=== PATIENT | female | born 1985 | race Caucasian/White ===

== ENCOUNTER → 2017-03-10 | Outpatient (CLI) | payer BC ==
[~2017-03-10] MED LIST: AMOX500C3 PO
[2017-03-10 14:41] LABS: BASO % 0.1 %; BASO ABS # 0.01 K/uL (0-0.2); COMPLETE YES; IG% 0.3 %; LYMPH % 22.5 %; LYMPH ABS # 1.61 K/uL (1.2-3.4); MEAN CORPUSCULAR HEMOGLOBIN 30.3 pg (25-34); MEAN CORPUSCULAR HGB CONC 34.4 g/dl (32-36); MEAN PLATELET VOLUME 11.5 fL (7.4-10.4); MONO % 7.7 %; NEUT % 67.4 %; PLATELET COUNT 224 K/uL (130-400); RED BLOOD COUNT 4.09 M/uL (4.2-5.4); WHITE BLOOD COUNT 7.17 K/uL (4.8-10.8)
[2017-03-13 02:55] LABS: CHLAMYDIA TRACH RNA*** NOT DETECTED (NOT DETECTED); GC (NEIS GONORRHOEAE)RNA** NOT DETECTED (NOT DETECTED)
== END | disposition home or self-care (01) ==
LOC: C.LAB1850 13:19
PROVIDERS: ATTEND Obstetrics & Gynecology
DX: Z34.81 Encounter for supervision of other normal pregnancy, first trimester (principal)

== ENCOUNTER → 2017-07-22 | Outpatient (CLI) | payer OTHER ==
[2017-07-22 12:39] LABS: HEMATOCRIT 33.8 % (37-47)
[2017-07-22 13:15] LABS: URINE APPEARANCE CLEAR (CLEAR); URINE BILIRUBIN NEG (NEG); URINE COLOR YELLOW; URINE EPITHELIAL CELL AUTO >30 /lpf (0-5); URINE NITRITE NEG (NEG); URINE SPECIFIC GRAVITY 1.019 (1.000-1.030); UROBILINOGEN NEG (NEG)
[2017-07-22 13:20] LABS: MANUAL MICROSCOPIC REQUIRED? NO; REVIEW REQ? NO
== END | disposition home or self-care (01) ==
LOC: C.LAB1850 10:37
PROVIDERS: ATTEND Obstetrics & Gynecology
DX: Z34.83 Encounter for supervision of other normal pregnancy, third trimester (principal)

== ENCOUNTER 2017-08-17 21:16 | Emergency (ER) | payer OTHER ==
[~2017-08-17] VITALS: Ht 154.9 cm; Wt 72.3 kg
[2017-08-17 21:20] VITALS: TEMP 36.9; Ht 154.9 cm; Wt 72.3 kg
[2017-08-17] MEDS ORDERED: PRENTAB26 PO (22:00)
[2017-08-17] MEDS ORDERED: CYCL5TAB PO (22:00)
[2017-08-17] MEDS ORDERED: FLUO10CA48 PO (22:00)
[2017-08-17] MEDS ORDERED: FAMO20TA9 PO (22:09)
[2017-08-17] MEDS ORDERED: NVLNI SC (22:09)
--- NOTE | 2017-08-17 22:09 | EMERGENCY ROOM VISIT NOTE ---
History Report prepared by Robin: Daniel Batista Under the Supervision of: Dr. Wendy Polanco M.D. First contact with patient: 21:36 Chief Complaint: HEADACHE Stated Complaint: IN AND OUT DOUBLE VISION, LIGHT SENSITIVITY, History of Present Illness The patient is a 32 year old female who is 32 weeks with gestational diabetes presents to the Emergency Room with complaints of intermittent headaches since last night. The patient's OBGYN advised her to come to the ED for evaluation. She states that when she came back from grocery shopping last night she felt tired and her muscles felt really stiff. She started to experience double vision and a difficult time focusing her vision. The patient reports that she sat down to dinner with her family and her daughter noticed that her right eye was crossed. She notes that she felt confused as though she was playing a video game in her head. She states that when her vision returned to normal, she noticed her body was colder than normal. She states that she was wearing four layers of clothing and could not get warm. She states that the double vision returned again this evening and has been coming and going. She also notes right eye pain. She currently rates her pain an 8/10 in severity. She denies any history of similar symptoms. The patient denies any history of tick bites. She notes her blood pressure is usually normal, though it has been higher than normal today. She has a history of fibromyalgia. The patient notes her sugar has been average, though the highest it has recently been is 180 and the lowest it has been is 30. She states that it rarely gets high and has been getting lower than normal and hovering around 55. She notes that it was 115 last night. She took 25 units of insulin 30 minutes before she ate. She notes mild upper abdominal discomfort as well. Source of History: patient Onset: last night Position: head Symptom Intensity: 8/10 Quality: ache Timing: intermittent Associated Symptoms: + abdominal pain (mild) Note: She notes double vision, difficulty focusing her vision, and right eye pain. The patient denies a history of tick bites. Review of Systems See HPI for pertinent positives & negatives. A total of 10 systems reviewed and were otherwise negative. Past Medical & Surgical Medical Problems: (1) Acute urinary tract infection (2) Depression (3) fibromyalgia (4) Generalized anxiety disorder (5) Laparoscopy (6) segmental neurofibromatosis (7) [place] Teeth Removal Family History Gallbladder disease Hypertension Social History Smoking Status: Current Every Day Smoker (2-3 cigarettes/day) Alcohol Use: none Marital Status: Housing Status: lives with family Occupation Status: employed Current/Historical Medications Scheduled Famotidine (Pepcid), 20 MG PO DAILY Fluoxetine (Prozac), 10 MG PO DAILY Insulin Human NPH (Novolin N), 25-30 UNITS SC AC Multivit/Min/Iron/Fol Ac/Pren ( Vitamin), 1 TAB PO DAILY Scheduled PRN Cyclobenzaprine Hcl (Flexeril), 5 MG PO HS PRN for Muscle Spasms Allergies Coded Allergies: Ciprofloxacin (Verified Adverse Reaction, Intermediate, nausea/depression , 08/17/17) also makes her depressed Moxifloxacin (Verified Adverse Reaction, Unknown, RASH, 08/17/17) PT REPORTS GETTING "THRUSH" AFTER USING [place] AND WANTS IT LISTED A DRUG SHE HAS A REACTION TO. Physical Exam Vital Signs Date Time Temp Pulse Resp B/P (MAP) Pulse Ox O2 Delivery O2 Flow Rate FiO2 08/18/17 00:36 93 20 118/80 98 08/17/17 23:15 97 16 134/95 98 Room Air 08/17/17 22:08 106 08/17/17 21:20 36.9 110 18 138/84 98 Room Air Physical Exam Vital signs reviewed. General: Well-appearing, in no significant distress. HEENT: No scleral icterus, PERRLA, EOMI, neck supple. Atraumatic. Cardiovascular: Regular rate and rhythm, no extra sounds. Pulmonary: Clear to auscultation bilaterally, normal work of breathing. Abdomen: Soft, nontender, nondistended, positive bowel sounds. Gravid abdomen. Musculoskeletal: Atraumatic, no peripheral edema. Neurologic: Patient awake alert and oriented x 3, full strength in all 4 extremities. Cranial nerves 2 through 12 grossly intact. Skin: Warm, dry, no rash Medical Decision & Procedures Laboratory Results 08/17/17 22:10 Red Blood Count 3.56, Mean Corpuscular Volume 89.9, Mean Corpuscular Hemoglobin 31.2, Mean Corpuscular Hemoglobin Concent 34.7, Mean Platelet Volume 11.2, Neutrophils (%) (Auto) 66.0, Lymphocytes (%) (Auto) 24.2, Monocytes (%) (Auto) 7.0, Eosinophils (%) (Auto) 2.5, Basophils (%) (Auto) 0.1, Neutrophils # (Auto) 5.60, Lymphocytes # (Auto) 2.05, Monocytes # (Auto) 0.59, Eosinophils # (Auto) 0.21, Basophils # (Auto) 0.01 08/17/17 22:10 Test 08/17/17 21:57 08/17/17 22:10 Urine Color YELLOW Urine Appearance CLEAR (CLEAR) Urine pH 6.0 (4.5-7.5) Urine Specific [place] 1.018 (1.000-1.030) Urine Protein NEG (NEG) Urine Glucose (UA) NEG (NEG) Urine Ketones NEG (NEG) Urine Occult Blood NEG (NEG) Urine Nitrite NEG (NEG) Urine Bilirubin NEG (NEG) Urine Urobilinogen NEG (NEG) Urine Leukocyte Esterase MODERATE (NEG) Urine WBC (Auto) 10-30 /hpf (0-5) Urine RBC (Auto) 0-4 /hpf (0-4) Urine Hyaline Casts (Auto) 1-5 /lpf (0-5) Urine Epithelial Cells (Auto) >30 /lpf (0-5) Urine Bacteria (Auto) NEG (NEG) White Blood Count 8.48 K/uL (4.8-10.8) Red Blood Count 3.56 M/uL (4.2-5.4) Hemoglobin 11.1 g/dL (12.0-16.0) Hematocrit 32.0 % (37-47) Mean Corpuscular Volume 89.9 fL (80-100) Mean Corpuscular Hemoglobin 31.2 pg (25-34) Mean Corpuscular Hemoglobin Concent 34.7 g/dl (32-36) Platelet Count 183 K/uL (130-400) Mean Platelet Volume 11.2 fL (7.4-10.4) Neutrophils (%) (Auto) 66.0 % Lymphocytes (%) (Auto) 24.2 % Monocytes (%) (Auto) 7.0 % Eosinophils (%) (Auto) 2.5 % Basophils (%) (Auto) 0.1 % Neutrophils # (Auto) 5.60 K/uL (1.4-6.5) Lymphocytes # (Auto) 2.05 K/uL (1.2-3.4) Monocytes # (Auto) 0.59 K/uL (0.11-0.59) Eosinophils # (Auto) 0.21 K/uL (0-0.5) Basophils # (Auto) 0.01 K/uL (0-0.2) RDW Standard Deviation 43.4 fL (36.4-46.3) RDW Coefficient of Variation 13.3 % (11.5-14.5) Immature Granulocyte % (Auto) 0.2 % Immature Granulocyte # (Auto) 0.02 K/uL (0.00-0.02) Prothrombin Time 9.5 SECONDS (9.0-12.0) Prothromb Time International Ratio 0.9 (0.9-1.1) Activated Partial Thromboplast Time 27.8 SECONDS (21.0-31.0) Partial Thromboplastin Ratio 1.1 Anion Gap 12.0 mmol/L (3-11) Est Creatinine Clear Calc Drug Dose 173.2 ml/min Estimated GFR () > 150.0 Estimated GFR (Non- 134.7 BUN/Creatinine Ratio 18.4 (10-20) Calcium Level 8.7 mg/dl (8.5-10.1) Total Bilirubin 0.2 mg/dl (0.2-1) Direct Bilirubin < 0.1 mg/dl (0-0.2) Aspartate Amino Transf (AST/SGOT) 15 U/L (15-37) Alanine Aminotransferase (ALT/SGPT) 18 U/L (12-78) Alkaline Phosphatase 76 U/L (45-117) Total Protein 6.1 gm/dl (6.4-8.2) Albumin 2.6 gm/dl (3.4-5.0) Thyroid Stimulating Hormone (TSH) 0.271 uIu/ml (0.300-4.500) Free Thyroxine 0.84 ng/dl (0.80-1.60) Laboratory results per my review. Medications Administered Medications (Trade) Dose Ordered Sig/Noreen Route Start Time Stop Time Status Last Admin Dose Admin Morphine Sulfate (MoRPHine SULFATE INJ) 4 mg NOW STAT IV 08/17/17 22:49 08/17/17 22:50 DC 08/17/17 23:38 4 MG Ondansetron HCl (Zofran Inj) 4 mg NOW STAT IV 08/17/17 22:49 08/17/17 22:50 DC 08/17/17 23:36 4 MG Acetaminophen (Tylenol Tab) 650 mg NOW STAT PO 08/17/17 22:49 08/17/17 22:50 DC 08/17/17 23:35 650 MG Sodium Chloride 1,000 ml @ 999 mls/hr Q1H1M STAT IV 08/17/17 22:50 08/17/17 23:56 DC 08/17/17 23:35 999 MLS/HR ECG Indication: other (headache) Rate (beats per minute): 97 Rhythm: normal sinus Findings: no acute ischemic change, no ectopy Comparison ECG Date: Change: Patient's electrocardiogram interpreted by me. ED Course 2148: Past medical records reviewed. The patient was evaluated in room C11B. A complete history and physical examination was performed. 2248: Ordered Tylenol 650 mg PO, Zofran 4 mg IV, and Morphine Sulfate 4 mg IV 0: Ordered Sodium Chloride 1,000 ml @ 999 mls/hr IV 2325: I reassessed the patient at this time. The patient's insurance lapsed. She has refused an MRI and further workup, because she cannot afford it. She was referred to [facility] and still declines further workup. 0015: I reassessed the patient at this time. She is asymptomatic and resting comfortably. I discussed the results and treatment plan with the patient. I answered all pertaining questions that she had. She expressed understanding and verbalized agreement. The patient will be discharged home. 0033: I spoke with .SWATHI Cuenca. We discussed the patients case. He will follow up with the patient. Medical Decision Differential diagnosis: Etiologies such as migraine headache, meningitis, sinusitis, CO exposure, ICH, SAH, infection, tumor, headache, sinus thrombosis, arterial dissection, as well as others were entertained. This patient was evaluated and appeared to be in no significant distress. IV access was obtained and laboratory work was drawn. The patient was placed on the cardiac cath tech. She was hydrated with normal saline solution. Patient did receive IV morphine and Zofran for her pain. Patient's urinalysis reveals WBCs but is contaminated with epithelial cells. There is no protein. Laboratory work reveals a normal WBC with a mild anemia and a stable platelet count. MRI of the brain was ordered due to the complaints of diplopia and what sounds like a cranial nerve palsy. The patient was informed that her insurance is not currently active by registration. The patient became very anxious and tearful. She is currently from her and is not quite sure how it happened. She has declined the MRI despite being referred to medical access and informed of the karen care program through the hospital. She states she cannot afford the MRI. The patient has no double vision currently. There is no evidence of cranial nerve palsy on exam. I did discuss the presentation with Dr. Gregory of [facility]. I do feel of the patient should likely have an MRI. She was informed of the concern and reiterated her unwillingness to perform this study due to insurance issues. She was again encouraged to have the study but declined. The patient was discharged to follow-up with her physicians as an outpatient. She will return to the ER immediately for worsening of symptoms or any medical concerns. Medication Reconcilliation Current Medication List: was personally reviewed by me Blood Pressure Screening Patient's blood pressure: Elevated blood pressure Blood pressure disposition: Elevated BP felt to be situational Consults Time Called: [id number] Consulting Physician: SWATHI Cuenca Returned Call: [phone] I spoke with .SWATHI Cuenca. We discussed the patients case. He will follow up with the patient. Impression Primary Impression: Headache Additional Impressions: Diplopia Third trimester Scribe Attestation The scribe's documentation has been prepared under my direction and personally reviewed by me in its entirety. I confirm that the note above accurately reflects all work, treatment, procedures, and medical decision making performed by me. Departure Information Dispostion Home / Self-Care Referrals No Doctor, Assigned (PCP) Forms HOME CARE DOCUMENTATION FORM, IMPORTANT VISIT INFORMATION Patient Instructions My [facility] Additional Instructions Diagnosis: Headache, diplopia, third trimester You have declined further evaluation including MRI of the brain tonight. Please return if you reconsider or have a change in symptoms. Tylenol 650 mg every 6 hours as needed for pain. Drink plenty of clear fluids. Follow-up with [employer] this week for reevaluation. Return to the emergency department for worsening of symptoms or any medical concerns. Problem Qualifiers
[2017-08-17 22:20] LABS: BASO % 0.1 %; BASO ABS # 0.01 K/uL (0-0.2); EOS % 2.5 %; EOS ABS # 0.21 K/uL (0-0.5); HEMOGLOBIN 11.1 g/dL (12.0-16.0); IG# 0.02 K/uL (0.00-0.02); LYMPH % 24.2 %; LYMPH ABS # 2.05 K/uL (1.2-3.4); MEAN CELL VOLUME 89.9 fL (80-100); MEAN CORPUSCULAR HEMOGLOBIN 31.2 pg (25-34); MEAN CORPUSCULAR HGB CONC 34.7 g/dl (32-36); MEAN PLATELET VOLUME 11.2 fL (7.4-10.4); MONO ABS # 0.59 K/uL (0.11-0.59); PLATELET COUNT 183 K/uL (130-400); RED CELL DISTRIBUTION WIDTH CV 13.3 % (11.5-14.5); RED CELL DISTRIBUTION WIDTH SD 43.4 fL (36.4-46.3); WHITE BLOOD COUNT 8.48 K/uL (4.8-10.8)
[2017-08-17 22:37] LABS: ALBUMIN 2.6 gm/dl (3.4-5.0); ALT/SGPT 18 U/L (12-78); BLOOD UREA NITROGEN 8 mg/dl (7-18); CALCIUM 8.7 mg/dl (8.5-10.1); CARBON DIOXIDE 22 mmol/L (21-32); CREATININE 0.42 mg/dl (0.60-1.20); GLUCOSE 103 mg/dl (70-99); POTASSIUM 3.4 mmol/L (3.5-5.1); SODIUM 140 mmol/L (136-145)
[2017-08-17 22:41] LABS: INR 0.9 (0.9-1.1); PTT PATIENT 27.8 SECONDS (21.0-31.0)
[2017-08-17 22:48] LABS: ALKALINE PHOSPHATASE 76 U/L (45-117); AST/SGOT 15 U/L (15-37); TOTAL PROTEIN 6.1 gm/dl (6.4-8.2)
[2017-08-17] MEDS ORDERED: ONDANSETRON INJ 2 MG/ML 2 ML VIAL IV STA (22:49)
[2017-08-17] MEDS ORDERED: MoRPHine SULFATE 4 MG/ML 1 ML CARP\\VIAL IV STA (22:49)
[2017-08-17] MEDS ORDERED: ACETAMINOPHEN 325 MG TAB PO STA (22:49)
[2017-08-17] MEDS ORDERED: SODIUM CHLORIDE 0.9% 1000ML 1,000 ML IV STA (22:50)
[2017-08-18 00:36] VITALS: BP 118/80; PULSE 93; O2SAT 98
== END 2017-08-18 00:40 | disposition home or self-care (01) ==
LOC: C.EDB 21:18 → C.EDC 08-18 00:40
DX: R51 Headache (principal); H53.2 Diplopia; O26.893 Other specified pregnancy related conditions, third trimester; O24.414 Gestational diabetes mellitus in pregnancy, insulin controlled; R10.9 Unspecified abdominal pain; Z3A.32 32 weeks gestation of pregnancy; F32.9 Major depressive disorder, single episode, unspecified; F41.9 Anxiety disorder, unspecified; M79.7 Fibromyalgia; Z79.899 Other long term (current) drug therapy; Z87.440 Personal history of urinary (tract) infections; Z82.49 Family history of ischemic heart disease and other diseases of the circulatory system; Z83.79 Family history of other diseases of the digestive system; F17.210 Nicotine dependence, cigarettes, uncomplicated

== ENCOUNTER 2017-08-26 09:58 | Outpatient (CLI) | payer OTHER ==
[~2017-08-26] VITALS: Ht 154.9 cm; Wt 72.3 kg
[~2017-08-26 09:58] MED LIST changes: -AMOX500C3 PO; +CYCL5TAB PO; +FAMO20TA9 PO; +FLUO10CA48 PO; +NVLNI SC; +PRENTAB26 PO
[2017-08-26 11:34] LABS: BASO % 0.2 %; BASO ABS # 0.02 K/uL (0-0.2); EOS % 1.8 %; EOS ABS # 0.23 K/uL (0-0.5); HEMATOCRIT 33.2 % (37-47); HEMOGLOBIN 11.6 g/dL (12.0-16.0); IG# 0.03 K/uL (0.00-0.02); LYMPH % 13.4 %; LYMPH ABS # 1.68 K/uL (1.2-3.4); MEAN CELL VOLUME 89.5 fL (80-100); MEAN CORPUSCULAR HEMOGLOBIN 31.3 pg (25-34); MEAN PLATELET VOLUME 11.5 fL (7.4-10.4); MONO % 5.7 %; MONO ABS # 0.72 K/uL (0.11-0.59); NEUT % 78.7 %; NEUT ABS # 9.86 K/uL (1.4-6.5); PLATELET COUNT 161 K/uL (130-400); RED CELL DISTRIBUTION WIDTH CV 13.5 % (11.5-14.5); WHITE BLOOD COUNT 12.54 K/uL (4.8-10.8)
[2017-08-26 11:37] LABS: MEAN CORPUSCULAR HGB CONC 34.9 g/dl (32-36)
[2017-08-26 11:55] LABS: ALT/SGPT 26 U/L (12-78); AST/SGOT 16 U/L (15-37); CREATININE 0.33 mg/dl (0.60-1.20); URIC ACID 3.6 mg/dl (2.6-7.2)
[2017-08-26] MEDS ORDERED: INSUINJ7 SC (12:11)
[2017-08-26 12:16] VITALS: Ht 154.9 cm; Wt 72.3 kg
[2017-08-26] MEDS ORDERED: BETAMETH SOD PHOS/ACETATE IA 6 MG/ML IM STA (12:21)
[2017-08-26] MEDS ORDERED: PENICILLIN G POTASSIUM IV 3 MU in DEXTROSE 5% 100ML 100 ML IV PRN (12:30)
[2017-08-26] MEDS ORDERED: PENICILLIN G POTASSIUM IV 6 MU in DEXTROSE 5% 250ML 250 ML IV ONE (12:45)
== END 2017-08-26 13:25 | disposition short-term general hospital (02) ==
LOC: C.LD 09:58 → C.OPB 09:58
PROVIDERS: ATTEND Obstetrics & Gynecology
DX: O46.93 Antepartum hemorrhage, unspecified, third trimester (principal); O24.419 Gestational diabetes mellitus in pregnancy, unspecified control; O36.5930 Maternal care for other known or suspected poor fetal growth, third trimester, not applicable or unspecified; Z3A.33 33 weeks gestation of pregnancy

== ENCOUNTER → 2017-09-10 | Outpatient (CLI) | payer BC ==
[~2017-09-10] MED LIST changes: +INSUINJ7 SC
--- NOTE | 2017-09-10 10:57 | DIAGNOSTIC IMAGING REPORT ---
BRAIN WITHOUT CONTRAST HISTORY: 32 years-old Female DIPOLPIA - STAT acute vision with history of chronic headaches. The patient is currently . COMPARISON: CT head 05/05/2016 TECHNIQUE: Multiplanar multisequence MRI of the brain was obtained without the use of contrast. FINDINGS: There is no restricted diffusion to suggest acute infarction. The midline structures including the corpus callosum, brainstem, optic chiasm, pituitary and pineal glands appear unremarkable the sagittal T1 series. 4 mm pineal gland cyst incidentally noted. There is no acute intracranial hemorrhage, midline shift, abnormal extra-axial collections, hydrocephalus or intracranial mass identified. No focal brain parenchymal signal abnormalities are seen. The major flow voids at the level of the skull base appear patent. Mastoid air cells are clear. Mild mucosal thickening of the ethmoid air cells with mild rightward deviation of the nasal septum. Left vanda bullosa. The scalp, calvarium and soft tissues are unremarkable. Orbits are within normal limits. IMPRESSION: No acute intracranial abnormality. The above report was generated using voice recognition software. It may contain grammatical, syntax or spelling errors. Electronically signed by: James Tolliver M.D. 09/10/2017 10:56 AM Dictated Date/Time: 09/10/2017 10:52 AM
== END ==
LOC: C.MRI 10:03
PROVIDERS: ATTEND Student in an Organized Health Care Education/Training Program
DX: H53.2 Diplopia (principal)

== ENCOUNTER 2017-09-23 11:00 | Inpatient (IN) | payer BC ==
[~2017-09-23] VITALS: Ht 154.9 cm; Wt 73.6 kg
[2017-09-23] MEDS ORDERED: LACTATED RINGER'S 1000ML 1,000 ML IV SCH (11:22)
[2017-09-23] MEDS ORDERED: LACTATED RINGER'S 1000ML 1,000 ML IV PRN (11:22)
[2017-09-23] MEDS ORDERED: EpHEDrine SULFATE INJ 50 MG/ML AMP ONE (11:35)
[2017-09-23] MEDS ORDERED: BUPIVACAINE 0.25% 30 ML VIAL ONE (11:35)
[2017-09-23] MEDS ORDERED: FENTANYL CITRATE INJ 50 MCG/1 ML 2 ML VIAL ONE (11:35)
[2017-09-23] MEDS ORDERED: FENTANYL 2MCG/ML ROPIV 1.25MG/ML 100ML BAG EPI ONE (11:36)
[2017-09-23 12:02] LABS: HEMATOCRIT 35.2 % (37-47); HEMOGLOBIN 12.3 g/dL (12.0-16.0); MEAN CELL VOLUME 88.7 fL (80-100); MEAN CORPUSCULAR HGB CONC 34.9 g/dl (32-36); MEAN PLATELET VOLUME 11.5 fL (7.4-10.4); PLATELET COUNT 192 K/uL (130-400); RED CELL DISTRIBUTION WIDTH CV 13.3 % (11.5-14.5); RED CELL DISTRIBUTION WIDTH SD 43.5 fL (36.4-46.3); WHITE BLOOD COUNT 11.53 K/uL (4.8-10.8)
[2017-09-23] MEDS ORDERED: LACTATED RINGER'S 1000ML 500 ML IV PRN (12:40)
[2017-09-23] MEDS ORDERED: NALOXONE HCL INJ 1 MG in SODIUM CHLORIDE 0.9% 1000ML 1,000 ML IV PRN (12:40)
[2017-09-23] MEDS ORDERED: OXYTOCIN 30 UNITS/500ML NSS IV ONE (12:44)
[2017-09-23] MEDS ORDERED: ONDANSETRON INJ 2 MG/ML 2 ML VIAL IV PRN (12:45)
[2017-09-23] MEDS ORDERED: NALOXONE HCL INJ 0.4 MG/1 ML VIAL/CARP IV PRN (12:45)
[2017-09-23] MEDS ORDERED: FENTANYL 2MCG/ML ROPIV 1.25MG/ML 100ML BAG EPI PRN (12:45)
[2017-09-23] MEDS ORDERED: NALBUPHINE HCL INJ 10 MG/ML AMP IV PRN (12:45)
[2017-09-23] MEDS ORDERED: EpHEDrine SULFATE INJ 50 MG/ML AMP IV PRN (12:45)
[2017-09-23] MEDS ORDERED: DiphenhydrAMINE HCL 50 MG/ML VIAL IV PRN (12:45)
[2017-09-23 13:15] VITALS: Ht 154.9 cm; Wt 73.6 kg
[2017-09-23] MEDS ORDERED: FLUO20CA35 PO (13:21)
[2017-09-23] MEDS ORDERED: CYCL10TA6 PO (13:21)
[2017-09-23] MEDS ORDERED: BENZOCAINE 20% AER SPR 82.5 GM CAN EXT PRN (16:00)
[2017-09-23] MEDS ORDERED: OXYTOCIN 30 UNITS/500ML NSS IV PRN (16:00)
[2017-09-23] MEDS ORDERED: SUPERCREAM 0.870 % 15GM JAR EXT PRN (16:00)
[2017-09-23] MEDS ORDERED: HYDROCORTISONE ACETATE 25 MG SUPP PR PRN (16:00)
--- NOTE | 2017-09-23 16:02 | Anesthesia Procedure Note ---
Anesthesia Epidural Removal Nt Date & Time Sep 23, 2017 at 16:02 Vital Signs Pain Intensity: 6.0 Notes Mental Status: alert / awake / arousable, participated in evaluation Nausea / Vomiting: adequately controlled Pain: adequately controlled Airway Patency, RR, SpO2: stable & adequate BP & HR: stable & adequate Hydration State: stable & adequate Neuraxial Anesthesia: was administered, sensory block is resolving Anesthetic Complications: no major complications apparent, pt satisfied with anesthetic care Epidural: removed without complications, with tip intact
--- NOTE | 2017-09-23 16:33 | DELIVERY SUMMARY ---
DATE OF OPERATION: 09/23/2017 PREDELIVERY DIAGNOSES: 1. A 32-year-old G4, P1-0-2-1 at 37 weeks and 1 day. 2. Spontaneous labor. 3. Gestational diabetes mellitus a2. 4. Intrauterine growth restriction. 5. RH negative. POSTDELIVERY DIAGNOSES: Same. PROCEDURE: Spontaneous vaginal delivery. ESTIMATED BLOOD LOSS: 300 mL. FINDINGS: Viable male . Apgars 8 and 9. Weight pending. Please see nursery records. DESCRIPTION OF DELIVERY: The patient presented in spontaneous labor, received an epidural and progressed to complete. Spontaneous rupture of membranes just prior to beginning to push. She progressed to complete, has spontaneous rupture of membranes and began to push. She then spontaneously vaginally delivered a viable male from the cephalic presentation. The head delivered in right occiput anterior position followed by the shoulders and body. The baby was placed on mother's abdomen. A spontaneous cry was heard. The cord was doubly clamped and cut. A segment was retained for cord gases. Cord blood was obtained and the placenta was delivered spontaneously intact with a 3-vessel cord. Pitocin was given. The uterus became firm. The uterus and vagina were cleared of all clots and debris. The cervix, vagina and perineum were inspected and a first degree perineal laceration was noted; however, was superficial and noted to be hemostatic and therefore, not repaired. The mother and baby tolerated delivery well and recovering in the room in stable and good condition. Sponge and instrument counts were complete at the conclusion of the delivery x2. I attest to the content of the Intraoperative Record and any orders documented therein. Any exception s are noted below.
[2017-09-23] MEDS: IBUPROFEN 600 MG TAB PO PRN ×2 (18:01→23:05)
[2017-09-23 18:30] VITALS: BP 118/79; PULSE 100; TEMP 36.9; O2SAT 97
[2017-09-23 19:40] VITALS: BP 123/82; PULSE 83; TEMP 36.5
[2017-09-23] MEDS: DOCUSATE SODIUM 100 MG CAP PO SCH (19:59)
[2017-09-23] MEDS: OXYCODONE/ACETAMINOPHEN 5-325 TAB PO PRN (20:00)
[2017-09-24] MEDS: OXYCODONE/ACETAMINOPHEN 5-325 TAB PO PRN ×5 (00:09→17:56)
[2017-09-24 00:15] VITALS: BP 126/86; PULSE 83; TEMP 36.7
[2017-09-24 03:15] VITALS: BP 113/74; PULSE 80; TEMP 36.5
[2017-09-24] MEDS: IBUPROFEN 600 MG TAB PO PRN ×5 (03:20→20:01)
[2017-09-24 06:24] LABS: HEMATOCRIT 32.4 % (37-47); HEMOGLOBIN 11.2 g/dL (12.0-16.0)
[2017-09-24] MEDS: DOCUSATE SODIUM 100 MG CAP PO SCH ×2 (07:29→19:49)
[2017-09-24 08:00] VITALS: BP 111/78; PULSE 81; TEMP 36.2; O2SAT 97
--- NOTE | 2017-09-24 09:00 | OB/GYN Progress Note ---
[employer] Progress Note Date of Service Sep 24, 2017. Subjective conversation w/ patient, physical exam Ambulation: ambulating normally Voiding: no voiding problems Passing Gas: Yes Diet Tolerance: Regular Diet Lochia: Moderate Feeding Type: Bottle Feeding Pain: controlled Review of Systems Constitutional: No problem reported Respiratory: No problem reported Cardiac: No problem reported Breast: No problem reported Abdomen: No problem reported Female : No problem reported Objective Vital Signs Date Time Temp Pulse Resp B/P (MAP) Pulse Ox O2 Delivery O2 Flow Rate FiO2 09/24/17 03:15 36.5 80 18 113/74 (87) Room Air 09/24/17 00:15 36.7 83 20 126/86 (99) Room Air 09/24/17 00:15 Room Air 09/23/17 19:40 36.5 83 20 123/82 (96) Room Air 09/23/17 18:30 36.9 100 18 118/79 (92) 97 09/23/17 18:30 Room Air Physical Exam General Appearance: WELL-APPEARING, NO APPARENT DISTRESS Respiratory/Chest: no respiratory distress Cardiovascular: regular rate, rhythm Abdomen: non tender, soft Fundus: Firm Extremities: normal inspection Laboratory Results Last 24 Hours Test 09/23/17 11:47 09/24/17 05:39 White Blood Count 11.53 K/uL Red Blood Count 3.97 M/uL Hemoglobin 12.3 g/dL 11.2 g/dL Hematocrit 35.2 % 32.4 % Mean Corpuscular Volume 88.7 fL Mean Corpuscular Hemoglobin 31.0 pg Mean Corpuscular Hemoglobin Concent 34.9 g/dl RDW Standard Deviation 43.5 fL RDW Coefficient of Variation 13.3 % Platelet Count 192 K/uL Mean Platelet Volume 11.5 fL Assessment and Plan Post- Day Number: 1 Continue Routine Care: PPD#1 doing well. Routine care.
--- NOTE | 2017-09-24 09:01 | Discharge Instructions ---
Discharge Instructions Date of Service Sep 24, 2017. Admission Reason for Admission: Spontaneous Onset Of Labor Discharge Discharge Diagnosis / Problem: s/p vaginal delivery Discharge Goals Goal(s): Routine recovery after delivery Activity Recommendations Activity Limitations: per Instructions/Follow-up section . Instructions / Follow-Up Instructions / Follow-Up ACTIVITY RECOMMENDATIONS: * Gradual return to full activity over the next 2-3 weeks. * No lifting - nothing heavier than baby over the next 2-3 weeks. * Do not engage in vigorous exercise, sexual activity or sports until cleared by your physician. * Do not drive or operate any motorized equipment until cleared by your physician. * You may shower/bathe daily. MEDICATIONS: For discomfort or pain, you may use Acetaminophen (Tylenol), Ibuprofen (Advil), or Naproxen (Aleve) following the package directions. For constipation you may use Colace following the package directions. BREAST CARE: If you are not breast feeding: * Wear a supportive bra 24 hours a day for one to two weeks. * Avoid stimulating your breasts and nipples as much as possible during the first few weeks after delivery. * When taking a shower, have the warm water hit your back, not breasts. * When your breasts feel full, apply ice packs. Usually three to four times a day helps ease the discomfort. * Take a mild pain medication (Tylenol / Motrin) when you are uncomfortable. If breast feeding: * Use breast milk to lubricate nipples. Lansinoh cream may be used for sore nipples. You do not need to remove cream prior to breast feeding. If using a different brand of cream, check the label for directions regarding removal of cream prior to nursing. * Wear a supportive bra. * If having problems with breasts or breast feeding, call a consultant intern or your health care provider. EPISIOTOMY CARE: After delivery, if you have an episiotomy (stitches), the following steps will ease discomfort and aid healing. * For the first 24 hours after delivery, place ice packs next to your episiotomy to help reduce swelling. * After the first 24 hour-period, sitz baths, either portable or in the tub, are suggested. A shower with a shower arm sprayed over the episiotomy may be comforting. * Sylwia care should be done after each voiding and bowel movement. Squirt warm water from a plastic bottle over the perineum (region of the body between the anus and urinary opening) and pat dry. * Use Dermoplast to ease discomfort. Shake container. Freedom directly over the episiotomy. Place a Tucks on a clean sanitary pad next to your episiotomy. SPECIAL CARE INSTRUCTIONS: When you are discharged from the hospital, it is important for you to follow the instructions listed below: * During the first week at home, you should be able to care for yourself and your baby. In addition, the usual light household activities are encouraged. * Limit your activities to the way you feel. Do not try to clean the house or move furniture. Be sensible. * If you actively engage in sports and have done so up until the time of your delivery, you may resume these activities as soon as you feel able. This may take up to one month or even longer. Use good judgment. * Continue to take your vitamins for at least six weeks after the of your baby. * Your diet need not be limited unless you were on a special diet before your delivery. Breast-feeding mothers need around 2500 calories per day and at least 64-80 ounces of fluid per day (8 to 10 glasses). * You should eat foods from the four major food groups. Crash diets or fad diets are to be avoided. Eating lean meats, fresh fruits and vegetables, low-fat dairy products, high fiber foods and a regular exercise program, will help you get back to your pre- weight without putting your health at risk. * Constipation is sometimes a problem after delivery. Take a mild laxative as needed. If breast feeding, Milk of Magnesia is acceptable to use. You may use a suppository or Fleets enema if no episiotomy. * A daily shower or tub bath is suggested. Be sure to thoroughly and gently dry the perineum. * A bloody vaginal discharge will usually continue until around four weeks post . A small amount of bleeding may continue for as long as six weeks. Vaginal discharge changes from the bright red bleeding after delivery to pink then brownish and finally yellowish-pink before becoming white and disappearing. * Bleeding may increase with activity. Your first period may come in 4-8 weeks. If you are breast feeding, your period may be delayed even longer. * [employer] (sex) can begin whenever both you and your partner feel comfortable and do not have any form of genital infection. It is recommended that you wait at least six weeks for internal and external healing to occur. If you have questions, please talk to your health care practitioner. A condom should be used to prevent infection and . * Foreplay, gentle intercourse and lubrication is very important the first several times to prevent pain. A water-based lubricant such as K-Y jelly or Astroglide may be used. * If you have RH negative blood and your baby is RH positive, you will receive RHOGAM by injection prior to discharge. The nurse will give you a card to keep with you that has the date and place that you received RHOGAM after delivery. * During your care, you had a Rubella screen done to check for the presence of rubella antibodies in your blood. If your test was negative, you will receive a Rubella vaccine prior to discharge. This vaccine may cause a fever, soreness at the injection site and flu-like symptoms. If these symptoms persist, notify your health care practitioner. is not advised for one month after a Rubella vaccine. * Verbalizes understanding of car seat law as reviewed with patient nursing. * Car Seat hand-out given and reviewed with patient by nursing. * Shaken baby information reviewed with patient by nursing. Call you doctor if: * Heavy bleeding (saturating several pads an hour) or passing clots the size of your fist. * A fever >101 degrees F (38.3 degrees C) on two occasions four hours apart and /or chills. * Unusual pain in the pelvic or vaginal areas. * "Baby Blues" lasting longer than two weeks. If you have any questions or concerns, call your health care practitioner at . FOLLOW UP VISIT: * Please call the office at to schedule a 6 week examination. It is important you keep this appointment. It is important for you to make arrangements for either yearly or twice yearly check-ups thereafter. Current Hospital Diet Patient's current hospital diet: Regular OB Diet Discharge Diet Recommended Diet: Regular Diet Pending Studies Studies pending at discharge: no Medical Emergencies . Who to Call and When: Medical Emergencies: If at any time you feel your situation is an emergency, please call 911 immediately. . Non-Emergent Contact Non-Emergency issues call your: Primary Care Provider, Knitting Machine Operator Helper . . "Provider Documentation" section prepared by Kamila Nuñez. .
[2017-09-24 12:10] VITALS: BP 109/74; PULSE 80; TEMP 36.6; O2SAT 97
[2017-09-24 15:50] VITALS: BP 123/85; PULSE 78; TEMP 36.6; O2SAT 98
[2017-09-24] MEDS ORDERED: BISACODYL 5 MG TABEC PO SCH (20:00)
[2017-09-24] MEDS ORDERED: TRAMADOL HCL 50 MG TAB PO PRN (21:45)
[2017-09-24 23:15] VITALS: BP 124/86; PULSE 85; TEMP 36.9; O2SAT 98
[2017-09-24] MEDS ORDERED: NURSING VERBAL MED ORDER ONE (23:45)
[2017-09-25] MEDS ORDERED: FLUOXETINE HCL 20 MG CAP PO STA (00:41)
[2017-09-25] MEDS ORDERED: ZOLPIDEM TARTRATE 5 MG TAB PO PRN (00:45)
[2017-09-25] MEDS: OXYCODONE/ACETAMINOPHEN 5-325 TAB PO PRN ×2 (01:06→08:50)
[2017-09-25] MEDS: IBUPROFEN 600 MG TAB PO PRN ×2 (04:11→08:51)
--- NOTE | 2017-09-25 08:04 | Progress Note ---
Subjective Sep 25, 2017. Subjective conversation w/ patient, physical exam Ambulation: ambulating normally Voiding: no voiding problems Passing Gas: Yes Diet Tolerance: Regular Diet Lochia: Small Feeding Type: Bottle Feeding Pain: alot of cramping but then has pelvic pain related to fibromyalgia Objective Vital Signs Date Time Temp Pulse Resp B/P (MAP) Pulse Ox O2 Delivery O2 Flow Rate FiO2 09/24/17 23:15 98 Room Air 09/24/17 23:15 36.9 85 20 124/86 (99) 98 Room Air 09/24/17 15:50 36.6 78 18 123/85 (98) 98 Room Air 09/24/17 15:50 98 Room Air 09/24/17 12:10 36.6 80 18 109/74 (86) 97 Room Air Physical Exam General Appearance: WELL-APPEARING, WD/WN, NO APPARENT DISTRESS Respiratory/Chest: lungs clear Cardiovascular: regular rate, rhythm Abdomen: non tender, soft Fundus: Firm, Non-Tender, Relation to Umbilicus (2 down) Extremities: non-tender Assessment and Plan Problem List Medical Problems: (1) Diplopia Status: Acute (2) Third trimester Status: Acute Post- Day#: 2 Continue Routine Care: stable, desires d/c home. wants to use tylenol with codeine if needed for cramps. will give her small amount. checked on pa pdmp. advised she make pcp appt as she most likely needs to get back on her regimen for fibromyalgia. she says that is usually toradol. instructions reviewed. discussed mood and crying last night. she says she felt overwhelmed but better now after getting sleep. she is bottle feeding, got rhogam. mom to help her today, estranged partner to help her friday and into weekend. says she has friends and good support. offered SS consult to see if can get her help with VNA and she declines. Does not feel she needs. Does not want 2wk check, says will call if needed. plan 6 wk pp check. she does look like herself to me this am, i have known her well through the course and she has had alot of stressors, particularly with her partner leaving her.
[2017-09-25] MEDS ORDERED: ACET300T2 PO (08:08)
[2017-09-25 08:35] VITALS: BP 112/79; PULSE 92; TEMP 36.8
[2017-09-25] MEDS: DOCUSATE SODIUM 100 MG CAP PO SCH (08:51)
[2017-09-25 11:00] VITALS: BP_DIAS 79; PULSE 92; TEMP 36.8
== END 2017-09-25 11:15 | disposition home or self-care (01) | DRG 775 ==
LOC: C.OPB 11:00 → C.LD 11:01 → C.OPB 11:23 → C.OBG 18:49
PROVIDERS: ADMIT Obstetrics & Gynecology; ATTEND Obstetrics & Gynecology
PROC: 10E0XZZ Delivery of Products of Conception, External Approach (ICD-10-PCS; principal; 2017-09-23)
DX: O36.0130 Maternal care for anti-D [Rh] antibodies, third trimester, not applicable or unspecified (principal); O24.424 Gestational diabetes mellitus in childbirth, insulin controlled; O36.5930 Maternal care for other known or suspected poor fetal growth, third trimester, not applicable or unspecified; O99.344 Other mental disorders complicating childbirth; F32.9 Major depressive disorder, single episode, unspecified; F41.9 Anxiety disorder, unspecified; Z3A.37 37 weeks gestation of pregnancy; Z37.0 Single live birth; Z87.59 Personal history of other complications of pregnancy, childbirth and the puerperium; Z87.891 Personal history of nicotine dependence; Z79.4 Long term (current) use of insulin; Z79.899 Other long term (current) drug therapy; Z88.1 Allergy status to other antibiotic agents

== ENCOUNTER → 2017-10-03 | Outpatient (CLI) | payer BC ==
[~2017-10-03] MED LIST changes: +ACET300T2 PO; +CYCL10TA6 PO; -CYCL5TAB PO; -FLUO10CA48 PO; +FLUO20CA35 PO; -INSUINJ7 SC; -NVLNI SC
== END | disposition home or self-care (01) ==
LOC: C.LAB1850 12:27
PROVIDERS: ATTEND Obstetrics & Gynecology
DX: N36.8 Other specified disorders of urethra (principal)

== ENCOUNTER 2021-04-09 15:52 | Observation (INO) ==
[2021-04-09] MEDS ORDERED: ONDANSETRON INJ 2 MG/ML 2 ML VIAL IV PRN (16:33)
--- NOTE | 2021-04-09 16:43 | History & Physical Report ---
Date of Service April 09, 2021 Assessment & Plan (1) Gastroenteritis: Plan: 6 days of GI symptoms; will check CBC, BMP, Covid, and provide IV hydration. (2) contractions: Plan: Multiparous cervix vs contractions/labor. Hard to differentiate as patient is a multip but also does c/o low back ache with non-timeable cramping. The cramps could be due to either bowel cramps with her enteritis, or contractions. Will observe on L&D and reassess to determine if cervical change is occurring. History of Present Illness Primary Care Provider: Ria Echeverria 35yo with c/o 6 days of n/v/d and now low back ache with "constant" cramping, presents to ER and is admitted to L&D due to at 32wk GA. Good FM, no LOF, no VB. Allergies Allergy/AdvReac Type Severity Reaction Status Date / Time adhesive Allergy Intermediate RASH Verified 03/29/21 09:17 Cipro AdvReac Intermediate nausea/depr Verified 09/23/17 13:15 ession ciprofloxacin AdvReac Intermediate nausea/depr Verified 03/29/21 09:17 ession moxifloxacin AdvReac Unknown RASH Verified 03/29/21 09:17 Home Medications Medication Instructions Recorded Confirmed Type prenat.vits,saul,wsn-ankz-curas 1 tab PO UD 03/03/19 03/29/21 History diphenhydramine 25 2 tab PO HS 12/31/19 03/29/21 History mg-acetaminophen 500 mg tablet (Tylenol PM Extra Strength) duloxetine [Cymbalta] PO 06/01/20 03/29/21 History acetone (urine) test (Ketone Urine #50 ea 11/17/20 03/29/21 Rx Test) blood sugar diagnostic (OneTouch #150 ea 11/17/20 03/29/21 Rx Verio test strips) blood-glucose meter (OneTouch #1 ea 11/17/20 03/29/21 Rx Verio Reflect Meter) lancets 33 gauge (OneTouch Delica #150 ea 11/17/20 03/29/21 Rx Lancets) famotidine PO 12/27/20 03/29/21 History pyridoxine (vitamin B6) [Vitamin PO 12/27/20 03/29/21 History B-6] promethazine 25 mg tablet 25 mg PO Q4H PRN #20 tab 04/06/21 Rx Patient History Medical History Anxiety Depression Depression with anxiety Fibromyalgia Generalized anxiety disorder (01/30/13) Gestational diabetes History of chicken pox Irritable bowel syndrome 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) Obsessive compulsive disorder Surgical History H/O laparoscopy (01/30/13) H/O wisdom tooth extraction Family History Mother Stroke Hypertension Father Hypertension Denies family history of Ovarian cancer Breast cancer Colorectal cancer Social History Smoking Status: Current every day smoker Tobacco Type: E-cigarettes / Vaping Cigarettes Per Day: 5-6; Second Hand Exposure: No; Tobacco Cessation Education Requested by Patient: No Hx Alcohol Use: No Hx Substance Use: No Preferred Language: Malay marital status: marital status details: Bashir Zuniga [phone] Current Living Situation: Spouse and Family Current Living Situation Comment: lives with spouse, 2 children, cat-spouse ch anging litter current occupational status: employed current occupation: [employer] ann Feels Safe at Home: Yes Safety Concerns: Feels Safe At This Time Physical Exam Constitutional: WD/WN, vitals as above Eyes: PERRL, conjunctivae normal, anicteric sclerae ENMT: external ear and nose normal, oropharynx normal Neck: supple Respiratory: normal respiratory effort and able to speak in complete sentences; no respiratory distress Cardiovascular: Rate/Rhythm: regular rate and regular rhythm Gastrointestinal (Abdomen): Gravid / AGA, nontender Musculoskeletal: no cyanosis or clubbing, extremities motor strength 5/5 Skin: no rashes, warm and dry Neurologic: patellar DTR's 2+ bilat, sensation intact Psychiatric: A+Ox3, euthymic affect Genitourinary: Speculum/Bimanual Exam: no vaginal lesions, no vaginal bleeding and uterus nontender OB Exam Abdomen: + vertex Manual OB Exam: + cervical dilation 2 cm, + cervical effacement 70%, + station -2 and + amniotic fluid (No leaking evident) OB Exam Monitor Tracing: + external FHT monitor used, + external uterine monitor used and + category I Lymphatic: no cervical or axillary lymphadenopathy [facility] & [facility] ([facility]) Vital Signs (Past 12 Hours) Vital Signs Temp Pulse Resp BP 04/09/21 16:03 107 H 127/75 04/09/21 16:01 98.8 F 107 H 18 127/75 Code Status & VTE Plan VTE Prophylaxis Plan VTE Prophylaxis will be ordered: Yes Coding Level of Care Code None Diagnoses Gastroenteritis K52.9 contractions O47.00
[2021-04-09] MEDS ORDERED: D5W AND LACTATED RINGERS 1,000 ML IV SCH (16:45)
[2021-04-09] MEDS ORDERED: LACTATED RINGER'S 1,000 ML IV PRN (17:00)
[2021-04-09 17:17] LABS: Basophils # (auto) 0.01 K/uL (0-0.2); Basophils % (auto) 0.1 %; Eosinophils # (auto) 0.17 K/uL (0-0.5); Eosinophils % (auto) 1.9 %; Hematocrit (blood only) 28.5 % (37-47); Hemoglobin 9.4 g/dL (12.0-16.0); Immature Granulocytes # (auto) 0.02 K/uL (0.00-0.02); Immature Granulocytes % (auto) 0.2 %; Lymphocytes # (auto) 1.61 K/uL (1.2-3.4); Lymphocytes % (auto) 18.3 %; Mean Corpuscular Hemoglobin 27.9 pg (25-34); Mean Corpuscular Volume 84.6 fL (80-100); Mean Platelet Volume 11.6 fL (7.4-10.4); Monocytes # (auto) 0.58 K/uL (0.11-0.59); Monocytes % (auto) 6.6 %; Neutrophils # (auto) 6.42 K/uL (1.4-6.5); Neutrophils % (auto) 72.9 %; Platelet Count 176 K/uL (130-400); RDW Coefficient of Variation 12.9 % (11.5-14.5); RDW Standard Deviation 39.6 fL (36.4-46.3); Red Blood Count 3.37 M/uL (4.2-5.4); White Blood Count 8.81 K/uL (4.8-10.8)
[2021-04-09 17:18] LABS: Appearance Urine Cloudy (Clear); Bacteria Urine Automated 1+ (Negative); Bilirubin Urine Negative (Negative); Blood Urine Negative (Negative); Color Urine Dark Yellow; Epithelial Cell Urine Auto >30 /lpf (0-5); Glucose Urine UA Negative (Negative); Ketones Urine 1+ (Negative); Leukocyte Esterase Urine Negative (Negative); Nitrite Urine Negative (Negative); Protein Urine Negative (Negative); Specific Gravity Urine 1.026 (1.000-1.030); Urobilinogen Urine Negative (Negative); pH Urine 5.5 (4.5-7.5)
[2021-04-09 17:43] LABS: BUN Creatinine Ratio 18.5 (10-20); Blood Urea Nitrogen 7 mg/dl (7-18); Calcium 8.6 mg/dl (8.5-10.1); Carbon Dioxide 22 mmol/L (21-32); Chloride 106 mmol/L (98-107); Creatinine Clr Calc Pharmacy 192.5 ml/min; Est GFR (African American) > 150.0 ml/min; Est GFR (Non-African American) 138.7 ml/min; Glucose 151 mg/dl (70-99); Potassium 3.2 mmol/L (3.5-5.1); Sodium 136 mmol/L (136-145)
[2021-04-09] MEDS ORDERED: POTASSIUM CHLORIDE CRTAB 20 MEQ TABCR PO STA (17:47)
--- NOTE | 2021-04-09 17:59 | Obstetrical Progress Note ---
Date of Service April 09, 2021 Assessment & Plan (1) Gastroenteritis: Plan: Mild hypokalemia, for which K-clor tablet is ordered. No other significant lab aberrations, no leukocytosis, COVID neg, urine appears contaminated not infected. Symptoms greatly improved after 1L IVF. Cervix unchanged, therefore no labor; likely cramping was 2/2 dehydration and cervix is multiparous. status reassuring. Discussed using OTC methods such as immodium if needed for ongoing diarrhea, and suggested a sip Q10min of a lnkb-tivilfkb-imyd-water mix to maintain hydration and electrolytes at home. Admission and Anticipated Discharge Date Admission Date: April 09, 2021 Subjective Feels less crampy. Physical Exam Genitourinary: Cervix unchanged from prior exam /-2, still very posterior, likely just multiparous FHT Cat 1 [place] quiet Almost done with 1L of IV fluid Results & Data ([facility]) Vital Signs (Past 12 Hours) Vital Signs Temp Pulse Resp BP 04/09/21 16:03 107 H 127/75 04/09/21 16:01 98.8 F 107 H 18 127/75 PG Care Time/CCT Total # of Minutes Spent Total Time Spent with Patient: Total time spent is greater than 50% in coordination of care (as documented) at patient's floor/unit and/or counseling patient: Coding Level of Care Code None Diagnoses Gastroenteritis K52.9
--- NOTE | 2021-04-11 07:34 | Discharge Summary ---
Date of Service April 11, 2021 Admission HPI Per Admitting Provider 35yo with c/o 6 days of n/v/d and now low back ache with "constant" cramping, presents to ER and is admitted to L&D due to at 32wk GA. Good FM, no LOF, no VB. Hospital Course (1) Gastroenteritis: Mild hypokalemia, for which K-clor tablet is ordered. No other significant lab aberrations, no leukocytosis, COVID neg, urine appears contaminated not infected. Symptoms greatly improved after 1L IVF. Cervix unchanged, therefore no labor; likely cramping was 2/2 dehydration and cervix is multiparous. status reassuring. Discussed using OTC methods such as immodium if needed for ongoing diarrhea, and suggested a sip Q10min of a posc-dirymaqk-izwc-water mix to maintain hydration and electrolytes at home. Coding Level of Care Code None Diagnoses Gastroenteritis K52.9
== END 2021-04-09 18:40 | disposition home or self-care (01) ==
LOC: 4S1 15:52 → OPB 15:52 → 4S1 15:54

== ENCOUNTER 2021-05-05 08:27 | Inpatient (IN) ==
[2021-05-05] MEDS ORDERED: OXYTOCIN 30 UNITS/500 ML BAG IV PRN ×3 (09:06→14:29)
[2021-05-05] MEDS ORDERED: LACTATED RINGER'S 1,000 ML IV PRN (09:06)
[2021-05-05] MEDS ORDERED: PENICILLIN G POTASSIUM 6 MU in DEXTROSE 5% 250 ML IV STA (09:30)
[2021-05-05 10:09] LABS: Hematocrit (blood only) 27.9 % (37-47); Mean Corpuscular Hemoglobin 25.5 pg (25-34); Mean Corpuscular Hgb Conc 32.3 g/dL (32-36); Mean Platelet Volume 11.2 fL (7.4-10.4); Platelet Count 186 K/uL (130-400); RDW Coefficient of Variation 14.5 % (11.5-14.5); RDW Standard Deviation 41.1 fL (36.4-46.3); Red Blood Count 3.53 M/uL (4.2-5.4); White Blood Count 12.83 K/uL (4.8-10.8)
--- NOTE | 2021-05-05 10:25 | Labor Progress Brief Note ---
Date of Service May 05, 2021 Subjective 35yo @ 35w5d Patient with SROM at 0530 this morning, no significant contractions but lots of pelvic discomfort as is her baseline, and she is hoping contractions will increase on their own if possible rather than IOL. Good FM, no VB. GBS unk. GDM A1, smoker, AMA, neurofibromatosis, PAUL/OCD. Review of Systems All systems reviewed & are unremarkable except as noted in HPI & below Assessment & Plan (1) PROM (premature rupture of membranes): Plan: PROM, , with 4cm dilation but no active contraction pattern. Recent visits to L&D and c/o cramps, diarrhea, etc; I suspect she has had some dilation occurring, and the exposed membranes have now ruptured without active labor. Patient wishes a short trial of expectant management. She and FOB were counseled about the bacterial seal around the baby being open now, and time to should be minimized. She accepts re-exam in 1 hour and if no change at that point states she will be OK to begin induction/augmentation with pitocin. PCN now for GBS unknown and . Nursery staff was already notified of this patient's admission and GA to pass on to the peds dairy nutritionist, Dr. Gomez. Admission and Anticipated Discharge Date Admission Date: May 05, 2021 Physical Exam Constitutional: WD/WN, vitals as above Eyes: PERRL, conjunctivae normal, anicteric sclerae ENMT: external ear and nose normal, oropharynx normal Neck: supple Respiratory: normal respiratory effort and able to speak in complete sentences; no respiratory distress Cardiovascular: Rate/Rhythm: regular rate and regular rhythm Gastrointestinal (Abdomen): Gravid / AGA, nontender Musculoskeletal: no cyanosis or clubbing, extremities motor strength 5/5 Skin: no rashes, warm and dry Psychiatric: A+Ox3, euthymic affect Genitourinary: Speculum/Bimanual Exam: no vaginal lesions, no vaginal bleeding and uterus nontender OB Exam Abdomen: + vertex and + estimated weight (7) Manual OB Exam: + cervical dilation 4 cm, + cervical effacement 90%, + station -2 and + amniotic fluid clear OB Exam Monitor Tracing: + external FHT monitor used, + external uterine monitor used (irritable with no pattern) and + category I Results & Data ([facility]) Vital Signs (Past 12 Hours) Vital Signs Temp Pulse Resp BP 05/05/21 08:49 98.2 F 113 H 20 136/84 Coding Level of Care Code None Diagnoses PROM (premature rupture of membranes) O42.90
[2021-05-05] MEDS ORDERED: PENICILLIN G POTASSIUM 3 MU in DEXTROSE 5% 100 ML IV PRN (12:06)
[2021-05-05] MEDS ORDERED: ePHEDrine sulfate 50 MG/ML AMP ONE (13:39)
[2021-05-05] MEDS ORDERED: BUPIVACAINE 0.25% 30 ML VIAL ONE (13:39)
[2021-05-05] MEDS ORDERED: SODIUM CHLORIDE 0.9% INJ 10 ML VIAL ONE (13:39)
[2021-05-05] MEDS ORDERED: fentaNYL citrate 100 MCG/2 ML VIAL ONE (13:40)
[2021-05-05] MEDS ORDERED: fentaNYL 2MCG/ML ROPIVACAINE 1.25MG/ML 100 ML BAG EPI ONE (13:40)
--- NOTE | 2021-05-05 13:49 | Anesthesiology Consultation ---
Date of Service May 05, 2021 Assessment & Plan (1) Encounter for pre-operative examination: Chart Review Chart Review: Acceptable Risk for Labor Epidural History Height/Weight Weight: 72.575 kg Allergies Allergy/AdvReac Type Severity Reaction Status Date / Time adhesive Allergy Intermediate RASH Verified 05/02/21 11:47 ciprofloxacin AdvReac Intermediate nausea/depr Verified 05/02/21 11:47 ession moxifloxacin AdvReac Intermediate RASH Verified 05/05/21 09:30 Medications Home Medications Medication Instructions Recorded Confirmed Last Taken acetone (urine) test (Ketone Urine #50 ea 11/17/20 05/02/21 Unknown Test) blood sugar diagnostic (OneTouch #150 ea 11/17/20 05/02/21 Unknown Verio test strips) blood-glucose meter (OneTouch #1 ea 11/17/20 05/02/21 Unknown Verio Reflect Meter) lancets 33 gauge (OneTouch Delica #150 ea 11/17/20 05/02/21 Unknown Lancets) promethazine 25 mg tablet 25 mg PO Q4H PRN #20 tab 04/06/21 05/05/21 05/04/21 08:00 metoclopramide HCl 10 mg tablet 10 mg PO Q8 PRN #30 tab 04/10/21 05/05/21 05/04/21 08:00 (Reglan) prenat.vits,saul,lty-flbq-zubiq 1 tab PO QAM 05/05/21 05/05/21 05/04/21 08:00 Active Medications Generic Name Dose Route Start Last Admin Trade Name Freq PRN Reason Stop Dose Admin Lactated Ringer's 1,000 mls @ 125 mls/hr 05/05/21 09:06 05/05/21 11:01 Lr IV 05/07/21 09:05 125 mls/hr .Q8H PRN Infusion L&D Protocol Protocol Oxytocin 30 units in 500 mls @ 5 mls/hr 05/05/21 10:25 05/05/21 13:20 Pitocin IV 05/07/21 10:24 0.3 units/hr .Q24H PRN 5 mls/hr Labor Induction/Augmentation Titration Protocol 0.3 UNITS/HR Past Medical History Medical History Anemia Anxiety Depression Depression with anxiety Fibromyalgia Generalized anxiety disorder (01/30/13) Gestational diabetes History of chicken pox Irritable bowel syndrome 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) Obsessive compulsive disorder Vapes nicotine containing substance Past Family History Family History Mother Stroke Hypertension Father Hypertension Denies family history of Ovarian cancer Breast cancer Colorectal cancer Past Surgical History Surgical History H/O laparoscopy (01/30/13) H/O wisdom tooth extraction Social History Smoking Status: Current every day smoker tobacco type: e-cigarettes Smoking cigarettes per day: 5-6 Hx Alcohol Use: No Hx Substance Use: No substance use type: does not use Physical Exam Vital Signs Last Vital Signs Temp 36.8 C 05/05/21 10:46 Pulse 113 H 05/05/21 08:49 Resp 20 05/05/21 10:46 BP 136/84 05/05/21 08:49 Testing Laboratory Results 05/05/21 10:00 05/05/21 12:49 POC Glucose 82
--- NOTE | 2021-05-05 14:16 | Delivery Summary ---
Vaginal Delivery Summary Date of Service May 05, 2021 Vaginal Delivery Summary DIAGNOSES: 1. [place] intrauterine at 35w5d gestation. 2. PPROM. 3. Group B Streptococcus unknown, treated as positive 4. Augmentation of labor. PROCEDURE: Spontaneous vaginal deliver. SURGEON: Aleyda Vasquez MD. ORE DRESSING ENGINEER: None. ESTIMATED BLOOD LOSS: 350 mL. COMPLICATIONS: None. PLACENTA: Spontaneous and intact with a 3-vessel cord that was velamentous, inserting 3-4" from the placental disk edge. DISPOSITION: Stable to labor and delivery. DESCRIPTION: I was called to the room as the patient was found to be just before an epidural was to be placed. I requested that the on-call pilot highway patrol be summoned while I prepped the patient for delivery, due to early gestational age. The patient pushed well and brought the head to in DOA position. The infant's head was allowed to deliver with contraction force and no further active pushing, with the perineum protected during this time. There was a loose nuchal cord easily reduced at the perineum. The left shoulder was anterior. The shoulders and body delivered without any difficulty, and the was placed on the maternal abdomen. It was vigorous and moving all extremities, and making respiratory efforts. The cord was doubly clamped by the MD and then cut by the FOB. The placenta delivered spontaneously and was noted to be intact and with a 3VC, though also a velamentous insertion, with the cord base between 3 and 4" from the placental edge. This was sent to pathology for exam. The cervix, vagina and perineum were examined and were found to have only a small 1st degree laceration. The patient was offered injection of lidocaine with repair, but she declined in favor of allowing the area to heal unaided. The fundus was firm and lochia minimal immediately after delivery. [facility] Vaginal Delivery Charge Vaginal Delivery Codes: 64912 global code for the antepartum, delivery, and post-
[2021-05-05] MEDS ORDERED: DIPHTHERIA/TETANUS/PERTUSSIS 0.5 ML SYR/VIAL IM ONE (14:29)
[2021-05-05] MEDS ORDERED: HYDROCORTISONE ACETATE 25 MG SUPP PR PRN (14:29)
[2021-05-05] MEDS ORDERED: BENZOCAINE 20% AER SPR 82.5 GM CAN EXT PRN (14:29)
[2021-05-05] MEDS ORDERED: SUPERCREAM 0.870% 15 GM JAR EXT PRN (14:29)
[2021-05-05] MEDS: IBUPROFEN 600 MG TAB PO PRN ×2 (15:44→20:30)
[2021-05-05] MEDS: oxyCODONE/ACETAMINOPHEN 5mg/325mg TAB PO PRN ×2 (17:05→22:42)
[2021-05-05] MEDS: DOCUSATE SODIUM 100 MG CAP PO SCH (20:31)
[2021-05-06] MEDS: IBUPROFEN 600 MG TAB PO PRN ×5 (01:25→22:37)
[2021-05-06 07:08] LABS: Hematocrit (blood only) 25.8 % (37-47); Hemoglobin 8.2 g/dL (12.0-16.0); Mean Corpuscular Hemoglobin 25.2 pg (25-34); Mean Corpuscular Hgb Conc 31.8 g/dL (32-36); Mean Corpuscular Volume 79.4 fL (80-100); Mean Platelet Volume 11.5 fL (7.4-10.4); Platelet Count 172 K/uL (130-400); RDW Coefficient of Variation 14.3 % (11.5-14.5); RDW Standard Deviation 41.1 fL (36.4-46.3); Red Blood Count 3.25 M/uL (4.2-5.4); White Blood Count 10.73 K/uL (4.8-10.8)
--- NOTE | 2021-05-06 08:15 | Obstetrical Progress Note ---
Date of Service May 06, 2021 Assessment & Plan (1) PROM (premature rupture of membranes): PPD#1 from 35w5d PPROM. Recovering well. Choosing to bottle feed, baby doing well per nursery. Routine care today, plan d/c tomorrow. Subjective Ambulation: ambulating normally Voiding: no voiding problems Passing Gas:: Yes Diet Tolerance:: regular diet Lochia:: Small Feeding Type:: bottle feeding Current Pain Level(1-10): 0 Has had BM already. Bed in her exam room was crisply made (at first I was concerned she had left the hospital), and patient was found in nursery visiting her baby, so she was seen and questioned there this morning. Exam was limited by her positioning in rocking chair and being fully dressed in street clothing. Physical Exam Constitutional WD/WN, vitals as above Eyes PERRL, conjunctivae normal, anicteric sclerae ENMT external ear and nose normal, oropharynx normal Neck trachea midline, no thyromegaly Respiratory normal respiratory effort and able to speak in complete sentences; no respiratory distress, no labored breathing and does not use accessory muscles Cardiovascular Rate/Rhythm: regular rate and regular rhythm Extremities: no calf tenderness (patient flexing and extending toes to operate rocking chair w/o discomfort ) and no pedal edema Musculoskeletal no cyanosis or clubbing, extremities motor strength 5/5 Skin no rashes, warm and dry Psychiatric A+Ox3, euthymic affect Genitourinary Speculum/Bimanual Exam: uterus nontender OB Exam Abdomen: + fundal height (appropriate per airframe technician; not rechecked at this time) Results & Data ([facility]) Vital Signs (Past 12 Hours) Vital Signs Temp Pulse Pulse Resp BP Pulse Ox 05/06/21 07:15 98.1 F 87 18 127/88 100 05/06/21 04:35 98.2 F 81 16 127/83 98 05/05/21 23:25 97.7 F 87 17 137/93 100 Laboratory Results Laboratory Results - last 24 hr 05/05/21 05/05/21 05/05/21 09:16 09:16 10:00 WBC 12.83 H RBC 3.53 L Hgb 9.0 L Hct 27.9 L MCV 79.0 L MCH 25.5 MCHC 32.3 RDW Std Deviation 41.1 RDW Coeff of Etienne 14.5 Plt Count 186 MPV 11.2 H POC Glucose COVID-19 Eval [facility] SARS-CoV-2, RNA, NAAT NEGATIVE Blood Type Antibody Screen Screen 05/05/21 05/06/21 05/06/21 12:49 06:51 06:51 WBC 10.73 RBC 3.25 L Hgb 8.2 L Hct 25.8 L MCV 79.4 L MCH 25.2 MCHC 31.8 L RDW Std Deviation 41.1 RDW Coeff of Etienne 14.3 Plt Count 172 MPV 11.5 H POC Glucose 82 COVID-19 Eval Order SARS-CoV-2, RNA, NAAT Blood Type Pending Antibody Screen Pending Screen Pending
[2021-05-06] MEDS: PRENATAL VITAMIN 1 TAB PO SCH (08:24)
[2021-05-06] MEDS: ACETAMINOPHEN 325 MG TAB PO PRN ×2 (08:24→23:35)
[2021-05-06] MEDS: DOCUSATE SODIUM 100 MG CAP PO SCH ×2 (08:24→20:43)
[2021-05-06] MEDS ORDERED: FERROUS SULFATE 325 MG TAB PO ONE (09:26)
[2021-05-06] MEDS: oxyCODONE/ACETAMINOPHEN 5mg/325mg TAB PO PRN ×2 (11:40→16:40)
[2021-05-06] MEDS: FERROUS SULFATE 325 MG TAB PO SCH (17:02)
[2021-05-07] MEDS: IBUPROFEN 600 MG TAB PO PRN (02:14)
[2021-05-07 06:37] LABS: Hematocrit (blood only) 26.3 % (37-47); Hemoglobin 8.3 g/dL (12.0-16.0)
--- NOTE | 2021-05-07 06:45 | Obstetrical Progress Note ---
Date of Service <Maribel Rodriguez MD - Last Filed: 05/07/21 07:55> May 07, 2021 Assessment & Plan <Maribel Rodriguez MD - Last Filed: 05/07/21 07:55> (1) Intrauterine : -d/c today -pain management * currently on Tylenol 650 q6, Ibuprofen 600 q4, and Percocet q4, all PRN * consider increasing Motrin dose to 800 mg q3 PRN * otherwise continue alternating ibuprofen and tylenol as needed, with percocet for breakthrough pain -anxiety * pt has hx of anxiety but unsure if she had/has at-home regimen (did not see in her chart) * likely due to prospect of going home today without her baby * will continue to monitor (2) Edema of both feet: (3) with 33 completed weeks gestation: <Aleyda Vasquez MD - Last Filed: 05/07/21 07:22> (1) Intrauterine : (2) Edema of both feet: (3) with 33 completed weeks gestation: Subjective <Maribel Rodriguez MD - Last Filed: 05/07/21 07:55> Ely is a 35 y/o female who is now PPD #2 following spontaneous vaginal delivery for PROM at 35.5 weeks. Reports feeling groggy due to lack of sleep this morning. + abdominal cramping & 8/10 lower back pain, which her pain meds "don't touch." She denies saddle numbness. Is voiding well. Tolerating meals well and is ambulating without difficulty. + passing gas but denies bowel movements. Improvement in lochia this morning. Bottle feeding. Review of Systems Denies fever, chills, sweats Denies shortness of breath, difficulty breathing, chest pain, palpitations, chest pressure. Denies breast pain. Denies dysuria. + mild headache. Denies changes in vision Physical Exam <Maribel Rodriguez MD - Last Filed: 05/07/21 07:55> General: Alert, oriented. No acute distress. Cardiac: Regular rate and rhythm, no murmurs/rubs/gallops. Respiratory: Clear to auscultation bilaterally a/p, no wheezes/rales/rhonchi. No increased work of breathing. Symmetrical chest rise. No respiratory distress. Abdomen: Soft, nontender, nondistended. Bowel sounds present. Uterus: Uterine fundus firm, palpable 7 cm below umbilicus. Lower Extremities: Some non-pitting lower extremity edema. Mello's negative bilaterally. Results & Data ([facility]) <Maribel Rodriguez MD - Last Filed: 05/07/21 07:55> Vital Signs (Past 12 Hours) Vital Signs Temp Pulse Resp BP Pulse Ox 05/06/21 23:25 36.6 C 89 16 121/84 100 05/06/21 20:40 36.6 C 83 17 122/83 100 Supervising Physician <Maribel Rodriguez MD - Last Filed: 05/07/21 07:55> Co-Signing Physician Notes Patient seen separately from resident who was not present when I rounded. Doubtful fundus is 7 cm below but I had no opportunity to confirm as patient is ambulating in nursery at this time, stressed about being discharged when remains on IV fluids since she cannot stay in house due to care of her other kids. <Aleyda Vasquez MD - Last Filed: 05/07/21 07:22> Co-Signing Physician Notes Patient seen separately from resident who was not present when I rounded. Doubtful fundus is 7cm below but I had no opportunity to confirm as patient is ambulating in nursery at this time, stressed about being discharged when remains on IV fluids since she cannot stay in house due to care of her other k ids. <Aleyda Vasquez MD - Last Filed: 05/07/21 07:22> Resident Involvement: Resident Care Provided Care Provided: OB Delivery
[2021-05-07] MEDS: FERROUS SULFATE 325 MG TAB PO SCH (08:02)
[2021-05-07] MEDS: DOCUSATE SODIUM 100 MG CAP PO SCH (08:02)
[2021-05-07] MEDS: PRENATAL VITAMIN 1 TAB PO SCH (08:02)
[2021-05-07] MEDS: oxyCODONE/ACETAMINOPHEN 5mg/325mg TAB PO PRN (08:02)
--- NOTE | 2021-05-15 15:12 | Coding Query ---
PATHOLOGY To promote full compliance with coding requirements relating to patient care, physician participation is requested in all cases of airconditioning drafting officer uncertainty. Please assist us with the question(s) below: Please review the Pathology report and please document any relevant diagnosis(es) below: Diagnosis(es): Chorioamnionitis Thank you Isabella SNEED
== END 2021-05-07 10:15 | disposition home or self-care (01) | DRG 805 ==
LOC: LAB 08:27 → 4S1 08:28 → 4S2 17:23

== ENCOUNTER 2023-08-04 15:21 | Observation (INO) ==
--- NOTE | 2023-08-04 15:47 | ED Triage Note ---
Date of Service August 04, 2023 Provider in Triage Author: Makayla Montalvo History of Present Illness This patient was briefly evaluated while in triage. An abbreviated physical exam was performed. This patient is a 38-year-old Female who presents to the ED for evaluation of RUQ abdominal pain. She states that she recently had a HIDA scan done and was called by her PCP and was told to go to the ER for possible acute cholecystitis. Has been having pain since May. History of stones in her gallbladder. Four days ago she had a fever, but none since. Has been having nausea and vomiting as well. She had 2-3 small square cream filled donuts and nutri-grain bar as well as a small amount of coffee and soda from 2:30-3:15 today. Physical Exam GENERAL: Non-toxic and in no acute distress. HEENT: Pupils equal. No obvious scleral icterus. HEART: Regular rate and rhythm. LUNGS: Clear to auscultation. No accessory muscle use. ABDOMEN: Soft, tender to palpation in the right upper quadrant and epigastric area. NEURO: Alert and oriented. No obvious neurological deficits on quick neuro exam. Initial orders for labs and / or imaging were placed and patient was placed in the waiting area until a bed is available. Please see further documentation for the full ED course. MDM / Impression Impression Impression: Acute cholecystitis
[2023-08-04] MEDS ORDERED: PIPERACILLIN/TAZOBACTAM 4.5 GM/100 ML BAG IV ONE (15:50)
[2023-08-04] MEDS ORDERED: ONDANSETRON INJ 2 MG/ML 2 ML VIAL IV STA (15:50)
[2023-08-04] MEDS ORDERED: SODIUM CHLORIDE 0.9% 1,000 ML IV STA (15:50)
[2023-08-04] MEDS ORDERED: ACETAMINOPHEN 1,000 MG/100 ML VIAL IV STA (15:50)
--- NOTE | 2023-08-04 16:48 | Emergency Department Note ---
ED Provider Note History of Present Illness Chief Complaint: Referred by Doctor Stated Complaint: ABD PAIN Time Seen by Provider: 08/04/23 15:51 Source: patient Mode of arrival: ambulatory Limitations: no limitations This patient is a 38-year-old female who presents to the emergency department for evaluation of cholecystitis. Patient reports that she has been having issues with right upper quadrant abdominal pain for about 2 months. She has been following up with her primary care provider about this. They ordered a HIDA scan which was done today. She was called afterward and told that she needed to come here due to cholecystitis. She reports that after having the HIDA scan done, her pain worsened. She denies any vomiting or fevers. Home Medications Medication Instructions Recorded Confirmed Type naproxen 250 mg tablet 250 mg PO QPM PRN Other 06/29/21 08/04/23 History omeprazole 20 mg tablet,delayed 40 mg PO QAM 06/29/21 08/04/23 History release buspirone 5 mg tablet 20 mg PO BID 12/17/22 08/04/23 History lorazepam 1 mg tablet 1 mg PO DAILY PRN Panic Attack(S) 12/17/22 08/04/23 History multivitamin 1 tab PO DAILY 12/17/22 08/04/23 History tramadol 50 mg tablet 50 mg PO DAILY PRN Pain 12/17/22 08/04/23 History amitriptyline 25 mg tablet 25 mg PO HS 07/30/23 08/04/23 History cholecalciferol (vitamin D3) 125 125 mcg PO DAILY 07/30/23 08/04/23 History mcg (5,000 unit) capsule gabapentin 300 mg capsule 300 mg PO BID 07/30/23 08/04/23 History hyoscyamine sulfate 0.125 mg 0.125 mg PO QID PRN Other 07/30/23 08/04/23 History disintegrating tablet polyethylene glycol 3350 17 17 g PO DAILY 07/30/23 08/04/23 History gram/dose oral powder (Miralax) Adderall XR 5 mg PO QAM 08/04/23 08/04/23 History bupropion HCl 150 mg 24 hr tablet, 150 mg PO DAILY 08/04/23 08/04/23 History extended release bupropion HCl 300 mg 24 hr tablet, 300 mg PO DAILY 01/08/24 01/08/24 History extended release desvenlafaxine succinate 25 mg 25 mg PO DAILY 08/04/23 08/04/23 History tablet,extended release 24 hr diphenhydramine 25 1 tab PO HS PRN Sleep 08/04/23 08/04/23 History mg-acetaminophen 500 mg tablet (Tylenol PM Extra Strength) Allergies Allergy/AdvReac Type Severity Reaction Status Date / Time adhesive Allergy Intermediate RASH Verified 01/02/23 14:31 ciprofloxacin AdvReac Intermediate nausea/depr Verified 01/02/23 14:31 ession moxifloxacin AdvReac Intermediate RASH Verified 01/02/23 14:31 Past Med/Surg History Medical History Vitamin D deficiency Hyperparathyroidism, secondary Difficulty swallowing Thyroid nodule Osteoarthritis Migraine Encounter for pre-operative examination Anemia hx PROM (premature rupture of membranes) Vapes nicotine containing substance Depression with anxiety Irritable bowel syndrome Obsessive compulsive disorder 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) Anxiety Fibromyalgia Generalized anxiety disorder (01/30/13) Depression Surgical History Hx of colonoscopy History of esophagogastroduodenoscopy (EGD) History of tooth extraction H/O wisdom tooth extraction H/O laparoscopy (01/30/13) Family History Mother Hypertension Stroke Family history of reaction to anesthesia had breathing issues when she woke up after back surgery Father Hypertension Denies family history of Ovarian cancer Breast cancer Colorectal cancer Social History Smoking Status: Current every day smoker Tobacco Type: E-cigarettes / Vaping Cigarettes Per Day: vaps daily; Second Hand Exposure: No; Do You Dip or Chew Tobacco: No; Hx Alcohol Use: Yes (rarely) Hx Substance Use: No Preferred Language: Swedish Communication Ability: Effective 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 Required: No Beliefs That Will Affect Care: None marital status: marital status details: Bashir Zuniga (50) [phone] Current Living Situation: Spouse and Family Current Living Situation Comment: lives with spouse, 2 children, and a cat current occupational status: employed 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 Feels Safe at Home: Yes Assistive Devices: Contacts and Glasses Physical Exam Vital Signs Vital Signs - 24 hr 08/04/23 15:46 08/04/23 17:21 08/04/23 17:22 Temperature 36.8 C Temperature Source Temporal Artery Scan Pulse Rate 109 H 92 H Pulse Rate [Left Finger] 91 H Respiratory Rate 20 18 18 Respiratory Effort / Characteristics Non-Labored Spontaneous Non-Labored Spontaneous Respiratory Depth Normal Normal Respiratory Pattern Regular Blood Pressure 144/93 H Blood Pressure [Left Arm] 110/82 Blood Pressure Mean 110 Blood Pressure Mean [Left Arm] 91 Blood Pressure Position [Left Arm] Semi-fowlers Pulse Oximetry 96 99 99 Oxygen Delivery Method Room Air Room Air Room Air Sepsis Recent Fever Within 48 Hours No Sepsis New/Unexplained Change in Mental Status No Sepsis Action Taken by Nursing No Action Required VITALS: Vitals are noted on the nurse's note and reviewed by myself. GENERAL: This is a 38-year-old female, in no acute distress, well-developed well-nourished. SKIN: The skin was without rashes. HEART: Regular rate and rhythm without murmurs gallops or rubs. LUNGS: Clear to auscultation bilaterally without wheezes, rales or rhonchi. No retractions or accessory muscle use. ABDOMEN: Positive bowel sounds x 4. Tenderness in the right upper quadrant. Positive Teran's sign. NEURO: Patient was alert and oriented to person place and time. Course Administered Medications Discontinued Medications Sodium Chloride (Nss) 1,000 mls @ 999 mls/hr IV .Q1H1M STA Stop: 08/04/23 16:50 Last Admin: 08/04/23 17:14 Dose: 999 mls/hr Documented By: FERMIN Acetaminophen (Ofirmev) 1,000 mg in 100 mls @ 400 mls/hr IV NOW STA Stop: 08/04/23 16:04 Last Infusion: 08/04/23 18:02 Dose: Infused Documented By: Admin: 08/04/23 17:14 Dose: 400 mls/hr Documented By: FERMIN Piperacillin Sod/Tazobactam Sod (Zosyn) 4.5 gm in 100 mls @ 200 mls/hr IV NOW ONE Stop: 08/04/23 16:19 Last Admin: 08/04/23 17:58 Dose: 200 mls/hr Documented By: FERMIN Ondansetron HCl (Ondansetron Inj 2 Mg/Ml 2 Ml Vial) 4 mg IV NOW STA Stop: 08/04/23 15:51 Last Admin: 08/04/23 17:14 Dose: 4 mg Documented By: FERMIN Medical Decision Making Differential Diagnosis Differential diagnosis includes cholecystitis, choledocholithiasis, cholangitis, among others. Home Medications was personally reviewed by me Laboratory Data Attestation: I reviewed the patient's lab results. 08/04/23 17:00 08/04/23 17:00 Lab Results 08/04/23 08/04/23 08/04/23 Range/Units 16:46 17:00 17:34 WBC 6.97 (4.8-10.8) K/ul RBC 4.63 (4.20-5.40) M/uL Hgb 12.5 (12.0-16.0) g/dl Hct 36.6 L (37.0-47.0) % MCV 79.0 L (80.0-100.0) fL MCH 27.0 (25.0-34.0) pg MCHC 34.2 (32.0-36.0) g/dL RDW Std Deviation 38.8 (36.4-46.3) fL RDW Coeff of Etienne 13.7 (11.5-14.5) % Plt Count 294 (130-400) K/uL MPV 11.7 (9.4-12.4) fL Immature Gran % (Auto) 0.3 % Neut % (Auto) 56.3 % Lymph % (Auto) 31.1 % [place] % (Auto) 7.0 % Eos % (Auto) 4.6 % Baso % (Auto) 0.7 % Neut # (Auto) 3.92 (1.40-6.50) K/uL Lymph # (Auto) 2.17 (1.20-3.40) K/uL [place] # (Auto) 0.49 (0.11-0.59) K/uL Eos # (Auto) 0.32 (0.00-0.50) K/uL Baso # (Auto) 0.05 (0.00-0.20) K/uL Immature Gran # (Auto) 0.02 (0.01-0.20) K/uL PT 10.4 (9.0-12.0) Seconds INR 0.9 (0.9-1.1) APTT 29 (21-31) Seconds PTT Ratio 1.0 Sodium 138 (136-145) mmol/L Potassium 3.5 (3.5-5.1) mmol/L Chloride 104 (98-107) mmol/L Carbon Dioxide 26 (21-32) mmol/L Anion Gap 8 (3-11) BUN 9 (6-23) mg/dl Creatinine 0.66 (0.6-1.2) mg/dl Est Cr Clr Drug Dosing 98.8 ml/min Est GFR ( Amer) 129.0 ml/min Est GFR (Non-Af Amer) 111.3 ml/min BUN/Creatinine Ratio 13.6 (10-20) Glucose 107 H (70-99(Fasting)) mg/dl Lactate 1.3 (0.4-2.0) mmol/L Calcium 9.8 (8.6-10.3) mg/dl Total Bilirubin 0.5 (0.2-1.0) mg/dl AST 18 (13-39) U/L ALT 74 H (7-52) U/L Alkaline Phosphatase 130 H (34-104) U/L Total Protein 7.2 (6.0-8.3) gm/dl Albumin 4.3 (3.4-5.0) gm/dl Globulin 2.9 (2.5-4.0) gm/dl Albumin/Globulin Ratio 1.5 (0.9-2) Lipase 25 (11-82) U/L HCG, Qual Negative (Negative) Urine Color Yellow Urine Appearance Clear (Clear) Urine pH 7.5 (4.5-7.5) Ur Specific [place] 1.008 (1.000-1.030) Urine Protein Negative (Negative) Urine Glucose (UA) Negative (Negative) Urine Ketones Negative (Negative) Urine Blood Negative (Negative) Urine Nitrite Negative (Negative) Urine Bilirubin Negative (Negative) Urine Urobilinogen Negative (Negative) Ur Leukocyte Esterase Negative (Negative) Imaging Data Attestation: I personally reviewed and interpreted this imaging study as follows: Radiologist's Impression: Gallbladder Ultrasound 08/04/23 17:57 ULTRASOUND RIGHT UPPER QUADRANT ABDOMEN CLINICAL HISTORY: Acute cholecystitis. COMPARISON STUDY: Abdominal CT dated 05/26/2023. Nuclear hepatobiliary scan dated 08/04/2023. TECHNIQUE: Real-time, grayscale, and color flow sonography of the right upper quadrant of the abdomen was performed. Images are reviewed in the transverse and longitudinal planes. FINDINGS: Liver: The liver is normal in size and echotexture. There is no intrahepatic biliary ductal dilatation. The main portal vein is patent. Gallbladder: The gallbladder does not appear significantly distended and is filled with shadowing gallstones. There is no gallbladder wall thickening or pericholecystic fluid. A sonographic Teran's sign is reportedly absent. The common bile duct measures up to 0.7 cm in diameter. Pancreas: Visualized portions of the pancreatic head and body are normal in appearance. The splenic vein is patent. Right kidney: Survey images of the right kidney demonstrate normal size and echotexture. There is no hydronephrosis. Ascites: None. IMPRESSION: 1. The gallbladder is filled with shadowing gallstones. There is no clear sonographic evidence of acute cholecystitis. The scintigraphic findings remain concerning. Clinical and laboratory correlation will be essential. 2. There is mild dilatation of the common bile duct which measures up to 7 mm. No intrahepatic biliary ductal dilatation is seen. ACT 112: Negative or not required by law. Electronically signed by: Donaldo Echeverria M.D. 08/04/2023 6:56 PM MDM Narrative This patient is a 38-year-old female who presents to the emergency department for evaluation of an abnormal HIDA scan. Patient has been having issues with the right upper quadrant pain for a few months. She had a HIDA scan performed as an outpatient which showed acute cholecystitis. Her LFTs are slightly elevated here, with ALT of 74 and alkaline phosphatase of 130. Bilirubin and AST are within normal limits. There is no leukocytosis. She was ordered Zosyn in triage and was given this. I spoke with general surgeon on-call, Dr. Iverson who recommended ordering an ultrasound. This was performed and does show some slight dilatation of the common bile duct. Patient was then evaluated by general surgery Fernando SIMENTAL who will admit the patient for further care. Impression Acute cholecystitis Discharge Plan Visit Data Chief Complaint: Referred by Doctor Stated Complaint: ABD PAIN ED Provider: Darron Johnson ED Midlevel Provider: Cher Arias Discharge Problem: Acute cholecystitis Discharge Instructions Interventions: ED Discharge Assessment Last Done: 08/04/23 21:09 Prescriptions Prescriptions: No Action tramadol 50 mg tablet 50 mg PO DAILY PRN (Reason: Pain) lorazepam 1 mg tablet 1 mg PO DAILY PRN (Reason: Panic Attack(S)) multivitamin Tablet 1 tab PO DAILY polyethylene glycol 3350 [Miralax] 17 gram/dose powder 17 g PO DAILY hyoscyamine sulfate 0.125 mg tablet,disintegrating 0.125 mg PO QID PRN (Reason: Other) gabapentin 300 mg capsule 300 mg PO BID cholecalciferol (vitamin D3) 125 mcg (5,000 unit) capsule 125 mcg PO DAILY amitriptyline 25 mg tablet 25 mg PO HS naproxen 250 mg Tablet 250 mg PO QPM PRN (Reason: Other) omeprazole 20 mg Tablet,Delayed Release (Dr/Ec) 40 mg PO QAM buspirone 5 mg tablet 20 mg PO BID Adderall XR 5 mg PO QAM diphenhydramine-acetaminophen [Tylenol PM Extra Strength] 25-500 mg Tablet 1 tab PO HS PRN (Reason: Sleep) bupropion HCl 300 mg tablet extended release 24 hr 300 mg PO DAILY bupropion HCl 150 mg tablet extended release 24 hr 150 mg PO DAILY desvenlafaxine succinate 25 mg tablet extended release 24 hr 25 mg PO DAILY
[2023-08-04 17:07] LABS: Appearance Urine Clear (Clear); Bilirubin Urine Negative (Negative); Blood Urine Negative (Negative); Color Urine Yellow; Glucose Urine UA Negative (Negative); Ketones Urine Negative (Negative); Leukocyte Esterase Urine Negative (Negative); Nitrite Urine Negative (Negative); Protein Urine Negative (Negative); Specific Gravity Urine 1.008 (1.000-1.030); Urobilinogen Urine Negative (Negative); pH Urine 7.5 (4.5-7.5)
[2023-08-04 17:38] LABS: Basophils # (auto) 0.05 K/uL (0.00-0.20); Basophils % (auto) 0.7 %; Eosinophils # (auto) 0.32 K/uL (0.00-0.50); Eosinophils % (auto) 4.6 %; Hematocrit (blood only) 36.6 % (37.0-47.0); Hemoglobin 12.5 g/dl (12.0-16.0); Immature Granulocytes # (auto) 0.02 K/uL (0.01-0.20); Immature Granulocytes % (auto) 0.3 %; Lymphocytes # (auto) 2.17 K/uL (1.20-3.40); Lymphocytes % (auto) 31.1 %; Mean Corpuscular Hgb Conc 34.2 g/dL (32.0-36.0); Mean Platelet Volume 11.7 fL (9.4-12.4); Monocytes # (auto) 0.49 K/uL (0.11-0.59); Neutrophils # (auto) 3.92 K/uL (1.40-6.50); Neutrophils % (auto) 56.3 %; Platelet Count 294 K/uL (130-400); RDW Coefficient of Variation 13.7 % (11.5-14.5); RDW Standard Deviation 38.8 fL (36.4-46.3); Red Blood Count 4.63 M/uL (4.20-5.40); White Blood Count 6.97 K/ul (4.8-10.8)
[2023-08-04 17:48] LABS: Pregnancy Test, Serum Negative (Negative)
[2023-08-04 17:51] LABS: Albumin Globulin Ratio 1.5 (0.9-2); Albumin Level 4.3 gm/dl (3.4-5.0); BUN Creatinine Ratio 13.6 (10-20); Bilirubin,Total 0.5 mg/dl (0.2-1.0); Calcium 9.8 mg/dl (8.6-10.3); Creatinine Clr Calc Pharmacy 98.8 ml/min; Est GFR (Non-African American) 111.3 ml/min; Globulin 2.9 gm/dl (2.5-4.0); Potassium 3.5 mmol/L (3.5-5.1); Total Protein 7.2 gm/dl (6.0-8.3)
[2023-08-04 18:13] LABS: INR 0.9 (0.9-1.1); Partial Thromboplastin Time 29 Seconds (21-31); Prothrombin Time 10.4 Seconds (9.0-12.0)
--- NOTE | 2023-08-04 18:57 | Ultrasound Report ---
ULTRASOUND RIGHT UPPER QUADRANT ABDOMEN CLINICAL HISTORY: Acute cholecystitis. COMPARISON STUDY: Abdominal CT dated 05/26/2023. Nuclear hepatobiliary scan dated 08/04/2023. TECHNIQUE: Real-time, grayscale, and color flow sonography of the right upper quadrant of the abdomen was performed. Images are reviewed in the transverse and longitudinal planes. FINDINGS: Liver: The liver is normal in size and echotexture. There is no intrahepatic biliary ductal dilatatio n. The main portal vein is patent. Gallbladder: The gallbladder does not appear significantly distended and is filled with shadowing gal lstones. There is no gallbladder wall thickening or pericholecystic fluid. A sonographic Teran's sig n is reportedly absent. The common bile duct measures up to 0.7 cm in diameter. Pancreas: Visualized portions of the pancreatic head and body are normal in appearance. The splenic v ein is patent. Right kidney: Survey images of the right kidney demonstrate normal size and echotexture. There is no hydronephrosis. Ascites: None. IMPRESSION: 1. The gallbladder is filled with shadowing gallstones. There is no clear sonographic evidence of acu te cholecystitis. The scintigraphic findings remain concerning. Clinical and laboratory correlation w ill be essential. 2. There is mild dilatation of the common bile duct which measures up to 7 mm. No intrahepatic biliar y ductal dilatation is seen. ACT 112: Negative or not required by law. Electronically signed by: Donaldo Echeverria M.D. 08/04/2023 6:56 PM
[2023-08-04] MEDS ORDERED: ACETAMINOPHEN 1,000 MG/100 ML VIAL IV PRN (20:08)
--- NOTE | 2023-08-04 20:26 | History & Physical Report ---
Date of Service August 04, 2023 Assessment & Plan (1) Cholelithiasis: Plan: Due to the concern for cholecystitis on HIDA scan the patient will be admitted to the hospital on the surgical service proceeding as follows: Provide analgesics Provide antiemetics Continue antibioticsthe patient has had Zosyn initiated in the emergency department Provide IV fluid for hydration Implement n.p.o. status We are tentatively planning on cholecystectomy with Dr. Iverson on 08/05/2023 As the patient does have a slight elevation of some of her LFTs and dilatation noted of the common bile duct, this raises the concern for potential choledocholithiasis in the setting of cholelithiasis. Will therefore get an MRCP as well as follow serial laboratories. I discussed with the patient that if her MRCP is positive for choledocholithiasis we will need to obtain a ga stroenterology consultation for the potential of obtaining an ERCP, and this may potentially delay cholecystectomy. If the MRCP is negative for choledocholithiasis and the trend of her labs does not suggest choledocholithiasis we will merely proceed with cholecystectomy. I did discuss with the patient that she may have choledocholithiasis even with a negative MRCP, and with this fact in mind Dr. Iverson will make a determination if intraoperative cholangiogram will be required and will likely be based on the trend of her laboratories. Additional recommendations be forthcoming based on her clinical course as unfolds SCDs were used for DVT prevention, no chemical means due to planned surgery She will be a level 1 full code History of Present Illness Chief Complaint: Abdominal pain Primary Care Provider: Ria Echeverria This is a 38-year-old female that has had ongoing abdominal pain since May 2023. The patient notes that the pain usually occurs after eating but often times is not precipitated by eating. She does not identify any other provocative factors. She denies any palliative factors. She does note that she has nausea without vomiting when she gets the pain. The pain is primarily confined to the right upper quadrant and to a lesser degree the epigastric area without radiation. She notes that during one of the initial episodes of pain she experienced a fever of approximately 101. The patient notes that she has contacted her primary care team regarding this pain and underwent an abdominal ultrasound on 06/26/2023. This showed the patient had gallstones without evidence of acute cholecystitis. The patient continued to have ongoing pain as described above and it took a considerable amount of time to get back in with her primary care team. She notes that she ultimately had a HIDA scan ordered and this was performed today. This study showed that there is no uptake of radiotracer by the gallbladder which is felt to be compatible with acute cholecystitis. Because of these findings her primary care team encouraged her to report to the emergency department. In the emergency department the patient did have labs performed which included a CBC were white blood cell count and platelet count were normal. Her hemoglobin was normal and her hematocrit was slightly low at 36.6. Coagulation studies were normal. Chemistry profile showed sodium and potassium along with the BUN and creatinine were normal. Lactic acid was nonelevated. The patient's total bilirubin was nonelevated and the AST was nonelevated. The ALT had a slight elevation at 74 and the alkaline phosphatase was elevated at 130. Her lipase was nonelevated. A test was negative. A urinalysis was negative for infection. Because of the slight elevation of her LFTs and her ongoing pain a repeat gallbladder ultrasound was performed. This showed the patient had cholelithiasis. There is no clear evidence of cholecystitis on the study. Patient was noted to have some dilatation of the common bile duct of approximate 7 mm but there is no intrahepatic biliary ductal dilatation. I did asked the patient on her activities of daily living the patient says she works at [employer] and has to walk considerable distances for up to 15 minutes during her day-to-day activities. With these activities the patient denies any chest pain or shortness of breath. She also adds that she has had prior abdominal surgeries in the form of an exploratory laparoscopy for endometriosis, at which time she had her fallopian tubes removed. At the time of my interview the patient was resting comfortably in bed and she was in no distress. Allergies Allergy/AdvReac Type Severity Reaction Status Date / Time adhesive Allergy Intermediate RASH Verified 01/02/23 14:31 ciprofloxacin AdvReac Intermediate nausea/depr Verified 01/02/23 14:31 ession moxifloxacin AdvReac Intermediate RASH Verified 01/02/23 14:31 Home Medications Medication Instructions Recorded Confirmed Type naproxen 250 mg tablet 250 mg PO QPM PRN Other 06/29/21 08/04/23 History omeprazole 20 mg tablet,delayed 40 mg PO QAM 06/29/21 08/04/23 History release buspirone 5 mg tablet 20 mg PO BID 12/17/22 08/04/23 History lorazepam 1 mg tablet 1 mg PO DAILY PRN Panic Attack(S) 12/17/22 08/04/23 Histor y multivitamin 1 tab PO DAILY 12/17/22 08/04/23 History tramadol 50 mg tablet 50 mg PO DAILY PRN Pain 12/17/22 08/04/23 History amitriptyline 25 mg tablet 25 mg PO HS 07/30/23 08/04/23 History cholecalciferol (vitamin D3) 125 125 mcg PO DAILY 07/30/23 08/04/23 History mcg (5,000 unit) capsule gabapentin 300 mg capsule 300 mg PO BID 07/30/23 08/04/23 History hyoscyamine sulfate 0.125 mg 0.125 mg PO QID PRN Other 07/30/23 08/04/23 History disintegrating tablet polyethylene glycol 3350 17 17 g PO DAILY 07/30/23 08/04/23 History gram/dose oral powder (Miralax) Adderall XR 5 mg PO QAM 08/04/23 08/04/23 History bupropion HCl 150 mg 24 hr tablet, 150 mg PO DAILY 08/04/23 08/04/23 History extended release bupropion HCl 300 mg 24 hr tablet, 300 mg PO DAILY 08/04/23 08/04/23 History extended release desvenlafaxine succinate 25 mg 25 mg PO DAILY 08/04/23 08/04/23 History tablet,extended release 24 hr diphenhydramine 25 1 tab PO HS PRN Sleep 08/04/23 08/04/23 History mg-acetaminophen 500 mg tablet (Tylenol PM Extra Strength) Past Med/Surg History Medical History Vitamin D deficiency Hyperparathyroidism, secondary Difficulty swallowing Thyroid nodule Osteoarthritis Migraine Encounter for pre-operative examination Anemia hx PROM (premature rupture of membranes) Vapes nicotine containing substance Depression with anxiety Irritable bowel syndrome Obsessive compulsive disorder 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) Anxiety Fibromyalgia Generalized anxiety disorder (01/30/13) Depression Surgical History Hx of colonoscopy History of esophagogastroduodenoscopy (EGD) History of tooth extraction H/O wisdom tooth extraction H/O laparoscopy (01/30/13) Family History Mother Hypertension Stroke Family history of reaction to anesthesia had breathing issues when she woke up after back surgery Father Hypertension Denies family history of Ovarian cancer Breast cancer Colorectal cancer Social History Smoking Status: Current every day smoker Tobacco Type: E-cigarettes / Vaping Cigarettes Per Day: vaps daily; Second Hand Exposure: No; Do You Dip or Chew Tobacco: No; Hx Alcohol Use: No Hx Substance Use: No Preferred Language: Portuguese Communication Ability: Effective Manager Corporate Communications Required: No Beliefs That Will Affect Care: None marital status: marital status details: Bashir Zuniga ([phone] Current Living Situation: Spouse Current Living Situation Comment: lives with spouse, 2 children, and a cat current occupational status: employed current occupation: [employer] ann Feels Safe at Home: Yes Safety Concerns: Feels Safe At This Time Assistive Devices: Contacts and Glasses Review of Systems Constitutional: + fever (Febrile episode noted in Novemb er 2022 with no recurrence); no chills Eyes: + corrective lenses Ear, Nose, Mouth, Throat: no hearing loss Respiratory: no cough and no dyspnea Cardiovascular: no chest pain Gastrointestinal: as per Subjective / HPI Genitourinary: no dysuria Musculoskeletal: no back pain Integumentary: no rash Neurologic: no localized weakness Physical Exam Constitutional: WD/WN, vitals as above Eyes: + anicteric sclerae Wears glasses ENMT: Ears: no hearing impairment and no external ear abnormality Mouth: no oropharynx abnormality Neck: trachea midline Respiratory: normal respiratory effort, lungs clear to auscultation Cardiovascular: Rate/Rhythm: regular rate and regular rhythm Gastrointestinal (Abdomen): Patient's abdomen is soft and nondistended. It is nonrigid. Bowel sounds are present. Patient did have pain with palpation greatest in the right upper quadrant and to a lesser degree the epigastric area. There is no rebound tenderness or guarding. Musculoskeletal: No calf tenderness Skin: no rashes Neurologic: moves all extremities Psychiatric: Orientation: alert and oriented x 3 Affect: + flat affect Results & Data Results & Data Vital Signs (Past 12 Hours) Vital Signs Temp Pulse Pulse Resp BP BP Pulse Ox 08/04/23 17:22 92 H 18 99 08/04/23 17:21 91 H 18 110/82 99 08/04/23 15:46 36.8 C 109 H 20 144/93 H 96 O2 Del Method 08/04/23 17:22 Room Air 08/04/23 17:21 Room Air 08/04/23 15:46 Room Air Supervising Physician Co-Signing Physician Notes pnt d/w LOLA Dias, labs and imaging reviewed, agree with above. 2 months RUQ abd pain, non filling gallbladder on HIDA today. RUQUS with stones, no obvious cholecystitis. wbc normal. MRCP w/ no choledocholithiasis. admit to our service, plan for robotic cholecystectomy tomorrow. PG Care Time/CCT Total # of Minutes Spent Total Time Spent with Patient: Total time spent is greater than 50% in coordination of care (as documented) at patient's floor/unit and/or counseling patient: Coding Level of Care Code 20200 INT INP/OBS CARE 75MIN Diagnoses Cholelithiasis K80.20
[2023-08-04] MEDS ORDERED: HYOSCYAMINE SULFATE 0.125 MG TAB PO PRN (21:52)
--- NOTE | 2023-08-04 22:11 | Magnetic Resonance Report ---
Exam(s): MRI MRCP EXAM: MR Abdomen Without Intravenous Contrast, MRCP Protocol CLINICAL HISTORY: Reason for exam: ? choledocholithiasis. TECHNIQUE: Multiplanar magnetic resonance images of the abdomen without intravenous contrast using MRCP protocol. COMPARISON: CT abdomen pelvis 05/26/2023 FINDINGS: Bile ducts: No choledocholithiasis or biliary dilatation. Gallbladder: Status post cholecystectomy. Liver: Unremarkable. Pancreas: Unremarkable. No ductal dilation. Spleen: Spleen mildly enlarged measuring 14 cm. Adrenals: Unremarkable. No mass. Kidneys and ureters: Unremarkable. No hydronephrosis. Stomach and bowel: Unremarkable. No obstruction. IMPRESSION: 1. No choledocholithiasis or biliary dilatation. 2. Mild splenomegaly. Electronically signed by: Daren Fitch MD 08/04/23 22:10 PM
[2023-08-04] MEDS: ONDANSETRON INJ 2 MG/ML 2 ML VIAL IV PRN (22:13)
[2023-08-04] MEDS: SODIUM CHLORIDE 0.9% 1,000 ML IV SCH (22:13)
[2023-08-04] MEDS: MoRPHine SULFATE 4 MG/ML 1 ML CARP\\VIAL IV PRN (22:13)
[2023-08-04] MEDS: busPIRone 5 MG TAB PO SCH (22:16)
[2023-08-04] MEDS: GABAPENTIN 300 MG CAP PO SCH (22:16)
[2023-08-04] MEDS: AMITRIPTYLINE HCL 25 MG TAB PO SCH (22:16)
[2023-08-04] MEDS: PIPERACILLIN/TAZOBACTAM 4.5 GM in DEXTROSE 5% MINI-B 100 ML IV SCH (23:13)
[2023-08-04] MEDS: [UNRECOGNIZED DRUG - OTHER] SCH (23:17)
[2023-08-05] MEDS ORDERED: COUGH DROP (SUGAR FREE) LOZ 24 LOZ/1 BOX BUCCAL STA (03:42)
[2023-08-05] MEDS ORDERED: CHLORASEPTIC (PHENOL) 1.4% SOLN 180 ML BTL MT PRN (03:48)
[2023-08-05] MEDS: MoRPHine SULFATE 4 MG/ML 1 ML CARP\\VIAL IV PRN ×3 (04:14→19:33)
[2023-08-05] MEDS: ONDANSETRON INJ 2 MG/ML 2 ML VIAL IV PRN (04:14)
[2023-08-05 06:12] LABS: Basophils # (auto) 0.06 K/uL (0.00-0.20); Basophils % (auto) 1.2 %; Eosinophils # (auto) 0.32 K/uL (0.00-0.50); Eosinophils % (auto) 6.2 %; Hematocrit (blood only) 39.4 % (37.0-47.0); Hemoglobin 12.3 g/dl (12.0-16.0); Lymphocytes # (auto) 2.07 K/uL (1.20-3.40); Mean Corpuscular Hemoglobin 25.8 pg (25.0-34.0); Mean Corpuscular Hgb Conc 31.2 g/dL (32.0-36.0); Mean Corpuscular Volume 82.6 fL (80.0-100.0); Mean Platelet Volume 11.4 fL (9.4-12.4); Monocytes # (auto) 0.41 K/uL (0.11-0.59); Monocytes % (auto) 7.9 %; Neutrophils # (auto) 2.32 K/uL (1.40-6.50); Neutrophils % (auto) 44.7 %; Platelet Count 268 K/uL (130-400); RDW Coefficient of Variation 13.7 % (11.5-14.5); Red Blood Count 4.77 M/uL (4.20-5.40); White Blood Count 5.18 K/ul (4.8-10.8)
[2023-08-05 06:23] LABS: Albumin Globulin Ratio 1.6 (0.9-2); Albumin Level 4.1 gm/dl (3.4-5.0); BUN Creatinine Ratio 12.2 (10-20); Bilirubin,Total 0.8 mg/dl (0.2-1.0); Calcium 8.8 mg/dl (8.6-10.3); Creatinine Clr Calc Pharmacy 88.1 ml/min; Est GFR (African American) 118.3 ml/min; Est GFR (Non-African American) 102.1 ml/min; Globulin 2.6 gm/dl (2.5-4.0); Potassium 3.6 mmol/L (3.5-5.1); Total Protein 6.7 gm/dl (6.0-8.3)
[2023-08-05] MEDS: [UNRECOGNIZED DRUG - OTHER] SCH ×3 (07:28→23:52)
[2023-08-05] MEDS: SODIUM CHLORIDE 0.9% 1,000 ML IV SCH ×2 (07:28→16:27)
[2023-08-05] MEDS: PIPERACILLIN/TAZOBACTAM 4.5 GM in DEXTROSE 5% MINI-B 100 ML IV SCH ×2 (07:32→16:26)
[2023-08-05] MEDS: DEXTROAMPHETAMINE/AMPHETAMINE ER 5 MG CAP PO SCH (08:05)
[2023-08-05] MEDS: busPIRone 5 MG TAB PO SCH ×2 (08:05→20:15)
[2023-08-05] MEDS: buPROPion XL 150 MG TABCR PO SCH (08:05)
[2023-08-05] MEDS: buPROPion XL 300 MG TABCR PO SCH (08:05)
[2023-08-05] MEDS: PANTOprazole 40 MG TAB PO SCH (08:06)
[2023-08-05] MEDS: GABAPENTIN 300 MG CAP PO SCH ×2 (08:06→20:15)
--- NOTE | 2023-08-05 08:09 | Electrocardiogram Report ---
Test Reason : Blood Pressure : / mmHG Vent. Rate : 093 BPM Atrial Rate : 093 BPM P-R Int : 170 ms QRS Dur : 084 ms QT Int : 342 ms P-R-T Axes : 034 045 052 degrees QTc Int : 425 ms Normal sinus rhythm Possible Old Septal infarct (cited on or before 05-JUN-2023) Abnormal ECG When compared with ECG of 05-JUN-2023 15:12, No significant change was found Confirmed by Manuel Tejada ([id number]) on 08/05/2023 8:09:43 AM Referred By: REFERRED SELF Confirmed By:Manuel Tejada
[2023-08-05] MEDS ORDERED: INDOCYANINE GREEN 25 MG VIAL INJ ONE (08:29)
--- NOTE | 2023-08-05 08:29 | Surgery Progress Note ---
Date of Service August 05, 2023 Assessment & Plan (1) Acute calculous cholecystitis: Plan: cholelithiasis with cholecystitis plan for robotic assisted laparoscopic cholecystectomy today risks discussed to include but not limited to bleeding, infection, retained stone, bile leak, open surgery, damage to surrounding structures including bile duct, need for future or more extensive surgery, failure to treat symptoms, and risks of anesthesia. potential discharge later today or tomorrow wound care instructions, activity restrictions, and return precautions given Admission and Anticipated Discharge Date Admission Date: August 04, 2023 Subjective admitted with cholelithiasis and cholecystitis, likely acute on chronic. No issues, MRCP neg Physical Exam Constitutional: WD/WN, vitals as above Respiratory: normal respiratory effort, lungs clear to auscultation Cardiovascular: RRR, no murmur, no edema Gastrointestinal (Abdomen): Percussion/Palpation: + abdomen tender (RUQ) and abdomen soft; no guarding and abdomen not rigid Results & Data Vital Signs (Past 12 Hours) Vital Signs Temp Pulse Resp BP Pulse Ox O2 Del Method 08/05/23 07:42 36.4 C L 71 16 111/76 100 Room Air 08/05/23 04:00 36.8 C 72 16 124/78 98 Room Air 08/04/23 21:50 36.4 C L 84 16 130/86 98 Room Air Laboratory Results Laboratory Results - last 24 hr 08/04/23 08/04/23 08/04/23 16:46 17:00 17:34 WBC 6.97 RBC 4.63 Hgb 12.5 Hct 36.6 L MCV 79.0 L MCH 27.0 MCHC 34.2 RDW Std Deviation 38.8 RDW Coeff of Etienne 13.7 Plt Count 294 MPV 11.7 Immature Gran % (Auto) 0.3 Neut % (Auto) 56.3 Lymph % (Auto) 31.1 [place] % (Auto) 7.0 Eos % (Auto) 4.6 Baso % (Auto) 0.7 Neut # (Auto) 3.92 Lymph # (Auto) 2.17 [place] # (Auto) 0.49 Eos # (Auto) 0.32 Baso # (Auto) 0.05 Immature Gran # (Auto) 0.02 PT 10.4 INR 0.9 APTT 29 PTT Ratio 1.0 Sodium 138 Potassium 3.5 Chloride 104 Carbon Dioxide 26 Anion Gap 8 BUN 9 Creatinine 0.66 Est Cr Clr Drug Dosing 98.8 Est GFR ( Amer) 129.0 Est GFR (Non-Af Amer) 111.3 BUN/Creatinine Ratio 13.6 Glucose 107 H Lactate 1.3 Calcium 9.8 Total Bilirubin 0.5 AST 18 ALT 74 H Alkaline Phosphatase 130 H Total Protein 7.2 Albumin 4.3 Globulin 2.9 Albumin/Globulin Ratio 1.5 Lipase 25 HCG, Qual Negative Urine Color Yellow Urine Appearance Clear Urine pH 7.5 Ur Specific [place] 1.008 Urine Protein Negative Urine Glucose (UA) Negative Urine Ketones Negative Urine Blood Negative Urine Nitrite Negative Urine Bilirubin Negative Urine Urobilinogen Negative Ur Leukocyte Esterase Negative 08/05/23 05:46 WBC 5.18 RBC 4.77 Hgb 12.3 Hct 39.4 MCV 82.6 MCH 25.8 MCHC 31.2 L RDW Std Deviation 41.0 RDW Coeff of Etienne 13.7 Plt Count 268 MPV 11.4 Immature Gran % (Auto) 0.0 Neut % (Auto) 44.7 Lymph % (Auto) 40.0 [place] % (Auto) 7.9 Eos % (Auto) 6.2 Baso % (Auto) 1.2 Neut # (Auto) 2.32 Lymph # (Auto) 2.07 [place] # (Auto) 0.41 Eos # (Auto) 0.32 Baso # (Auto) 0.06 Immature Gran # (Auto) 0.00 L PT INR APTT PTT Ratio Sodium 140 Potassium 3.6 Chloride 106 Carbon Dioxide 27 Anion Gap 7 BUN 9 Creatinine 0.74 Est Cr Clr Drug Dosing 88.1 Est GFR ( Amer) 118.3 Est GFR (Non-Af Amer) 102.1 BUN/Creatinine Ratio 12.2 Glucose 72 Lactate Calcium 8.8 Total Bilirubin 0.8 AST 21 ALT 66 H Alkaline Phosphatase 110 H Total Protein 6.7 Albumin 4.1 Globulin 2.6 Albumin/Globulin Ratio 1.6 Lipase 23 HCG, Qual Urine Color Urine Appearance Urine pH Ur Specific [place] Urine Protein Urine Glucose (UA) Urine Ketones Urine Blood Urine Nitrite Urine Bilirubin Urine Urobilinogen Ur Leukocyte Esterase PG Care Time/CCT Total # of Minutes Spent Total Time Spent with Patient: Total time spent is greater than 50% in coordination of care (as documented) at patient's floor/unit and/or counseling patient: Coding Level of Care Code 86428 SUB INP/OBS CARE MIN Diagnoses Acute calculous cholecystitis K80.00
--- NOTE | 2023-08-05 09:42 | Anesthesiology Consultation ---
Date of Service August 05, 2023 Assessment & Plan Chart Review Chart Review: Acceptable Risk for Surgery and Patient NOT seen in Pre Admission Testing Consults Requested none History Surgery Operation Date: 08/05/23 08:20 Proposed Procedures p Robotic assisted Laparoscopic Cholecystectomy Possible Cholangiogram - Krzysztof Iverson, , FACS Height/Weight Height: 5 ft 4 in Weight: 65.5 kg Allergies Allergy/AdvReac Type Severity Reaction Status Date / Time adhesive Allergy Intermediate RASH Verified 01/02/23 14:31 ciprofloxacin AdvReac Intermediate nausea/depr Verified 01/02/23 14:31 ession moxifloxacin AdvReac Intermediate RASH Verified 01/02/23 14:31 Medications Home Medications Medication Instructions Recorded Confirmed Last Taken naproxen 250 mg tablet 250 mg PO QPM PRN Other 06/29/21 08/04/23 Unknown omeprazole 20 mg tablet,delayed 40 mg PO QAM 06/29/21 08/04/23 Unknown release buspirone 5 mg tablet 20 mg PO BID 12/17/22 08/04/23 Unknown lorazepam 1 mg tablet 1 mg PO DAILY PRN Panic Attack(S) 12/17/22 08/04/23 Unknown multivitamin 1 tab PO DAILY 12/17/22 08/04/23 Unknown tramadol 50 mg tablet 50 mg PO DAILY PRN Pain 12/17/22 08/04/23 Unknown amitriptyline 25 mg tablet 25 mg PO HS 07/30/23 08/04/23 Unknown cholecalciferol (vitamin D3) 125 125 mcg PO DAILY 07/30/23 08/04/23 Unknown mcg (5,000 unit) capsule gabapentin 300 mg capsule 300 mg PO BID 07/30/23 08/04/23 Unknown hyoscyamine sulfate 0.125 mg 0.125 mg PO QID PRN Other 07/30/23 08/04/23 Unknown disintegrating tablet polyethylene glycol 3350 17 17 g PO DAILY 07/30/23 08/04/23 Unknown gram/dose oral powder (Miralax) Adderall XR 5 mg PO QAM 08/04/23 08/04/23 Unknown bupropion HCl 150 mg 24 hr tablet, 150 mg PO DAILY 08/04/23 08/04/23 Unknown extended release bupropion HCl 300 mg 24 hr tablet, 300 mg PO DAILY 08/04/23 08/04/23 Unknown extended release desvenlafaxine succinate 25 mg 25 mg PO DAILY 08/04/23 08/04/23 Unknown tablet,extended release 24 hr diphenhydramine 25 1 tab PO HS PRN Sleep 08/04/23 08/04/23 Unknown mg-acetaminophen 500 mg tablet (Tylenol PM Extra Strength) Active Medications Generic Name Dose Route Start Last Admin Trade Name Missaelq PRN Reason Stop Dose Admin Amitriptyline HCl 25 mg 08/04/23 21:48 08/04/23 22:16 Amitriptyline Hcl 25 Mg Tab PO 09/03/23 21:47 25 mg HS DINO Administration Amphetamine/Dextroamphetamine 5 mg 08/05/23 09:00 08/05/23 08:05 Dextroamphetamine/Amphetamine Er 5 Mg Cap PO 08/19/23 08:59 5 mg QAM DINO Administration Bupropion HCl 300 mg 08/05/23 09:00 08/05/23 08:05 Bupropion Xl 300 Mg Tabcr PO 09/04/23 08:59 300 mg DAILY DINO Administration Bupropion HCl 150 mg 08/05/23 09:00 08/05/23 08:05 Bupropion Xl 150 Mg Tabcr PO 09/04/23 08:59 150 mg DAILY DINO Administration Buspirone HCl 20 mg 08/04/23 21:48 08/05/23 08:05 Buspirone 5 Mg Tab PO 09/03/23 21:47 20 mg BID DINO Administration Gabapentin 300 mg 08/04/23 21:48 08/05/23 08:06 Gabapentin 300 Mg Cap PO 09/03/23 21:47 300 mg BID DINO Administration Sodium Chloride 1,000 mls @ 100 mls/hr 08/04/23 20:15 08/05/23 07:28 Nss IV 09/03/23 20:14 100 mls/hr .Q10H DINO Administration Piperacillin Sod/Tazobactam 100 mls @ 25 mls/hr 08/05/23 00:00 08/05/23 07:32 Sod 4.5 gm/ Dextrose IV 08/15/23 00:00 25 mls/hr Q8H DINO Administration Protocol Miscellaneous 1 each 08/05/23 00:00 08/05/23 07:28 *Desvenlafaxine*Order Awaiting Action N/A 09/04/23 00:00 Not Given QS DINO Morphine Sulfate 3 mg 08/04/23 20:08 08/05/23 07:22 Morphine Sulfate 4 Mg/Ml 1 Ml Carp\Vial IV 08/18/23 20:07 3 mg Q3H PRN Administration Pain Ondansetron HCl 4 mg 08/04/23 20:08 08/05/23 04:14 Ondansetron Inj 2 Mg/Ml 2 Ml Vial IV 09/03/23 20:07 4 mg Q6H PRN Administration Nausea And Vomiting Pantoprazole Sodium 40 mg 08/05/23 09:00 08/05/23 08:06 Pantoprazole 40 Mg Tab PO 09/04/23 08:59 40 mg QAM DINO Administration Protocol Phenol 2 sprays 08/05/23 03:48 08/05/23 04:09 Chloraseptic (Phenol) 1.4% Soln 180 Ml Btl MT 09/04/23 03:47 2 sprays Q8H PRN Administration Sore Throat NPO Date Last Intake of Fluids: 08/04/23 Time Last Intake of Fluids: 23:00 Last Intake of Fluids Comment: sip water meds @ 0806 Date Last Intake of Solids: 08/04/23 Time Last Intake of Solids: 23:00 Past Medical History Medical History (Updated 08/05/23 @ 08:28 by Krzysztof Iverson DO, FACS) Acute calculous cholecystitis Vitamin D deficiency Hyperparathyroidism, secondary Difficulty swallowing Thyroid nodule Osteoarthritis Migraine Encounter for pre-operative examination Anemia hx PROM (premature rupture of membranes) Vapes nicotine containing substance Depression with anxiety Irritable bowel syndrome Obsessive compulsive disorder 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) Anxiety Fibromyalgia Generalized anxiety disorder (01/30/13) Depression Past Family History Family History Mother Hypertension Stroke Family history of reaction to anesthesia had breathing issues when she woke up after back surgery Father Hypertension Denies family history of Ovarian cancer Breast cancer Colorectal cancer Past Surgical History Surgical History Hx of colonoscopy History of esophagogastroduodenoscopy (EGD) History of tooth extraction H/O wisdom tooth extraction H/O laparoscopy (01/30/13) Social History Smoking Status: Current every day smoker tobacco type: e-cigarettes Smoking cigarettes per day: vaps daily Do You Dip or Chew Tobacco: No Hx Alcohol Use: No alcohol intake frequency: holidays/special occasions only Hx Substance Use: No substance use type: does not use Review of Systems Constitutional: + fever (Febrile episode noted in May 2023 with no recurrence); no chills Eyes: + corrective lenses Ear, Nose, Mouth, Throat: no hearing loss Respiratory: no cough and no dyspnea Cardiovascular: no chest pain Gastrointestinal: as per Subjective / HPI Genitourinary (Female): no dysuria Musculoskeletal: no back pain Integumentary: no rash Neurologic: no localized weakness Physical Exam Vital Signs Last Vital Signs Temp 36.5 C 08/05/23 09:21 Pulse 86 08/05/23 09:21 Resp 20 08/05/23 09:21 BP 122/82 08/05/23 09:21 Pulse Ox 99 08/05/23 09:21 O2 Del Method Room Air 08/05/23 09:21 Constitutional WD/WN, vitals as above Eyes + anicteric sclerae ENMT Ears: no hearing impairment and no external ear abnormality Mouth: no oropharynx abnormality Neck trachea midline Respiratory normal respiratory effort, lungs clear to auscultation Cardiovascular RRR, no murmur, no edema Rate/Rhythm: regular rate and regular rhythm Gastrointestinal (Abdomen) Percussion/Palpation: + abdomen tender (RUQ) and abdomen soft; no guarding and abdomen not rigid Skin no rashes Neurologic moves all extremities Psychiatric Orientation: alert and oriented x 3 Affect: + flat affect Testing Laboratory Results 08/05/23 05:46 08/05/23 05:46 PT 10.4 Seconds (9.0-12.0) 08/04/23 17:00 INR 0.9 (0.9-1.1) 08/04/23 17:00 APTT 29 Seconds (21-31) 08/04/23 17:00 Urine Color Yellow 08/04/23 16:46 Urine Appearance Clear (Clear) 08/04/23 16:46 Urine pH 7.5 (4.5-7.5) 08/04/23 16:46 Ur Specific [place] 1.008 (1.000-1.030) 08/04/23 16:46 Urine Protein Negative (Negative) 08/04/23 16:46 Urine Glucose (UA) Negative (Negative) 08/04/23 16:46 Urine Ketones Negative (Negative) 08/04/23 16:46 Urine Nitrite Negative (Negative) 08/04/23 16:46 Ur Leukocyte Esterase Negative (Negative) 08/04/23 16:46
[2023-08-05] MEDS ORDERED: BUPIVACAINE 0.5 % 5 MG/1 ML MPF 30ML VIAL ONE (10:04)
[2023-08-05] MEDS ORDERED: ONDANSETRON INJ 2 MG/ML 2 ML VIAL ONE (10:05)
[2023-08-05] MEDS ORDERED: PROPOFOL IV EMULSION 10 MG/ML 20 ML VIAL IV ONE (10:05)
[2023-08-05] MEDS ORDERED: ROCURONIUM BROMIDE 10 MG/ML 5 ML VIAL IV ONE (10:05)
[2023-08-05] MEDS ORDERED: NEOSTIGMINE METHYLSULFATE 1 MG/ML 10ML VIAL ONE (10:05)
[2023-08-05] MEDS ORDERED: MIDAZOLAM HCL 1 MG/ML 2ML VIAL ONE (10:05)
[2023-08-05] MEDS ORDERED: GLYCOPYRROLATE 0.2 MG/ML VIAL ONE (10:05)
[2023-08-05] MEDS ORDERED: LIDOCAINE 2% 2 ML VIAL/AMP(20MG/ML) INFIL ONE (10:05)
[2023-08-05] MEDS ORDERED: DEXAMETHASONE SOD INJ 4 MG/ML VIAL ONE (10:05)
[2023-08-05] MEDS ORDERED: fentaNYL citrate PF 100 MCG/2 ML VIAL ONE ×2 (10:06→11:10)
[2023-08-05] MEDS ORDERED: ePHEDrine sulfate 50 MG/ML AMP IV PRN (10:11)
[2023-08-05] MEDS ORDERED: HYDROmorphone INJ 2 MG/ML SYR/VIAL IV PRN (10:11)
[2023-08-05] MEDS ORDERED: ATROPINE SULFATE 0.1 MG/ML 10ML SYR IV PRN (10:11)
[2023-08-05] MEDS ORDERED: ONDANSETRON INJ 2 MG/ML 2 ML VIAL IV PRN (10:11)
[2023-08-05] MEDS ORDERED: LACTATED RINGER'S 1,000 ML IV SCH (10:30)
[2023-08-05] MEDS ORDERED: LABETALOL HCL IV 5 MG/ML 20ML IV ONE (11:14)
--- NOTE | 2023-08-05 11:31 | Operative Report ---
PG Post Operative Report Pre & Post Diagnosis Operation Date: 08/05/23 08:20 Pre-Op Diagnosis: CHOLECYSTITIS Post-Op Diagnosis: CHOLECYSTITIS I identified the patient and participated in the time-out.: Yes Procedure Operation Date: 08/05/23 08:20 Actual Procedures p Robotic assisted Laparoscopic Cholecystectomy (Not Applicable) - Krzysztof Iverson DO, FACS Surgeon Krzysztof Iverson DO, FACS Hog Room Supervisor Gaby Fraire Estimated Blood Loss 5 Findings Consistent with Post-Op Diagnosis Mild acute cholecystitis. Critical view of safety obtained, cystic duct and artery doubly clipped and divided. Good hemostasis. Small spillage of bile and stones, irrigated and retrieved Specimens Gallbladder Anesthesia Type General Complications none Disposition Accompanied Patient To Recovery: No Disposition: Recovery Room Indications 38-year-old female presented with HIDA scan that showed acute cholecystitis, plan for robotic cholecystectomy. The risks of the procedure were discussed, all questions were answered, and the patient agreed to proceed with surgery as planned. Description of Procedure The patient was properly identified, consented, and taken to the operating room where she was placed in the supine position. 2.5 mg of indocyanine green were administered IV approximately 45 min prior to the surgery. General endotracheal anesthesia was induced. SCDs and a safety belt were placed. Preoperative antibiotics were administered. The patient's abdomen was prepped and draped in the standard sterile fashion. A surgical timeout was performed and all parties were in agreement that this was the correct patient and procedure to be performed and we continued as planned. An incision was made just above the umbilicus and to the right of midline. Veress needle was inserted and saline drop test confirmed entry to the abdomen. The abdomen was insufflated with carbon dioxide which the patient tolerated incident. Veress needle was removed and the abdomen is entered using the Optiview technique and a 5 mm camera. The introducer was removed and the abdomen inspected. No damage from initial trocar placement or Veress needle placement was identified. There were no significant abnormalities to the 4 quadrants of the abdomen. 8 mm robotic ports were then placed on the left and right. An additional 5 mm visitor service assistant port was placed in the lateral right subcostal position. The patient was placed in reverse Trendelenburg position and rotated towards the left. The robot was then docked and the camera and robotic instruments were inserted. The gallbladder was mildly and acutely inflamed. The dome of the gallbladder was grasped by the visitor service assistant and retracted towards the left upper quadrant and the infundibulum was retracted toward the right lower quadrant revealing Calot's triangle. Peritoneal attachments were taken down with electrocautery and blunt dissection. The cystic duct and artery were circumferentially dissected. A window of safety was obtained showing the cystic duct entering the gallbladder with no aberrant structures noted. We were able to identify the cystic duct utilizing the ICG. The cystic duct and artery were doubly clipped and divided. The gallbladder was then lifted off the gallbladder fossa with electrocautery. A small amount of bile and stones were spilled, these were retrieved and the right upper quadrant was irrigated. The right upper quadrant was irrigated and hemostasis was found to be good. The gallbladder was placed in an Endo Catch bag and removed through the one of the port sites. The instruments were removed and the robot was undocked. The trochars were removed and the abdomen was allowed to collapse. The skin of all ports was closed with 4-0 Monocryl subcuticular sutures. Dermabond was placed over the wounds. The patient was extubated in the operating room and taken to the PACU where she recovered without apparent incident. All sponge, instrument and needle counts were correct at the conclusion of the procedure. The patient tolerated the procedure well. The nurse practitioner was present and scrubbed for the entirety of the case and was essential in positioning the patient, prepping and draping, retraction and exposure, driving the laparoscope, exchange of the robotic instruments removal of the gallbladder, closure of the incisions, and placement of the dressings. I attest to the content of the Intraoperative Record and any orders documented therein. Any exceptions are noted below.
[2023-08-05] MEDS: fentaNYL citrate PF 100 MCG/2 ML VIAL IV PRN ×5 (12:03→12:30)
--- NOTE | 2023-08-05 12:43 | Anesthesiology Progress Note ---
Date of Service August 05, 2023 Anesthesia Post Procedure Vital Signs Vital Signs: Temp Pulse Pulse Pulse Resp BP BP 08/05/23 12:35 71 16 104/74 08/05/23 12:25 82 16 103/75 08/05/23 12:15 73 16 107/78 08/05/23 12:05 72 6 L 106/77 08/05/23 11:55 74 9 L 108/76 08/05/23 11:49 36.2 C L 72 14 112/77 08/05/23 09:21 36.5 C 86 20 122/82 08/05/23 07:42 36.4 C L 71 16 111/76 08/05/23 04:00 36.8 C 72 16 124/78 08/04/23 21:50 36.4 C L 84 16 130/86 08/04/23 17:22 92 H 18 08/04/23 17:21 91 H 18 110/82 08/04/23 15:46 36.8 C 109 H 20 144/93 H Pulse Ox O2 Del Method O2 Flow Rate 08/05/23 12:35 100 Nasal Cannula 2 08/05/23 12:25 100 Oxymask 3 08/05/23 12:15 97 Oxymask 5 08/05/23 12:05 94 Oxymask 5 08/05/23 11:55 95 Oxymask 5 08/05/23 11:49 93 Oxymask 5 08/05/23 09:21 99 Room Air 08/05/23 07:42 100 Room Air 08/05/23 04:00 98 Room Air 08/04/23 21:50 98 Room Air 08/04/23 17:22 99 Room Air 08/04/23 17:21 99 Room Air 08/04/23 15:46 96 Room Air Pain Intensity Abdomen: Pain Intensity: 5 Transfer of Care Handoff Completed per policy Notes Mental Status: alert / awake / arousable and participated in evaluation Patient Amnestic to Procedure: Yes Nausea / Vomiting: adequately controlled Pain: adequately controlled Airway Patency, RR, SpO2: stable & adequate BP & HR: stable & adequate Hydration State: stable & adequate Anesthetic Complications: no major complications apparent and Pt Satisfied with anesthetic care
[2023-08-05] MEDS: LORazepam 1 MG TAB PO PRN (16:30)
[2023-08-05] MEDS ORDERED: ACETAMINOPHEN 500 MG TAB PO PRN (17:31)
[2023-08-05] MEDS: oxyCODONE HCL IR 5 MG TAB (IMMEDIATE RELEASE) PO PRN ×2 (17:48→21:46)
[2023-08-05] MEDS: AMITRIPTYLINE HCL 25 MG TAB PO SCH (20:16)
[2023-08-06] MEDS: PIPERACILLIN/TAZOBACTAM 4.5 GM in DEXTROSE 5% MINI-B 100 ML IV SCH ×2 (00:06→07:17)
[2023-08-06] MEDS: MoRPHine SULFATE 4 MG/ML 1 ML CARP\\VIAL IV PRN (00:33)
[2023-08-06] MEDS: oxyCODONE HCL IR 5 MG TAB (IMMEDIATE RELEASE) PO PRN ×2 (02:45→07:18)
[2023-08-06] MEDS: [UNRECOGNIZED DRUG - OTHER] SCH (07:16)
[2023-08-06] MEDS ORDERED: KETOROLAC TROMETHAMINE 15 MG/ML VIAL IV ONE (07:48)
[2023-08-06] MEDS: LORazepam 1 MG TAB PO PRN (07:50)
[2023-08-06 07:57] LABS: Basophils # (auto) 0.03 K/uL (0.00-0.20); Basophils % (auto) 0.3 %; Eosinophils # (auto) 0.19 K/uL (0.00-0.50); Eosinophils % (auto) 1.9 %; Hematocrit (blood only) 36.1 % (37.0-47.0); Hemoglobin 11.6 g/dl (12.0-16.0); Immature Granulocytes # (auto) 0.03 K/uL (0.01-0.20); Immature Granulocytes % (auto) 0.3 %; Lymphocytes % (auto) 16.6 %; Mean Corpuscular Hemoglobin 26.3 pg (25.0-34.0); Mean Corpuscular Hgb Conc 32.1 g/dL (32.0-36.0); Mean Corpuscular Volume 81.9 fL (80.0-100.0); Mean Platelet Volume 11.7 fL (9.4-12.4); Monocytes # (auto) 0.75 K/uL (0.11-0.59); Monocytes % (auto) 7.3 %; Neutrophils # (auto) 7.53 K/uL (1.40-6.50); Neutrophils % (auto) 73.6 %; Platelet Count 338 K/uL (130-400); RDW Coefficient of Variation 13.5 % (11.5-14.5); RDW Standard Deviation 39.8 fL (36.4-46.3); Red Blood Count 4.41 M/uL (4.20-5.40); White Blood Count 10.23 K/ul (4.8-10.8)
--- NOTE | 2023-08-06 08:01 | Surgery Progress Note ---
Date of Service August 06, 2023 Assessment & Plan (1) Acute cholecystitis: Plan: POD#1 lap tatyana WBC 10, Hbg 11.6, BMP pending Patient's abdomen soft, incisions c/d/i, discomfort noted kimberly incisionally Will offer patient some Toradol IV this AM and see if this helps her pain in addition to her current regimen If breakfast is tolerated, pain controlled, and vitals and remaining labs are stable she may be discharged to home Plan to f/u in clinic with Dr. Ivesron in 2 weeks Dispo instructions reviewed Admission and Anticipated Discharge Date Admission Date: August 04, 2023 Supervising Physician Co-Signing Physician Notes pnt d/w Aliyah Gibbons, agree with above. POD#1 robotic tatyana, some pain but improved with meds. tolerated diet. d/c to home, f/u in 2 weeks, instructions given. Subjective Patient having some abdominal discomfort this AM, in RUQ region mostly. It is manageable with prn pain meds for the most part. She is tolerating a diet, no nausea/vomiting. She is voiding. Physical Exam Physical Exam: awake/alert, tearful when discussing FMLA ppwk Gastrointestinal (Abdomen): Inspection/Auscultation: + abdominal surgical incision (c/d/i with skin glue, no signs of infection); abdomen not distended Percussion/Palpation: + abdomen tender (expected kimberly incisional discomfort and in RUQ) and abdomen soft; no guarding Results & Data Vital Signs (Past 12 Hours) Vital Signs Temp Pulse Resp BP Pulse Ox O2 Del Method 08/06/23 04:35 36.7 C 94 H 18 96/65 L 97 Room Air 08/05/23 23:04 36.7 C 107 H 18 122/82 96 Room Air PG Care Time/CCT Total # of Minutes Spent Total Time Spent with Patient: Total time spent is greater than 50% in coordination of care (as documented) at patient's floor/unit and/or counseling patient: Coding Level of Care Code 84996 Post Operative Follow-Up Diagnoses Acute cholecystitis K81.0
[2023-08-06] MEDS: busPIRone 5 MG TAB PO SCH (08:03)
[2023-08-06] MEDS: GABAPENTIN 300 MG CAP PO SCH (08:03)
[2023-08-06] MEDS: buPROPion XL 150 MG TABCR PO SCH (08:04)
[2023-08-06] MEDS: buPROPion XL 300 MG TABCR PO SCH (08:04)
[2023-08-06] MEDS: PANTOprazole 40 MG TAB PO SCH (08:04)
[2023-08-06] MEDS: DEXTROAMPHETAMINE/AMPHETAMINE ER 5 MG CAP PO SCH (08:08)
[2023-08-06 08:18] LABS: Albumin Globulin Ratio 1.5 (0.9-2); Albumin Level 3.9 gm/dl (3.4-5.0); BUN Creatinine Ratio 13.5 (10-20); Bilirubin,Total 0.5 mg/dl (0.2-1.0); Creatinine Clr Calc Pharmacy 88.1 ml/min; Est GFR (African American) 118.3 ml/min; Est GFR (Non-African American) 102.1 ml/min; Globulin 2.6 gm/dl (2.5-4.0); Potassium 3.4 mmol/L (3.5-5.1); Total Protein 6.5 gm/dl (6.0-8.3)
[2023-08-06] MEDS ORDERED: POTASSIUM CHLORIDE CRTAB 20 MEQ TABCR PO STA (08:25)
--- NOTE | 2023-08-06 15:42 | Discharge Summary ---
Date of Service August 06, 2023 Admission HPI Per Admitting Provider This is a 38-year-old female that has had ongoing abdominal pain since May 2023. The patient notes that the pain usually occurs after eating but often times is not precipitated by eating. She does not identify any other provocative factors. She denies any palliative factors. She does note that she has nausea without vomiting when she gets the pain. The pain is primarily confined to the right upper quadrant and to a lesser degree the epigastric area without radiation. She notes that during one of the initial episodes of pain she experienced a fever of approximately 101. The patient notes that she has contacted her primary care team regarding this pain and underwent an abdominal ultrasound on 06/26/2023. This showed the patient had gallstones without evidence of acute cholecystitis. The patient continued to have ongoing pain as described above and it took a considerable amount of time to get back in with her primary care team. She notes that she ultimately had a HIDA scan ordered and this was performed today. This study showed that there is no uptake of radiotracer by the gallbladder which is felt to be compatible with acute cholecystitis. Because of these findings her primary care team encouraged her to report to the emergency department. In the emergency department the patient did have labs performed which included a CBC were white blood cell count and platelet count were normal. Her hemoglobin was normal and her hematocrit was slightly low at 36.6. Coagulation studies were normal. Chemistry profile showed sodium and potassium along with the BUN and creatinine were normal. Lactic acid was nonelevated. The patient's total bilirubin was nonelevated and the AST was nonelevated. The ALT had a slight elevation at 74 and the alkaline phosphatase was elevated at 130. Her lipase was nonelevated. A test was negative. A urinalysis was negative for infection. Because of the slight elevation of her LFTs and her ongoing pain a repeat gallbladder ultrasound was performed. This showed the patient had cholelithiasis. There is no clear evidence of cholecystitis on the study. Patient was noted to have some dilatation of the common bile duct of approximate 7 mm but there is no intrahepatic biliary ductal dilatation. I did asked the patient on her activities of daily living the patient says she works at [employer] and has to walk considerable distances for up to 15 minutes during her day-to-day activities. With these activities the patient denies any chest pain or shortness of breath. She also adds that she has had prior abdominal surgeries in the form of an exploratory laparoscopy for endometriosis, at which time she had her fallopian tubes removed. At the time of my interview the patient was resting comfortably in bed and she was in no distress. Principal Diagnosis acute cholecystitis Discharge Exam awake/alert, tearful when discussing FMLA ppwk Neck normal visual inspection and trachea midline Respiratory normal respiratory effort and able to speak in complete sentences; no respiratory distress Cardiovascular Rate/Rhythm: regular rate Gastrointestinal (Abdomen) Inspection/Auscultation: + abdominal surgical incision (c/d/i with skin glue, no signs of infection); abdomen not distended Percussion/Palpation: + abdomen tender (expected kimberly incisional discomfort and in RUQ) and abdomen soft; no guarding and abdomen not rigid Skin no rashes Neurologic moves all extremities Psychiatric Orientation: alert and oriented x 3 Discharge Data Allergies Allergy/AdvReac Type Severity Reaction Status Date / Time adhesive Allergy Intermediate RASH Verified 01/02/23 14:31 ciprofloxacin AdvReac Intermediate nausea/depr Verified 01/02/23 14:31 ession moxifloxacin AdvReac Intermediate RASH Verified 01/02/23 14:31 Procedures Performed Operation Date: 08/05/23 08:20 Actual Procedures p Robotic assisted Laparoscopic Cholecystectomy (Not Applicable) - Krzysztof Iverson, DO, FACS Ordered Studies 08/04/23 17:57 US gallbladder Stat 08/04/23 20:08 MR MRCP Stat Hospital Course (1) Acute cholecystitis: Patient presented to the [facility] ER 08/04/23 with c/o abdominal pain, see HPI for specific details. A work up in the ER showed Cholelithiasis/ cholecystitis. She was admitted to the hospital for care and observation. She was provided analgesics, antiemetics, antibioticsthe patient has had Zosyn initiated in the emergency department, IV fluid for hydration, n.p.o. status. She underwent a laparoscopic cholecystectomy with Dr. Iverson on 08/05/23. She remained over night post procedure. On 08/06/23 her diet was advanced and tolerated without nausea and vomiting. She was tolerating her pain on PO medication. Her CBC was wnl. BMP showed potassium at 3.4 which was repleted with 40Meq PO. VSS. Patient was deemed stable to discharge on 08/06/23 and verbalized return precautions and follow instructions. She was given a prescription for PO narcotics. The patient remained stable throughout the entire hospital course. Total Time Total Time Spent Total Time Spent (In Minutes): 30 Discharge Plan Discharge Items Patient Disposition: Home - Self-Care Reason For Visit: CHOLECYSTITIS Discharge Diagnosis: laparoscopic cholecystectomy Activity: As commented below Lifting: No more than 10 pounds Bathing Comment: shower. No pools or bath for 2 weeks Exercise/Sports: Wait until after follow-up appointment Driving/Machine Use: no driving while taking narcotic pain meds Non-emergency contact: Surgeon Call non-emergency contact if: you have any medication questions, your symptoms worsen, your pain is not controlled, your pain is unusual for you, your temperature is above 101, your wound has increased redness, your wound has increased drainage and your wound pain has increased Follow-up/Referrals: Krzysztof Iverson DO, FACS [Physician] - 08/19/23 11:15 am (2nd floor, building in front of hospital [address] ) Ria Echeverria [Primary Care Provider] - Diet: Regular Addtl Attending Provider Instructions: You have surgical glue called dermabond on your surgical site incisions. You may shower with this on. This will tend to come off within a couple of weeks. Do not pick at it. You may purchase Tylenol and/or Ibuprofen over the counter if needed for additional pain control over the next few days. Take per manufacturers instructions. Do Not take more than 3 grams of Tylenol in 24 hours. Pending Studies at Discharge: Yes Studies:: surgical pathology Stand-Alone Forms: My [facility], Pain - Opioid Pain Management, Smoking Cessation Medications and DC Order Prescriptions: New oxycodone 5 mg tablet 5 - 10 mg PO .[id number] MDD no more than 6 tabs in 24hours PRN (Reason: pain) Qty: 15 0RF Rx Instructions: take one to two tablets by mouth every 4-6 hours as needed for pain. Continued polyethylene glycol 3350 [Miralax] 17 gram/dose powder 17 g PO DAILY hyoscyamine sulfate 0.125 mg tablet,disintegrating 0.125 mg PO QID PRN (Reason: Other) gabapentin 300 mg capsule 300 mg PO BID cholecalciferol (vitamin D3) 125 mcg (5,000 unit) capsule 125 mcg PO DAILY amitriptyline 25 mg tablet 25 mg PO HS tramadol 50 mg tablet 50 mg PO DAILY PRN (Reason: Pain) lorazepam 1 mg tablet 1 mg PO DAILY PRN (Reason: Panic Attack(S)) multivitamin Tablet 1 tab PO DAILY naproxen 250 mg Tablet 250 mg PO QPM PRN (Reason: Other) omeprazole 20 mg Tablet,Delayed Release (Dr/Ec) 40 mg PO QAM buspirone 5 mg tablet 20 mg PO BID Adderall XR 5 mg PO QAM diphenhydramine-acetaminophen [Tylenol PM Extra Strength] 25-500 mg Tablet 1 tab PO HS PRN (Reason: Sleep) bupropion HCl 300 mg tablet extended release 24 hr 300 mg PO DAILY bupropion HCl 150 mg tablet extended release 24 hr 150 mg PO DAILY desvenlafaxine succinate 25 mg tablet extended release 24 hr 25 mg PO DAILY Discharge Orders: Discharge Order (Routine); Ordered 08/06/23 Ordered By: Aliyah Larios/Other Patient Handouts: DVT Post Op Prevention Admission Data Admit Date/Time: 08/04/23 20:29 Attending Provider: Krzysztof Iverson Admit Provider: Krzysztof Iverson Primary Care Provider: Ria Echeverria Other Interventions: Discharge Summary Assessment (RN) Last Done: 08/06/23 09:15 Supervising Physician Co-Signing Physician Notes pnt d/w Aliyah Gibbons, agree with above. POD#1 robotic tatyana, some pain but improved with meds. tolerated diet. d/c to home, f/u in 2 weeks, instructions given. Coding Level of Care Code 69397 IN/OBS DISCH 30 MIN/LESS Diagnoses Acute cholecystitis K81.0
== END 2023-08-06 09:38 | disposition home or self-care (01) ==
LOC: ED 15:21 → INTOOBSV 20:29 → 3W 20:29

== ENCOUNTER 2024-10-15 16:22 | Inpatient (IN) ==
[2024-10-15 17:42] LABS: Basophils # (auto) 0.04 K/uL (0.00-0.20); Basophils % (auto) 0.7 %; Eosinophils % (auto) 5.2 %; Hematocrit (blood only) 37.2 % (37.0-47.0); Hemoglobin 12.8 g/dl (12.0-16.0); Immature Granulocytes # (auto) 0.01 K/uL (0.01-0.20); Immature Granulocytes % (auto) 0.2 %; Lymphocytes # (auto) 2.07 K/uL (1.20-3.40); Mean Corpuscular Hemoglobin 28.3 pg (25.0-34.0); Mean Corpuscular Hgb Conc 34.4 g/dL (32.0-36.0); Mean Corpuscular Volume 82.3 fL (80.0-100.0); Mean Platelet Volume 11.8 fL (9.4-12.4); Monocytes # (auto) 0.49 K/uL (0.11-0.59); Monocytes % (auto) 8.5 %; Neutrophils # (auto) 2.84 K/uL (1.40-6.50); Neutrophils % (auto) 49.4 %; Platelet Count 295 K/uL (130-400); RDW Coefficient of Variation 12.5 % (11.5-14.5); RDW Standard Deviation 37.5 fL (36.4-46.3); Red Blood Count 4.52 M/uL (4.20-5.40); White Blood Count 5.75 K/ul (4.8-10.8)
[2024-10-15 17:49] LABS: Appearance Urine Clear (Clear); Bacteria Urine Automated 1+ (None Seen); Bilirubin Urine Negative (Negative); Blood Urine Negative (Negative); Cast Urine Automated 0-2 /lpf (0-2); Color Urine Yellow; Glucose Urine UA Negative (Negative); Ketones Urine Trace (Negative); Leukocyte Esterase Urine 1+ (Negative); Nitrite Urine Negative (Negative); Protein Urine Negative (Negative); RBC Urine Automated 0-2 /hpf (0-2); Specific Gravity Urine 1.025 (1.000-1.030); Urobilinogen Urine Negative (Negative)
[2024-10-15 17:53] LABS: Albumin Globulin Ratio 1.7 (0.9-2); Albumin Level 4.5 gm/dl (3.4-5.0); BUN Creatinine Ratio 15.3 (10-20); Bilirubin,Total 0.4 mg/dl (0.2-1.0); Creatinine Clr Calc Pharmacy 88.4 ml/min; Globulin 2.7 gm/dl (2.5-4.0); Potassium 3.8 mmol/L (3.5-5.1); Total Protein 7.2 gm/dl (6.0-8.3)
[2024-10-15 17:59] LABS: Acetaminophen < 3 ug/ml (10-30); Salicylate < 3.0 mg/dl (3.0-30)
[2024-10-15 18:08] LABS: Thyroid Stimulating Hormone 0.707 uIu/ml (0.300-4.500)
[2024-10-15 18:30] LABS: Amphetamines+Metham, Urine Pos (Neg); Barbiturates, Urine Neg (Neg); Benzodiazepine, Urine Neg (Neg); Cocaine, Urine Neg (Neg); Fentanyl, Urine Neg (Neg); MDMA (Ecstacy), Urine Pos (Neg); Marijuana, Urine Pos (Neg); Methadone, Urine Neg (Neg); Opiate, Urine Neg (Neg); Phencyclidine, Urine Neg (Neg)
[2024-10-15 19:06] LABS: Pregnancy Test, Urine Negative (Negative)
--- NOTE | 2024-10-15 21:21 | Emergency Department Note ---
History of Present Illness General Chief complaint: Mental Health Evaluation Stated complaint: MHE, REF BY DOC Time Seen by Provider: 10/15/24 17:07 History of Present Illness Provider complaint: Mental health evaluation Onset (ago): week(s) 1 3-year-old female presents emergency department for mental health evaluation. Patient reports that she is having thoughts of killing himself. Patient states for the last week she has been having thoughts of wanting kill her self. Patient reports she saw a knife today wanting to stab her self. She denies any access to any firearms. Home Medications Medication Instructions Recorded Confirmed Type omeprazole 20 mg tablet,delayed 40 mg PO ONCE HS 06/29/21 10/15/24 History release gabapentin 300 mg capsule HS 07/30/23 08/04/23 History (Neurontin) Adderall XR 30 mg PO QAM 08/04/23 10/15/24 History buspirone 30 mg tablet 30 mg PO BID 10/15/24 10/15/24 History celecoxib 100 mg capsule (Celebrex) mg HS 10/15/24 History gabapentin 300 mg capsule 300 mg PO DAILY 10/15/24 10/15/24 History Allergies Allergy/AdvReac Type Severity Reaction Status Date / Time adhesive Allergy Intermediate RASH Verified 08/19/23 11:19 ciprofloxacin AdvReac Intermediate nausea/depr Verified 08/19/23 11:19 ession moxifloxacin AdvReac Intermediate RASH Verified 08/19/23 11:19 Past Med/Surg History Problem List (Updated 10/15/24 @ 21:21 by Xavier Roman MD) Depression with suicidal ideation (Acute) Acute calculous cholecystitis Acute cholecystitis (Acute) Chronic pain Cholelithiasis Anxiety and depression Vitamin D deficiency Hyperparathyroidism, secondary Difficulty swallowing Thyroid nodule Urinary tract infection symptoms Gestational diabetes Right ovarian cyst Elderly multigravida Need for rhogam due to Rh negative mother Engages in vaping Vaginal bleeding affecting early Encounter for anatomic survey Supervision of normal intrauterine in multigravida Gastroenteritis with 33 completed weeks gestation Anxiety Anemia hx Vapes nicotine containing substance Depression with anxiety Irritable bowel syndrome Obsessive compulsive disorder 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) Generalized anxiety disorder (Chronic 01/30/13) Medical History Osteoarthritis Migraine Encounter for pre-operative examination PROM (premature rupture of membranes) Fibromyalgia Depression Surgical History Hx laparoscopic cholecystectomy (08/05/23) Robotic assisted Laparoscopic Cholecystectomy (Not Applicable) - Krzysztof Iverson DO, FACS Hx of colonoscopy History of esophagogastroduodenoscopy (EGD) History of tooth extraction H/O wisdom tooth extraction H/O laparoscopy (01/30/13) Family History Mother Hypertension Stroke Family history of reaction to anesthesia had breathing issues when she woke up after back surgery Father Hypertension Denies family history of Ovarian cancer Breast cancer Colorectal cancer Social History Smoking Status: Current every day smoker Tobacco Type: E-cigarettes / Vaping Cigarettes Per Day: vaps daily; Second Hand Exposure: No; Do You Dip or Chew Tobacco: No; Hx Alcohol Use: No Hx Substance Use: No Preferred Language: Sierra Leonean Communication Ability: Effective Membership Director Required: No Beliefs That Will Affect Care: None marital status: marital status details: Bashir Zuniga [phone] Current Living Situation: Spouse Current Living Situation Comment: lives with spouse, 2 children, and a cat current occupational status: employed current occupation: [employer] Feels Safe at Home: Yes Gender Identity: Female Assistive Devices: None Physical Exam Vital Signs Vital Signs - 24 hr 10/15/24 16:45 10/15/24 19:00 Temperature 36.6 C Temperature Source Temporal Artery Scan Pulse Rate 96 H Pulse Rate [Finger] 62 Pulse Rhythm [Finger] Regular Respiratory Rate 18 16 Respiratory Effort / Characteristics Non-Labored Spontaneous Non-Labored Spontaneous Respiratory Depth Normal Normal Respiratory Pattern Regular Regular Blood Pressure 105/74 Blood Pressure [Right Arm] 96/62 L Blood Pressure Mean 84 Blood Pressure Mean [Right Arm] 73 Blood Pressure Position [Right Arm] Lying Pulse Oximetry 97 97 Oxygen Delivery Method Room Air Room Air Sepsis Recent Fever Within 48 Hours No Sepsis New/Unexplained Change in Mental Status No Sepsis Action Taken by Nursing No Action Required Physical Exam GENERAL: oriented to person, place, and time. appears well-developed and well- nourished. HENT: Exam performed. - Head: Normocephalic and atraumatic. EYES: Conjunctivae and EOM are normal. Right eye exhibits no discharge. Left eye exhibits no discharge. No scleral icterus. NECK: Normal range of motion. Neck supple. No JVD present. CV: Normal rate, regular rhythm, normal heart sounds and intact distal pulses. There is no peripheral edema. Palpable radial pulses bue. PULM/CHEST: Effort normal and breath sounds normal. No respiratory distress. No stridor. no wheezes. no rales. ABD: The abdomen is soft. There is no tenderness. NEURO: Motor and sensation grossly intact. SKIN: Skin is warm and dry. He is not diaphoretic. PSYCH: Depressed. Suicidal ideation. Course Course 170: The patient was evaluated in room A6. A complete history and physical exam was performed Medical Decision Making Laboratory Data Attestation: I reviewed the patient's lab results. 10/15/24 17:05 10/15/24 17:05 Lab Results 10/15/24 Range/Units 17:05 WBC 5.75 (4.8-10.8) K/ul RBC 4.52 (4.20-5.40) M/uL Hgb 12.8 (12.0-16.0) g/dl Hct 37.2 (37.0-47.0) % MCV 82.3 (80.0-100.0) fL MCH 28.3 (25.0-34.0) pg MCHC 34.4 (32.0-36.0) g/dL RDW Std Deviation 37.5 (36.4-46.3) fL RDW Coeff of Etienne 12.5 (11.5-14.5) % Plt Count 295 (130-400) K/uL MPV 11.8 (9.4-12.4) fL Immature Gran % (Auto) 0.2 % Neut % (Auto) 49.4 % Lymph % (Auto) 36.0 % Cochran % (Auto) 8.5 % Eos % (Auto) 5.2 % Baso % (Auto) 0.7 % Neut # (Auto) 2.84 (1.40-6.50) K/uL Lymph # (Auto) 2.07 (1.20-3.40) K/uL Cochran # (Auto) 0.49 (0.11-0.59) K/uL Eos # (Auto) 0.30 (0.00-0.50) K/uL Baso # (Auto) 0.04 (0.00-0.20) K/uL Immature Gran # (Auto) 0.01 (0.01-0.20) K/uL Sodium 137 (136-145) mmol/L Potassium 3.8 (3.5-5.1) mmol/L Chloride 104 (98-107) mmol/L Carbon Dioxide 25 (21-32) mmol/L Anion Gap 8 (3-11) BUN 11 (6-23) mg/dl Creatinine 0.72 (0.6-1.2) mg/dl Est Cr Clr Drug Dosing 88.4 ml/min eGFR 108.33 BUN/Creatinine Ratio 15.3 (10-20) Glucose 92 (70-99(Fasting)) mg/dl Calcium 10.0 (8.6-10.3) mg/dl Total Bilirubin 0.4 (0.2-1.0) mg/dl AST 13 (13-39) U/L ALT 11 (7-52) U/L Alkaline Phosphatase 64 (34-104) U/L Total Protein 7.2 (6.0-8.3) gm/dl Albumin 4.5 (3.4-5.0) gm/dl Globulin 2.7 (2.5-4.0) gm/dl Albumin/Globulin Ratio 1.7 (0.9-2) TSH 0.707 (0.300-4.500) uIu/ml Urine Color Yellow Urine Appearance Clear (Clear) Urine pH 5.0 (4.5-7.5) Ur Specific [place] 1.025 (1.000-1.030) Urine Protein Negative (Negative) Urine Glucose (UA) Negative (Negative) Urine Ketones Trace H (Negative) Urine Blood Negative (Negative) Urine Nitrite Negative (Negative) Urine Bilirubin Negative (Negative) Urine Urobilinogen Negative (Negative) Ur Leukocyte Esterase 1+ H (Negative) Urine WBC (Auto) 6-10 H (0-5) /hpf Urine RBC (Auto) 0-2 (0-2) /hpf U Hyaline Cast (Auto) 0-2 (0-2) /lpf U Epithel Cells (Auto) 6-10 H (0-2) /hpf Urine Bacteria (Auto) 1+ H (None Seen) Urine Test Negative (Negative) Salicylates < 3.0 L (3.0-30) mg/dl Urine Opiates Screen Neg (Neg) Ur Methadone, Qual Neg (Neg) Urine Fentanyl Screen Neg (Neg) Acetaminophen < 3 L (10-30) ug/ml Urine Barbiturates Neg (Neg) Ur Phencyclidine (PCP) Neg (Neg) U Amphetamin/Meth Scrn Pos H (Neg) MDMA (Ecstasy) Screen Pos H (Neg) U Benzodiazepines Scrn Neg (Neg) Ur Cocaine Metabolite Neg (Neg) U Marijuana (THC) Screen Pos H (Neg) Ethyl Alcohol mg/dL < 10.0 (<10.0) mg/dl SARS-CoV-2, RNA, NAAT NEGATIVE (NEGATIVE) MDM Narrative Patient medically cleared. Accepted to 3 S. Impression & Plan Depression with suicidal ideation Discharge Plan Visit Data Chief Complaint: Mental Health Evaluation Stated Complaint: MHE, REF BY DOC ED Provider: Xavier Roman Discharge Problem: Depression with suicidal ideation Patient Disposition: Admitted As Inpatient Forms Stand Alone Forms: [facility], Suicide Prevention Resources Prescriptions Prescriptions: No Action gabapentin [Neurontin] 300 mg capsule HS Rx Instructions: 600 mg orally omeprazole 20 mg Tablet,Delayed Release (Dr/Ec) 40 mg PO ONCE HS Adderall XR 30 mg PO QAM gabapentin 300 mg Capsule 300 mg PO DAILY buspirone [BuSpar] 30 mg Tablet 30 mg PO BID celecoxib [Celebrex] 100 mg Capsule HS Referrals Referrals: Ria Echeverria [Primary Care Provider] -
[2024-10-15 21:38] VITALS: O2SAT 99
[2024-10-15] MEDS ORDERED: MAGNESIUM HYDROXIDE SUSP 30 ML UDC PO PRN (22:02)
[2024-10-15] MEDS ORDERED: SODIUM CHLORIDE 0.65% NA SOLN 45 ML (OCEAN) PRN (22:02)
[2024-10-15] MEDS ORDERED: ALUMINUM/MAGNESIUM SUSP 30 ML UDC PO PRN (22:02)
[2024-10-15] MEDS ORDERED: hydrOXYzine HCl 25 MG TAB PO PRN (22:02)
[2024-10-15] MEDS ORDERED: BISMUTH SUBSALICYLATE 262 MG CHEW PO PRN (22:02)
[2024-10-15] MEDS: GABAPENTIN 600 MG TAB PO STA (22:53)
[2024-10-15] MEDS: busPIRone 15 MG TAB PO SCH (22:53)
[2024-10-15] MEDS: traZODone HCL 50 MG TAB PO ONE (22:54)
--- OUTSIDE RECORDS SUMMARY | 2024-10-16 06:24 | External Medical Summary | Continuity of Care Document ---
Author Name Unknown Organization [id number] Address [address] [place] [id number] Care Team Providers Care Wound Care Coordinator Name Role Phone Ria Echeverria Primary Care Physician [phone] [id number] Date(s): 08/17/24 - 08/17/24 [facility] [address] [facility] [facility] [address] [place], [place] [id number] Encounter Diagnosis Hoffa disease of left knee(Discharge Diagnosis) - 08/17/24 Hypertrophy, fat pad, infrapatellar(Discharge Diagnosis) - 08/17/24 Discharge Disposition: Home or Self Care Attending Physician: MD Escalante Paul K Allergies, Adverse Reactions, Alerts Substance Criticality Severity Reaction Reaction Severity Status Cipro Nausea Active Adhesive bandage rash Act mitzi Avelox swollen tongue Activ e Assessment and Plan Extracted from: Title:Angelito Escalante Author:Tika Parry te:08/17/24 Impression: 39 year old fema le with left fat pad hypertrophy, possible medial meniscus tear Plan: We discussed possible surgical intervention if her pain worsens. She would like to proceed with surgical intervention after she is able to accumulate more PTO. Prescription given for Celebrex, 1-2x/day. Advised to cease taking Ibuprofen while taking Celebrex Modify activities Follow-up in 3 months Immunizations Given and Recorded Vaccine Date Status Refusal Reason influenza virus vaccine, inactivated 05/03/20 Give n influenza virus vaccine, inactivated 07/19/19 Give n influenza virus vaccine, inactivated 05/12/15 Give n influenza virus vaccine, inactivated 06/07/13 Give n diphtheria/tetanus/pertuss, acel (DTaP) 01/03/09 R ecorded Medications Adderall 20 mg oral tablet Start: 01/01/24 3:00:00 PM EDT, 1 tab, PO, qAM, Refills: 0 Start Date: 01/01/24 Status: Ordered BuSpar 10 mg oral tablet Start: 03/04/23 1:32:00 PM EDT, 2 tab, PO, bid Start Date: 03/04/23 Status: Ordered CeleBREX 100 mg oral capsule Start: 08/17/24 1:58:00 PM EST, 1 cap, PO, bid, Disp# 60 cap, Pharmacy: [facility] Start Date: 08/17/24 Status: Ordered clonazePAM 1 mg oral tablet Start: 10/24/23 12:48:00 PM EDT, 1 tab, PO, qhs Start Date: 10/24/23 Status: Ordered famotidine 20 mg oral tablet Start: 02/13/24 1:47:00 PM EDT, 1 tab, PO, bid Start Date: 02/13/24 Status: Ordered gabapentin 300 mg oral capsule Start: 01/30/24 5:08:00 PM EDT, See Instructions, Disp# 120 cap, Refills: 5, 1 cap PO qAm, 1 cap PO in afternoon, and 2 caps PO qHS, Pharmacy: [facility] Start Date: 01/30/24 Status: Ordered MiraLax Start: 01/29/23 9:53:00 AM EDT Start Date: 01/29/23 Status: Ordered omeprazole 40 mg oral delayed release capsule Start: 01/30/24 5:09:00 PM EDT, 1 cap, PO, Daily, Disp# 30 cap, Refills: 2, Pharmacy: [facility] Start Date: 01/30/24 Status: Ordered PROzac 40 mg oral capsule Start: 10/24/23 12:50:00 PM EDT, 2 cap, PO, Daily Start Date: 10/24/23 Status: Ordered Rexulti 1 mg oral tablet Start: 01/01/24 3:00:00 PM EDT, 2 tab, PO, Daily Start Date: 01/01/24 Status: Ordered tiZANidine 2 mg oral tablet Start: 06/16/24 12:50:00 PM EST, 1 tab, PO, Daily, Disp# 30 tab, Refills: 0, as needed for muscle pain, PRN: muscle spasm, Pharmacy: [facility] Start Date: 06/16/24 Status: Ordered traMADol 50 mg oral tablet Start: 06/16/24 12:52:00 PM EST, 1 tab, PO, qhs, Disp# 30 tab, as needed for muscle pain, PRN: as needed for pain, Pharmacy: [facility] Start Date: 06/16/24 Status: Ordered traZODone 50 mg oral tablet Start: 01/01/24 2:57:00 PM EDT, 1 tab, PO, qhs Start Date: 01/01/24 Status: Ordered Tylenol 500 mg oral tablet Start: 08/28/17 7:06:00 AM EST, 2 tab, PO, q6h, PRN: Fever/Mild Pain Start Date: 08/28/17 Status: Ordered Mental Status 08/17/24 Barriers to Learning one year None evide nt Mandatory Health Literacy Documentation Yes Health Literacy Communication Barriers N ever Primary Language Ecuadorean Problem List Condition Confirmation Course Effective Dates Status Health St atus Informant ADHD Confirmed Active CHRONIC PAIN Confirmed Active Constipated Confirmed Active Vitamin D deficiency Confirmed Active FAMILY HISTORY OF OTHER SPECIFIED MALIGNANT NEOPLASM 1 Confirmed Active Fibromyalgia Confirmed Active GERD with esophagitis Confirmed Active Gestational diabetes Confirmed Active IBS - Irritable bowel syndrome Confirmed Active Anxiety and depression Confirmed Active Multiple thyroid nodules 2 Confirmed 10/13/15 Active Tobacco user Confirmed Active Engages in vaping Confirmed Active Weight disorder Confirmed Active 1grandmother had skin cancer bridge of nose 2subcentimeter, ..."have benign imaging characteristics & none meet threshold for biopsy." Diagnosis Diagnosis Type Effective Dates Health Status Clinical Service Informant Hypertrophy, fat pad, infrapatellar Discharge Diagnosis 08/17/24 Hoffa disease of left knee Discharge Diagnosis 08/17/24 Procedures Procedure Date Related Diagnosis Body Site Status EGD - esophagogastroduodenos copy 1, 2, 3 08/12/24 Completed EGD - esophagogastroduodenos copy 4, 5, 6 01/21/24 Completed Colonoscopy 7 02/19/23 Completed Ultrasound/pelvic 8 02/07/23 Compl eted US scan of thyroid 9 11/08/22 Comp leted US scan of thyroid 10 10/25/22 Com pleted Laparoscopic female sterilization 11 07/09/[address] angiography of chest with contrast 12 05/01/21 Completed US scan of thyroid 13 03/15/20 Com pleted Hand X-ray 14 07/31/18 Completed MRI of brain without contrast 15 09/10/17 Completed Shoulder X-ray 16 05/12/15 Complet ed upper GI endoscopy 17 02/19/13 Com pleted Laparoscopy Completed [place] tooth Completed 1- Z-line regular, 36 cm from the incisors. - Normal esophagus. - Normal antrum. Biopsied. - Normal examined duodenum. - The examination was otherwise normal. 2DIAGNOSIS: Lab: Y92 Gastric antrum, biopsy: Superficial edema, congestion and foveolar hyperplasia compatible with reactive gastropathy-healingerosive gastritis. 3Followup with our GI office. 4Followup with Grace Herrera 5- No endoscopic esophageal abnormality to explain patient's dysphagia. Esophagus dilated. Dilated. - Non-bleeding gastric ulcer. Biopsied. - Normal examined duodenum. 6Gastric antrum, biopsy: Edema, congestion, and marked epithelial repair compatible with acute erosive gastritis. COMMENT: No Helicobacter pylori organisms are identified on an immunohistochemical stain for H. pylori. 7Impression: The rectum, sigmoid colon, descending colon, splenic flexure, transverse colon, hepaticflexure, ascending colon, cecum and recto-sigmoid colon are normal. No specimens collected. Repeat: 10 years 8Impression: No significant abnormality identified within the pelvis. 9Ultrasound-guided right thyroid nodule Impression: thyroid nodue FNA x2 10IMPRESSION: Multinodular thyroid gland which is increased in size and number within the right lobe compared theprior study. There are 2 similar-appearing solid nodules within the right lobe measuring 19 x 11 x 14 mm and 17 x 11 x 8 mm. Ultrasound- guided fine-needle aspiration recommended for these 2 dominant nodules. 11history of see scanned operative report 12impression: No acute abnormality and in particular no evidence of pulmonary embolism 13Multinodular thyroid, likely with several nodules mildly increased in size from comparison. No nodules meet criteria for FNA. 14unremarkable right hand radiographs 15No acute intracranial abnormality 16Negative study 17Hepatoform esophagitis was found in the upper third of the esophagus. Cytology was performed. Exam was otherwise without abnormality Social History Social History Type Response Tobacco Current every day sm oker, Cigarettes, Started age 18 Years. 1 Smoking Status Never smoked cigaret sherlyn Sex Female Sex Representation Female (finding) 13 cig/d. Ortho Outpt Note * Herickhoff, MD, Angelito K: MODIFY MD Escalante Paul K: MODIFY, MODIFY Event Display: Ortho Outpt Note Authored Date: [id number] Primary Care Provider MD Juwan, Ria Chief Complaint f/u L knee pain History of Present Illness Kortney Edwards presents today forf/u left knee pain, anterior and posterior. She states that her knee feels exactly how it did prior to her recent injection, and states the injection minimally helped alleviate her pain. Standing in one position and crouching make her pain worse. She states her knee feels very unstable and loose. Patient states she is unable topivot on this leg due to the pain. She continues to take Ibuprofen. Review of Systems A 14 point review of systems isavailable in the EMR. Physical Exam Focusing on the patient'sLEFT lower extremity: Sensation intact to light touch L3 to S1 dermatomes. ROM: 0 to 130 +Marjorie's referable to anterior medial knee - Medial or lateral joint line tenderness + Hoffa's test, anteromedially + Medial and lateralfacet tenderness - Tenderness in trochlea Mild tenderness to inferior pole of patella Diagnostic Results I again reviewed an MRI of the left knee from 11/2023 which showed small Anderson's Cyst. Small infrapatellar plica. Mild degeneration of medial meniscus. Assessment/Plan Impression: 39 year old female with left fat pad hypertrophy, possible medial meniscus tear Plan: We discussed possible surgical intervention if her pain worsens. She would like to proceed with surgical intervention after she is able to accumulate more PTO. Prescription given for Celebrex, 1-2x/day. Advised to cease taking Ibuprofen while taking Celebrex Modify activities Follow-up in 3 months Attestation Tika Galaviz,scribing for and in the presence of, Angelito Escalante, on this date,08/17/2024 13:58:49. Problem List/Past Medical History Ongoing ADHD Anxiety and depression CHRONIC PAIN Constipated DN - Dysplastic nevus| Status: Inactive Engages in vaping FAMILY HISTORY OF OTHER SPECIFIED MALIGNANT NEOPLASM Fibromyalgia Foot pain| Status: Inactive Fx metatarsal| Status: Inactive GERD with esophagitis Gestational diabetes IBS - Irritable bowel syndrome Low TSH level| Status: Inactive Lumbar radiculopathy| Status: Inactive Melanocytic nevus of trunk| Status: Inactive Multiple thyroid nodules Tobacco user Vitamin D deficiency Weight disorder Resolved Epigastric pain Tobacco user Procedure/Surgical History EGD - esophagogastroduodenoscopy| Service Date: 08/12/2024EGD - esophagogastroduodenoscopy| Service Date: 4Colonoscopy| Service Date: 02/19/2023Ultrasound/pelvic| Service Date: 02/07/2023US scan of thyroid| Service Date: 11/08/2022US scan of thyroid| Service Date: 10/26/19 23Laparoscopic female sterilization| Service Date: 07/09/2021T angiography of chest with contrast| Service Date: 05/01/2021US scan of thyroid| Service Date: 03/15/2020Hand X-ray| ServiceDate: 07/31/2018MRI of brain without contrast| Service Date: 09/10/2017Shoulder X-ray| Service Date: 05/12/2015upper GI endoscopy| Service Date: 02/19/2013Wisdom toothLaparoscopy Medications acetaminophen(Tylenol 500 mg oral tablet), 1000 mg= 2 tab, PO, q6h, PRN amphetamine-dextroamphetamine(Adderall 20 mg oral tablet), 20 mg= 1 tab, PO, qAM brexpiprazole(Rexulti 1 mg oral tablet), 2 mg= 2 tab, PO, Daily busPIRone(BuSpar 10 mg oral tablet), 20 mg= 2 tab, PO, bid clonazePAM(clonazePAM 1 mg oral tablet), 1 mg= 1 tab, PO, qhs famotidine(famotidine 20 mg oral tablet), 20 mg= 1 tab, PO, bid FLUoxetine(PROzac 40 mg oral capsule), 80 mg= 2 cap, PO, Daily gabapentin(gabapentin 300 mg oral capsule), See Instructions, 5 refills omeprazole(omeprazole 40 mg oral delayed release capsule), 40 mg= 1 cap, PO, Daily, 2 refills polyethylene glycol 3350(MiraLax) tiZANidine(tiZANidine 2 mg oral tablet), 2 mg= 1 tab, PO, Daily, PRN traMADol(traMADol 50 mg oral tablet), 50 mg= 1 tab, PO, qhs, PRN traZODone(traZODone 50 mg oral tablet), 50 mg= 1 tab, PO, qhs Allergies Adhesive bandagerash Aveloxswollen tongue CiproNausea Social History Smoking Status Never smoked cigarettes Alcohol - No Risk Use:Current Type:Beer Average drinks per episode in last year:2 Home/Environment - Comments: Three children -- 1 daughter and 2 sons (Nat, Porfirio, and oBb) one daughter. Tobacco - Medium Risk Use:Current every day smoker Type:Cigarettes Started at age:18Years - Comments: 3 cig/d. Family History Asthma: Mother. Cholecystectomy: Mother and Father. High Blood Pressure: Father. Hypertension: Mother and Father. Stroke: Mother. TIA: Mother. Health Status Family Member(s) Immunizations Vaccine Date Status influenza virus vaccine, inactivated 05/03/2020 Given influenza virus vaccine, inactivated 07/19/2019 Given influenza virus vaccine, inactivated 05/12/2015 Given influenza virus vaccine, inactivated 06/07/2013 Given diphtheria/tetanus/pertuss, acel (DTaP) 01/03/2009 Recorded Recommendations Health Maintenance Pending(in the next year) OverDue Cervical Cancer Screening due09/06/23and every 5year Adult Influenza Vaccine due01/26/24and every 1year Due Adult COVID-19 Vaccination due08/17/24Unknown Frequency Adult Folic Acid Supplementation due08/17/24and every 3year Adult Social Determinants of Health Screening due08/17/24Unknown Frequency Adult Tdap/Td Vaccine due08/17/24Unknown Frequency Breast Cancer Screening due08/17/24Unknown Frequency Hepatitis C Screening due08/17/24One-time only Due In Future Lipid Screening not due until10/10/24and every 1826day Body Mass Index not due until04/08/25and every 366day Satisfied(in the past 1 year) Satisfied Body Mass Index on03/12/24.Satisfied by EDITH Madrid Paul PHQ-9 After Positive PHQ-2 10/24/23.Satisfied by EDITH Madrid Paul Electronic Signature on File Electronically Reviewed/Signed by: Tika Parry Author Signature Dt/Tm:08/17/2024 02:00 PM Electronically Reviewed/Signed by: Angelito Escalante MD Cosigner Signature Dt/Tm: 08/17/2024 05:11PM Division of Sports Medicine MR Patient Care team information Care Team Personnel Name: DO Cross Kristen M Position: Physician - Family Med Member Role: Lifetime Relationship Address: [address] [place] [address] Name: MD Echeverria Dongsheng Position: Physician - Family Med Member Role: Primary Care Provider Address: [address] [place] [address] Name: DO Maki Sameer Position: Resident Member Role: Lifetime Relationship Address: [address] [place] [address] Name: Dennis Miramontes Position: HIS Supervisor_P Member Role: HIS Lifetime Care Team Related Persons Name: LOGAN SIMON Name: BARRON MARTINEZ
--- OUTSIDE RECORDS SUMMARY | 2024-10-16 06:24 | External Medical Summary ---
Author Name Unknown Address Unknown Organization : Laboratory Report Ordering Provider Test Date Status Javier Edwards 06/25/2024 07:52:00 Final Observation Date Value Abnormality Reference (Units ) Status Magnesium [Mass/volume] in Serum or Plasma 06/26/2024 03:00:00 1.8 1.5-2.5 (mg/dL) Final
Specimen Received d/t: 06/25/2024 22:56:00

Lab test performed by:
[facility]
[address]
[place] [id number]
Zia Larios MD Performing Location
--- OUTSIDE RECORDS SUMMARY | 2024-10-16 06:24 | External Medical Summary | Continuity of Care Document ---
Author Name Unknown Organization [id number] Address [address] [place] [id number] Care Team Providers Care Wax Pattern Repairer Name Role Phone Ria Echeverria Primary Care Physician [phone] Encounter [facility] [id number] Date(s): 05/25/24 - 05/25/24 [facility] [employer] [address] [id number] [facility] [address] [place], [place] [id number] Encounter Diagnosis Hypertrophy of infrapatellar fat pad(Discharge Diagnosis) - 05/25/24 Discharge Disposition: Home or Self Care Attending Physician: MD Escalante Paul K Allergies, Adverse Reactions, Alerts Substance Criticality Severity Reaction Reaction Severity Status Cipro Nausea Active Adhesive bandage rash Act mitzi Avelox swollen tongue Activ e Assessment and Plan Extracted from: Title:Angelito Escalante Author:Tika Parry te:05/25/24 Impression: 38 YearsoldF emalewith Left knee medialmeniscus tear (asymptomatic) and infrapatellar plica Plan: - She would like to proceed with cortisone injections during today's visit - Will avoid oral steroids at this timedue to history of stomach ulcers - Able to take Tylenol as needed for pain - Recommend icing as needed - Follow-up in 3 months The patient understood all my instructions and explanation; all their questions were satisfactorily addressed. Procedure: After verbal informed consent was obtained theanterolateral aspect ofthe leftknee was prepped with chlorhexidine and alcohol. Sterile ethylene chloride spray was used to numb the skin. Using sterile technique, I then injected theleft [id number] dexamethasone and 7mL of 0.5% ropivacaine without epi.Band-Aid was applied. No immediate complications. Patient tolerated the procedure well. Immunizations Given and Recorded Vaccine Date Status [...] PO, bid Start Date: 03/04/23 Status: Ordered clonazePAM 1 mg oral tablet [...] afternoon, and 2 caps PO qHS, Pharmacy: [id number] Start Date: 01/30/24 Status: Ordered MiraLax Start: 01/29/23 9:53:00 AM EDT Start Date: 01/29/23 Status: Ordered omeprazole 40 mg oral delayed release capsule Start: 01/30/24 5:09:00 PM EDT, 1 cap, PO, Daily, Disp# 30 cap, Refills: 2, Pharmacy: [id number] Start Date: 01/30/24 Status: Ordered PROzac 40 mg oral capsule Start: 10/24/23 12:50:00 PM EDT, 2 cap, PO, Daily Start Date: 10/24/23 Status: Ordered Rexulti 1 mg oral tablet Start: 01/01/24 3:00:00 PM EDT, 2 tab, PO, Daily Start Date: 01/01/24 Status: Ordered tiZANidine 2 mg oral tablet Start: 03/04/24 6:22:00 AM EDT, 1 tab, PO, q8h, Disp# 21 tab, Refills: 0, PRN: muscle spasm, Pharmacy: [id number] Start Date: 03/04/24 Stop Date: 03/11/24 Status: Ordered traMADol 50 mg oral tablet Start: 03/08/24 11:55:00 AM EDT, 1 tab, PO, qhs, Disp# 30 tab, Refills: 1, Dx: G89.29, PRN: as needed for pain, Pharmacy: [id number] Start Date: 03/08/24 Status: Ordered traZODone 50 mg oral tablet Start: 01/01/24 2:57:00 PM EDT, 1 tab, PO, qhs Start Date: 01/01/24 Status: Ordered Tylenol 500 mg oral tablet Start: 08/28/17 7:06:00 AM EST, 2 tab, PO, q6h, PRN: Fever/Mild Pain Start Date: 08/28/17 Status: Ordered Mental Status 05/25/24 Barriers to Learning one year None evide nt Mandatory Health Literacy Documentation Yes Health Literacy Communication Barriers N ever Primary Language Sammarinese Problem List Condition Confirmation Course Effective Dates [...] Effective Dates Health Status Clinical Service Informant Hypertrophy of infrapatellar fat pad Discharge Diagnosis 05/25/24 Procedures Procedure Date Related Diagnosis Body Site Status EGD - esophagogastroduodenos copy 1, 2, 3 01/21/24 Completed Colonoscopy 4 02/19/23 Completed Ultrasound/pelvic 5 02/07/23 Compl eted US scan of thyroid 6 11/08/22 Comp leted US scan of thyroid 7 10/25/22 Comp leted Laparoscopic female sterilization 8 07/09/[address] angiography of chest with contrast 9 05/01/21 Completed US scan of thyroid 10 03/15/20 Com pleted Hand X-ray 11 07/31/18 Completed MRI of brain without contrast 12 09/10/17 Completed Shoulder X-ray 13 05/12/15 Complet ed upper GI endoscopy 14 02/19/13 Com pleted Laparoscopy Completed [place] tooth Completed 1Followup with Grace Herrera 2- No endoscopic esophageal abnormality to explain patient's dysphagia. Esophagus dilated. Dilated. - Non-bleeding gastric ulcer. Biopsied. - Normal examined duodenum. 3Gastric antrum, biopsy: Edema, congestion, and marked epithelial repair compatible with acute erosive gastritis. COMMENT: No Helicobacter pylori organisms are identified on an immunohistochemical stain for H. pylori. 4Impression: The rectum, sigmoid colon, descending colon, splenic flexure, transverse colon, hepaticflexure, ascending colon, cecum and recto-sigmoid colon are normal. No specimens collected. Repeat: 10 years 5Impression: No significant abnormality identified within the pelvis. 6Ultrasound-guided right thyroid nodule Impression: thyroid nodue FNA x2 7IMPRESSION: Multinodular thyroid gland which is increased in size and number within the right lobe compared theprior study. There are 2 similar-appearing solid nodules within the right lobe measuring 19 x 11 x 14 mm and 17 x 11 x 8 mm. Ultrasound- guided fine-needle aspiration recommended for these 2 dominant nodules. 8history of see scanned operative report 9impression: No acute abnormality and in particular no evidence of pulmonary embolism 10Multinodular thyroid, likely with several nodules mildly increased in size from comparison. No nodules meet criteria for FNA. 11unremarkable right hand radiographs 12No acute intracranial abnormality 13Negative study 14Hepatoform esophagitis was found in the upper third of the esophagus. Cytology was performed. Exam was otherwise without abnormality Social History Social History Type Response Tobacco Current every day sm oker, Cigarettes, Started age 18 Years. 1 Smoking Status Never smoked cigaret sherlyn Sex Female Sex Representation Female (finding) 13 cig/d. Ortho Outpt Note * Tika Parry: PERFORM, MODIFY Event Display: Ortho Outpt Note Authored Date: [id number] Primary Care Provider MD Juwan, Ria Chief Complaint f/u L knee History of Present Illness [id number] yearoldFekeaton presents today forf/u left knee pain. She completed formal Pt, and has continued to do the stretches at home in [facility]. She has not noticed much improvement, and states that her pain is intermittent, currently a 7/10. The pain is an ache, with sharp pains on the sides of her knee. Standing worsens the pain, but walking is not as painful. Rest helpsalleviate pain. Patient typically does not wear brace unless extremely painful. Her last injection from 11/2023 helped alleviate pain for about a month. Voltaren gel does help sometimes. Sheis taking Gabapentin for fibromyalgia, and takes Tylenol which helps slightly. Review of Systems A 14 point review of systems isavailable in the EMR. Physical Exam Focusing on the patient'sLEFT lower extremity: Sensation intact to light touch ROM: 0 to130, with anterior knee pain at full active extension and flexion Marjorie's, causes anterior medial pain + Tenderness over medial> lateralpatella facet - Tenderness over inferior pull of patella +Tenderness over trochlea + Hoffas testanteromedially and anterolaterally - Medial or lateraljoint linetenderness Assessment/Plan Impression: 38 YearsoldFemalewith Left knee medialmeniscus tear (asymptomatic) and infrapatellar plica Plan: - She would like to proceed with cortisone injections during today's visit - Will avoid oral steroids at this timedue to history of stomach ulcers - Able to take Tylenol as needed for pain - Recommend icing as needed - Follow-up in 3 months The patient understood all my instructions and explanation; all their questions were satisfactorilyaddressed. Procedure: After verbal informed consent was obtained theanterolateral aspect ofthe leftknee was preppedwith chlorhexidine and alcohol. Sterile ethylene chloride spray was used to numb the skin. Using sterile technique, I then injected theleft [id number] dexamethasone and 7mL of 0.5% ropivacaine without epi.Band-Aid was applied. No immediate complications. Patient tolerated the procedure well. Attestation I,Tika Parry,scribing for and in the presence of, Angelito Escalante, on this date,05/25/2024 14:25:58. Problem List/Past Medical History Ongoing ADHD Anxiety [...] Procedure/Surgical History EGD - esophagogastroduodenoscopy| Service Date: 4Colonoscopy| Service Date: 02/19/2023Ultrasound/pelvic| Service Date: 02/07/2023US scan of thyroid| Service Date: 11/08/2022USscan of thyroid| Service Date: 10/25/2022Laparoscopic female sterilization| Service Date: 07/09/2021T angiography of chest with contrast| Service Date: 05/01/2021US scan of thyroid| ServiceDate: 03/15/2020Hand X-ray| Service Date: 07/31/2018MRI of brain without contrast| Service Date: [...] oral tablet), 2 mg= 1 tab, PO, q8h, PRN traMADol(traMADol 50 mg oral tablet), 50 mg= 1 tab, PO, qhs, PRN, 1 refills traZODone(traZODone 50 mg oral tablet), 50 mg= 1 tab, PO, qhs Allergies Adhesive bandagerash Aveloxswollen tongue CiproNausea Social History Smoking Status Current every day light smoker Alcohol - No Risk Use:Current Type:Beer Average drinks per episode in last year:2 Home/Environment - Comments: Three children -- 1 daughter and 2 sons (Nat, Porfirio, and Bob) one daughter. Tobacco - Medium Risk Use:Current [...] Screening due09/06/23and every 5year Adult Influenza Vaccine due01/25/24and every 1year Due Adult COVID-19 Vaccination due05/25/24Unknown Frequency Adult Folic Acid Supplementation due05/25/24and every 3year Adult Social Determinants of Health Screening due05/25/24Unknown Frequency Adult Tdap/Td Vaccine due05/25/24Unknown Frequency Hepatitis C Screening due05/25/24One-time only Pneumococcal Vaccine Adults and Adolescents with Chronic Illness due05/25/24One-time only Due In Future Lipid Screening not due until10/10/24and every 182day Body Mass Index not due until04/08/25and every 366day Satisfied(in the past 1 year) Satisfied Body Mass Index on03/12/24.Satisfied by EDITH Madrid Paul PHQ-9 After Positive PHQ-2 on10/24/23.Satisfied by EDITH Madrid Paul Electronic Signature on File Electronically Reviewed/Signed by: Tika Parry Author Signature Dt/Tm:05/25/2024 02:30 PM Electronically Reviewed/Signed by: Angelito Escalante MD Cosigner Signature Dt/Tm: 05/26/2024 12:34PM Division of Sports Medicine MR Patient Care team information Care Team Personnel Name: DO Cross Kristen M Position: Physician - Family Med Member Role: Lifetime Relationship Address: [address] [place] [address] Name: MD Juwan, Ria Position: Physician - Family Med Member Role: Primary Care Provider Address: [address] [place] [address] Name: DO Maki Sameer Position: Resident Member Role: Lifetime Relationship Address: [address] [place] [address] Name: Dennis Miramontes Position: HIS Supervisor_P Member Role: HIS Lifetime Care Team Related Persons Name: LOGAN SIMON Name: BARRNO MARTINEZ
--- OUTSIDE RECORDS SUMMARY | 2024-10-16 06:24 | External Medical Summary | Continuity of Care Document ---
Author Name Unknown Organization [address] Address [address] [place], [place] [id number] Care Team Providers Care Product Management Analyst Name Role Phone Ria Echeverria Primary Care Physician [phone] [facility]counter [id number] Date(s): 08/24/24 - 08/24/[address] [address] [phone] Encounter Diagnosis Body mass index [BMI] 27.0-27.9, adult(Discharge Diagnosis) - 08/24/24 Constipated(Discharge Diagnosis) - 08/24/24 GERD with esophagitis(Discharge Diagnosis) - 08/24/24 IBS - Irritable bowel syndrome(Discharge Diagnosis) - 08/24/24 Discharge Disposition: Home or Self Care Attending Physician: HOLA Herrera Kelli Jo Referring Physician: HOLA Herrera Kelli Jo Allergies, Adverse Reactions, Alerts Substance Criticality Severity Reaction Reaction Severity Status Cipro Nausea Active Adhesive bandage rash Act mitzi Avelox swollen tongue Activ e Assessment and Plan Extracted from: Title:Office Visit Note Author:HOLA Herrera Kell i Jo Date:08/24/24 1.Erosive gastritis 2.Long-term current use of proton pump inhibitor therapy -Patient presents for follow-up of erosive gastritisthat has resolved. She states that her abdominal pain has also resolved whether this was from healing of the gastritis or status post emergent cholecystectomyis unknown. -At this time we will begin to taper her to the lowest effective dose. She is currently on 40 mg of omeprazole; I have asked her to alternate this every other day with a 20 mg omeprazoleuntil she runs out of her current 40 mg dose that she hasat home. -Continue annual B12, magnesium, and vitamin D along withcreatinine. -If pain should recur; I would consider a trial of cholestyramine or colestipol for bile acid reflux. 3.Constipated -Greatly improved s/p cholecystectomy - Continue MiralaxPRN -Discussed trialing a second dose of MiraLAX on the days that she uses pain medications. 4.IBS - Irritable bowel syndrome - Will continue to follow. - No complaints today. [place] due 02/19/2033. GI follow up in 6 months, sooner if needed. I have spent 30 minutes in evaluation, education and documentation of this pt in both face to face and non-face to face activities. Immunizations Given and Recorded Vaccine Date Status [...] cap, PO, bid, Disp# 60 cap, Pharmacy: [id number] Start Date: 08/17/24 Status: Ordered clonazePAM [...] afternoon, and 2 caps PO qHS, Pharmacy: [id number] Start Date: 01/30/24 Status: Ordered MiraLax Start: 01/29/23 9:53:00 AM EDT Start Date: 01/29/23 Status: Ordered omeprazole 40 mg oral delayed release capsule Start: 01/30/24 5:09:00 PM EDT, 1 cap, PO, Daily, Disp# 30 cap, Refills: 2, Pharmacy: [id number] Start Date: 01/30/24 Status: Ordered PROzac 40 [...] for muscle pain, PRN: muscle spasm, Pharmacy: [id number] Start Date: 06/16/24 Status: Ordered traMADol 50 mg oral tablet Start: 06/16/24 12:52:00 PM EST, 1 tab, PO, qhs, Disp# 30 tab, as needed for muscle pain, PRN: as needed for pain, Pharmacy: [id number] Start Date: 06/16/24 Status: Ordered traZODone 50 mg oral tablet Start: 01/01/24 2:57:00 PM EDT, 1 tab, PO, qhs Start Date: 01/01/24 Status: Ordered Tylenol 500 mg oral tablet Start: 08/28/17 7:06:00 AM EST, 2 tab, PO, q6h, PRN: Fever/Mild Pain Start Date: 08/28/17 Status: Ordered Mental Status 08/24/24 Barriers to Learning one year None evide nt Mandatory Health Literacy Documentation Yes Health Literacy Communication Barriers N ever Primary Language Chadian Problem List Condition Confirmation Course Effective Dates [...] Effective Dates Health Status Clinical Service Informant Body mass index [BMI] 27.0-27.9, adult Discharge Diagnosis 08/24/24 Non-Specified Constipated Discharge Diagnosis 08/24/24 Non-Specified GERD with esophagitis Discharge Diagnosis 08/24/24 Non-Specified IBS - Irritable bowel syndrome Discharge Diagnosis 08/24/24 Non-Specified Procedures Procedure Date Related Diagnosis Body Site [...] endoscopy 17 02/19/13 Com pleted Laparoscopy Completed Reading tooth Completed 1- Z-line regular, 36 cm [...] was performed. Exam was otherwise without abnormality Vital Signs Most recent to oldest [Reference Range]: 1 Height 158 cm (08/24/24 2:51 PM) Patient Weight 68.6 kg (08/24/24 2:51 PM) Body Mass Index 27.48 kg/m2 (08/24/24 2:51 PM) Heart Rate 88 bpm (08/24/24 2:51 PM) Blood Pressure 114/78mmHg (08/24/24 2:51 PM) Cuff Pulse Pressure 36 mmHg (08/24/24 2:51 PM) Social History Social History Type Response Tobacco Current every day sm [place]ker, Cigarettes, Started age 18 Years. 1 Sm[facility] Status [facility] Female Sex Representation Female (finding) 13 cig/d. Gastroenterology Outpatient Note * HOLA Herrera, Grace Kat: PERFORM Event Display: Gastroenterology Outpt Note Authored Date: [id number] Chief Complaint F/U EGD History of Present Illness The patient is a pleasant 20-xfby-mldhhivbkptz presents today for follow up evaluation of IBS-Cand AP. [facility] past medical historyreviewed. Prior records: 02/19/2013EGD:Hepatoform esophagitis was found in the upper third of the esophagus. Cytology was performed. Exam was otherwise without abnormality 12/25/2022OV (Echeverria):Had labs yesterday - ordered by Endo. PAUL/MDD: on meds. stable overall. chronic pain: stable. on meds prn.no recreational drugs. Doing more exercise - walking 10,000 steps a day. tobacco: still vaping. constipation: chronic. stable. 01/29/2023OV ([facility]):no longer deal with her chronic constipationthat she has had since the ageof 6. She states that it is constant and only getting worse. She suffers from bloating, intermittent nausea, upper abdominal pain, lower abdominal cramping and pressures. She states thatat times she feels so backed up that she has rectal pressure and pain. She states that her upper abdominal pain is a stabbing poking hot sensationwhereas her lower abdominal is a cramping aching sensation. She rates these pains as a 47/10on average. Pains do resolve after a significant bowelmovement for several hours. Patient states that she typically has a [place] type I bowel movement anywhere from 0-3 times per week. Occasionally she will have a [place] type V or . She does state that she has had specks ofbright red blood on the toilet paper with known hemorrhoidal disease. Denies black tarry stools. 02/19/2023olo:Impression: The rectum, sigmoid colon, descending colon, splenic flexure, transverse colon, hepatic flexure, ascending colon, cecum and recto-sigmoid colon are normal. No specimens collected. Repeat: 10 years 03/04/2023OV ([facility]):completed [place] since last visit. She states thatshe felt that her colonoscopy would have helped herstart fresh. However within a few days she felt that she was backed up again. She states that she is back to only having a bowel movement every 3 to 4 days. She states that they arepencil thin to a slightly more formed. While there is no blood she still has significant straining and the feeling of incomplete evacuation. She is currently on 1 capful of MiraLAX and has not tapered thisas previously directed. She is also taking stool softeners. She states that she has had anno time to do the research on fiberfoods. However she has begun a fiber gummythat the directions say 3/day. She has not been tracking her overall fiber consumption. She currently drinks a minimum of (3) 22 ouncewaters per day occasionally more. 05/14/2023 OV ([facility]):discuss her constipation. She states thatsymptoms are much better as long as she recallsher MiraLAX. She is currently trying to take it 3 times a day. She states thatshe struggles to remember to take care of herself over top of her2 boys. She often finds herself in a "fiber fog". Patient is tearfulwhile discussingthe stressors. She states that shehas been having a [place] type III, IV or V bowel movementalmost dailythough it ranges from 0 to twice daily. She does still report some significant straining. She continues to focus on the other lifestyle modifications were discussed to her in the past. She states that her hyoscyamine has helped her with her abdominal pain. 06/05/2023labs:WBC 7.79, H&H 11.9/35.1, PLT 239, no left shift, PT/INR 10.2/0.9, APTT 28.9, BMP unremarkable, AST 22, ALT 22, alk phos 71, T. bili 0.4 06/26/2023US:IMPRESSION: Cholelithiasis without sonographic evidence of acute cholecystitis. 07/14/2023are Message:I have been having episodes of biliary colic with one episode involving "cola-like" urine and a mild fever along with tremendous pain that I was in the ER for. I had an ultrasound done a few weeks back and it revealed that I have "numerous" gallstones in my gallbladder. Ihave episodes about once a week. So far the one about a month ago was the worst. 07/14/2023 OV ([facility]):Patient returns today stating that her IBSC has been much better. She is having a daily to every other day [place] type III bowel movementby using 1-1/2 capfuls of MiraLAX daily. Her straining is also improved and she denies melena, hematochezia, ormucus in her stools. She does state thatjust shy of a month agoshe had a horrificepigastric abdominal painthat sent her to the emergency room. She states thatthere were several people ahead of her soshe ended up leaving without medical intervention but was experiencing Coca-Cola like urineand a mild fever. She states that that only lasted for a day or so before it resolved. By the [facility] she was asymptomatic. She describes this episode asexcessive gas bothorally and rectally. She states that her chest felt like it was being ripped open from the bottom. Any eating made her symptoms worse. She could not find a position to get comfortable. When it would come on it would last for 6 to 7 hours at a time. 01/21/2024EGD:- No endoscopic esophageal abnormality to explain patient's dysphagia. Esophagus dilated. Dilated. - Non-bleeding gastric ulcer. Biopsied. - Normal examined duodenum. Path: Gastric antrum, biopsy: Edema, congestion, and marked epithelial repair compatible with acute erosive gas tritis. COMMENT: No Helicobacter pylori organisms are identified on an immunohistochemical stain for H. pylori. 04/07/2024 OV ([facility]):Patient returns today stating that most of her symptomshave resolved. She states she only has some intermittent mild epigastricpain. She continues on her40 mg of omeprazole daily. She states for the most part her quality of life is much improved. She states even her prior constipationis better secondary to an emergent cholecystectomyJanuary 9 of this year. She states at this point she is only using the MiraLAX about once a week. She states thatthe majority of the epigastric discomfort she was having is resolved after the cholecystectomy. Shecurrently takes her omeprazole around the 830 to 9 AM markon an empty stomach. She denies any other GI complaints today. 06/25/2024Labs: Mg 1.8, Vit [id number] 08/12/2024EGD:- Z-line regular, 36 cm from the incisors. - Normal esophagus. - Normal antrum. Biopsied. - Normal examined duodenum. - The examination was otherwise normal. Path:Gastric antrum, biopsy: Superficial edema, congestion and foveolar hyperplasia compatible with reactive gastropathy- healing erosive gastritis. 08/24/2024OV ([facility]):Patient returns today for follow up after completing a 6-month recall EGD for gastric erosion. She states that her symptoms remain well-controlled on 40 mg of omeprazole.She has reduced her Pepcid from twice daily to once daily before bed. She never did require the Carafate that we had previously discussed. She denies any breakthrough acid reflux symptoms currently. She states that she still has some of the dysphagia that she previously had but states that she knows there is not much going on there given that we had done a barium swallow and her EGD. She states she is curious if it is partially because of her known goiter. She denies nausea, vomiting or abdominal pain. She states that her bowel habits are much better than prior with the use of herMiraLAX though she still will have occasional flares of alternating diarrhea and constipation. She has not paid close attention to if these correspond with the use of her pain medications. She has no additional GI complaints today. Abdominal surgical history: Cholecystectomy 07/2023,laparoscopicsalpingectomy,exploratory laparoscopy Social History: Tobacco: Quit cigarettesage 35,26pack-year history, currently vaping daily(goes through 5000 puff vapetwice monthly ETOH: 1 beer or less per month Recreational Drug use including Marijuana: Tried Delta 8 with no improvement in the past, Now usingmed marijuana Employed by [employer] [facility] [employer] Family:, 3 children Family History: Deniesfamilyhistory of colorectal cancer,IBD, IBS, pancreatic disease, celiac disease Paternal and maternal grandfathers with liver disease per patient2/2 ETOH consumption. No further complaints or concerns today. Physical Exam Vitals & Measurements HR:88(Monitored) BP:114/78 SpO2:99% HT:158cm WT:68.600kg(Dosing) WT:68.6kg BMI:27.48 General:Alert and oriented, No acute distress, appears stated age HENT:Normocephalic, normal hearing Respiratory: Respiration are non-labored, pt speaking in complete sentences,and no evidence of respiratory distress is noted Integumentary:Exposed skin viewable is dry and intact Psychiatric:Cooperative, appropriate mood & affect, Normal judgement Assessment/Plan 1.Erosive gastritis 2.Long-term current use of proton pump inhibitor therapy -Patient presents for follow-up of erosive gastritisthat has resolved. She states that her abdominal pain has also resolved whether this was from healing of the gastritis or status post emergent cholecystectomyis unknown. -At this time we will begin to taper her to the lowest effective dose. She is currently on 40 mg of omeprazole; I have asked her to alternate this every other day with a 20 mg omeprazoleuntna maldonado out of her current 40 mg dose that she hasat home. -Continue annual B12, magnesium, and vitamin D along withcreatinine. -If pain should recur; I would consider a trial of cholestyramine or colestipol for bile acid reflux. 3.Constipated -Greatly improved s/p cholecystectomy - Continue MiralaxPRN -Discussed trialing a second dose of MiraLAX on the days that she uses pain medications. 4.IBS - Irritable bowel syndrome - Will continue to follow. - No complaints today. [place] due 02/19/2033. GI follow up in 6 months, sooner if needed. I have spent 30 minutes in evaluation, education and documentation of this pt in both face to face and non-face to face activities. Problem List/Past Medical History Ongoing ADHD Anxiety [...] tablet), 20 mg= 2 tab, PO, bid celecoxib(CeleBREX 100 mg oral capsule), 100 mg= 1 cap, PO, bid clonazePAM(clonazePAM 1 mg oral tablet), [...] due01/26/24and every 1year Due Adult COVID-19 Vaccination due08/24/24Unknown Frequency Adult Folic Acid Supplementation due08/24/24and every 3year Adult Social Determinants of Health Screening due08/24/24Unknown Frequency Adult Tdap/Td Vaccine due08/24/24Unknown Frequency Breast Cancer Screening due08/24/24Unknown Frequency Hepatitis C Screening due08/24/24One-time only Pneumococcal Vaccine Adults and Adolescents with Chronic Illness due08/24/24One-time only Due In Future Lipid Screening not due until10/10/24and every 1826 Satisfied(in the past 1 year) Satisfied Body Mass Index on08/24/24.Satisfied by EDITH Santos Bobbi PHQ-9 After Positive PHQ-2 on10/24/23.Satisfied by EDITH Madrid Paul Electronic Signature on File CC: Ria Echeverria MD [address] [place] [address] Electronically Reviewed/Signed by: Grace Herrera PA-C Author Signature Dt/Tm:08/24/2024 03:26 PM Division of Gastroenterology KRISTI Patient Care team information Care Team Personnel Name: DO Cross Kristen M Position: Physician - Family Med Member Role: Lifetime Relationship Address: [address] [place] [address] [place] Name: MD Echeverria Dongsheng Position: Physician - Family Med Member Role: Primary Care Provider Address: [address] [place] [address] [place] Name: DO Maki Sameer Position: Resident Member Role: Lifetime Relationship Address: [address] [place] [address] [place] Name: Dennis Miramontes Position: HIS Supervisor_P Member Role: HIS Lifetime Care Team Related Persons Name: LOGAN SIMON Name: BARRON MARTINEZ
--- OUTSIDE RECORDS SUMMARY | 2024-10-16 06:24 | External Medical Summary | Continuity of Care Document ---
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 Filter Tank Tender Name Role Phone Ria Echeverria Primary Care Physician [phone] Encounter [facility] [id number] Date(s): 09/08/24 - 09/08/24 [facility] [address] [place] [address] [phone] Encounter Diagnosis Engages in vaping(Discharge Diagnosis) - 09/08/24 GERD with esophagitis(Discharge Diagnosis) - 09/08/24 Body mass index [BMI] 26.0-26.9, adult(Discharge Diagnosis) - 09/08/24 Low vitamin D level(Discharge Diagnosis) - 09/08/24 Anxiety and depression(Discharge Diagnosis) - 09/08/24 CHRONIC PAIN(Discharge Diagnosis) - 09/08/24 Low ferritin(Discharge Diagnosis) - 09/08/24 Multiple thyroid nodules(Discharge Diagnosis) - 09/08/24 Discharge Disposition: Home or Self Care Attending Physician: MD Echeverria Dongsheng Encounter Type: Clinic Allergies, Adverse Reactions, Alerts Substance Criticality Severity Reaction Reaction Severity Status Cipro Nausea Active Adhesive bandage rash Act mitzi Avelox swollen tongue Activ e Assessment and Plan Extracted from: Title:Office Visit Note Author:MD Echeverria Dongsh eng Date:09/08/24 1.CHRONIC PAIN STATUS: Chronic stable: Chronic uncontrolled: x Acute uncomplicated: Acute illness with systemic symptoms: Undiagnosed new problems with uncertain prognosis: Chronic illnesses with exacerbation, progression, or side effects of treatment: 1 acute complicated injury: DATA: Review of prior external note(s) from each unique source: Review of the result(s) of each unique test: cbc, cmp, esr, pth, ferritin, tsh Ordering of each unique test: Assessment requiring independent historian(s): GOAL: Reduce symptoms PLAN: Diagnosed in 2006 by Rheum in [place]. Tried Cymbalta and Flexeril.Saw pain management.f/u psychiatry and rheum - hypermobility. PT causes more pain. Tizanidine prnplus Tramadol prn helps. Refilled. Advised not to use when taking Clonazepam.f/u ortho. FMLA form was done. stopped medical MJ. Increasevit D. Exercise. [id number] qAm. 2.Anxiety and depression STATUS: Chronic, stable DATA: Labs reviewed: TSH GOAL: maintain stability PLAN: Cymbalta - did not help. On Rexulti,buspar, prozac.prntrazodone, and prn clonazepam. on Adderall for ADHD. f/u psychiatry. Exercise 3.Engages in vaping STATUS: Chronic,vaping DATA: Reviewed labs GOAL: Resolution PLAN: assessed and advised. cut down. declined med 4.GERD with esophagitis STATUS: Chronic stable: x Chronic uncontrolled: Acute uncomplicated: Acute illness with systemic symptoms: Undiagnosed new problems with uncertain prognosis: Chronic illnesses with exacerbation, progression, or side effects of treatment: 1 acute complicated injury: DATA: Review of prior external note(s) from each unique source: Review of the result(s) of each unique test: Ordering of each unique test: Assessment requiring independent historian(s): GOAL: Resolution PLAN: continue omeprazole 40mg - starting 20mg alternating dose. OnfamotidineBID. f/u GI 5.Low vitamin D level STATUS: Chronic stable: Chronic uncontrolled: x Acute uncomplicated: Acute illness with systemic symptoms: Undiagnosed new problems with uncertain prognosis: Chronic illnesses with exacerbation, progression, or side effects of treatment: 1 acute complicated injury: DATA: Review of prior external note(s) from each unique source: Review of the result(s) of each unique test: vit D Ordering of each unique test: Assessment requiring independent historian(s): GOAL: Resolution PLAN: increase vit D1,000 units daily. 6.Low ferritin STATUS: Chronic stable: Chronic uncontrolled: x Acute uncomplicated: Acute illness with systemic symptoms: Undiagnosed new problems with uncertain prognosis: Chronic illnesses with exacerbation, progression, or side effects of treatment: 1 acute complicated injury: DATA: Review of prior external note(s) from each unique source: Review of the result(s) of each unique test: cbc, ferritin Ordering of each unique test: Assessment requiring independent historian(s): GOAL:Resolution PLAN: still has heavy menses. check ferritin. Will consider TVUS if still low. OTC iron caused constipation. 7.Multiple thyroid nodules STATUS: Chronic stable: Chronic uncontrolled: x Acute uncomplicated: Acute illness with systemic symptoms: Undiagnosed new problems with uncertain prognosis: Chronic illnesses with exacerbation, progression, or side effects of treatment: 1 acute complicated injury: DATA: Review of prior external note(s) from each unique source: Dr. Sara dove Review of the result(s) of each unique test: tsh Ordering of each unique test: Assessment requiring independent historian(s): GOAL:Resolution PLAN: is considering thyroidectomy. call prn. f/u4 mos Time spent: Pre-visit planning/chart review: 5 minutes [id number] visit: 37 minutes Post-visit documentation: minutes Care coordination: minutes Time spent on disease management/counseling in addition to CPE/AWV/WCC: minutes Total visit time: 42 minutes Immunizations Given and Recorded Vaccine Date Status [...] Refills: 0 Start Date: 01/01/24 Status: Ordered Repeat number: 1 BuSpar 10 mg oral tablet Start: 03/04/23 1:32:00 PM EDT, 2 tab, PO, bid Start Date: 03/04/23 Status: Ordered Repeat number: 1 CeleBREX 100 mg oral capsule Start: 08/17/24 1:58:00 PM EST, 1 cap, PO, bid, Disp# 60 cap, Pharmacy: [facility] Start Date: 08/17/24 Status: Ordered Quantity: 60.0 Unit: cap Repeat number: 1 Indication: Other specified metabolic disorders clonazePAM 1 mg oral tablet Start: 10/24/23 12:48:00 PM EDT, 1 tab, PO, qhs Start Date: 10/24/23 Status: Ordered Repeat number: 1 famotidine 20 mg oral tablet Start: 02/13/24 1:47:00 PM EDT, 1 tab, PO, bid Start Date: 02/13/24 Status: Ordered Repeat number: 1 gabapentin 300 mg oral capsule Start: 01/30/24 5:08:00 PM EDT, See Instructions, Disp# 120 cap, Refills: 5, 1 cap PO qAm, and 2 capsPO qHS, Pharmacy: [facility] [address] Start Date: 01/30/24 Status: Ordered Quantity: 120.0 Unit: cap Repeat number: 6 MiraLax Start: 01/29/23 9:53:00 AM EDT Start Date: 01/29/23 Status: Ordered Repeat number: 1 omeprazole 40 mg oral delayed release capsule Start: 01/30/24 5:09:00 PM EDT, 1 cap, PO, Daily, Disp# 30 cap, Refills: 2, Pharmacy: [facility] [address] Start Date: 01/30/24 Status: Ordered Quantity: 30.0 Unit: cap Repeat number: 3 PROzac 40 mg oral capsule Start: 10/24/23 12:50:00 PM EDT, 2 cap, PO, Daily Start Date: 10/24/23 Status: Ordered Repeat number: 1 Rexulti 3 mg oral tablet Start: 09/08/24 2:07:00 PM EST, 1 tab, PO, Daily Start Date: 09/08/24 Status: Ordered Repeat number: 1 tiZANidine 2 mg oral tablet Start: 09/08/24 2:18:00 PM EST, 1 tab, PO, Daily, Disp# 30 tab, Refills: 0, as needed for muscle pain, PRN: muscle spasm, Pharmacy: [facility] [address] Start Date: 09/08/24 Status: Ordered Quantity: 30.0 Unit: tab Repeat number: 1 traMADol 50 mg oral tablet Start: 09/08/24 2:16:00 PM EST, 1 tab, PO, qhs, Disp# 30 tab, as needed for muscle and joint pain, PRN: as needed for pain, Pharmacy: [id number] Start Date: 09/08/24 Status: Ordered Quantity: 30.0 Unit: tab Repeat number: 1 Indication: Other chronic pain traZODone 50 mg oral tablet Start: 01/01/24 2:57:00 PM EDT, 1 tab, PO, qhs, as needed for sleep Start Date: 01/01/24 Status: Ordered Repeat number: 1 Tylenol 500 mg oral tablet Start: 08/28/17 7:06:00 AM EST, 2 tab, PO, q6h, PRN: Fever/Mild Pain Start Date: 08/28/17 Status: Ordered Repeat number: 1 Mental Status 09/08/24 Barriers to Learning one year None evide nt Mandatory Health Literacy Documentation Yes Health Literacy Communication Barriers N ever Primary Language Mohawk Problem List Condition Confirmation Course Effective Dates [...] Clinical Service Informant Body mass index [BMI] 26.0-26.9, adult Discharge Diagnosis 09/08/24 Non-Specified Low vitamin D level Discharge Diagnosis 09/08/24 Non-Specified Low ferritin Discharge Diagnosis 09/08/24 Non-Specified Anxiety and depression Discharge Diagnosis 09/08/24 Non-Specified Multiple thyroid nodules Discharge Diagnosis 09/08/24 Non-Specified CHRONIC PAIN Discharge Diagnosis 09/08/24 Non-Specified Engages in vaping Discharge Diagnosis 09/08/24 Non-Specified GERD with esophagitis Discharge Diagnosis 09/08/24 Non-Specified Procedures Procedure Date Related Diagnosis Body [...] endoscopy 17 02/19/13 Com pleted Laparoscopy Completed [place] tooth Completed 1- Z-line regular, 36 cm [...] oldest [Reference Range]: 1 Height 158 cm (09/08/24 1:53 PM) Patient Weight 65.6 kg (09/08/24 1:53 PM) Body Mass Index 26.28 kg/m2 (09/08/24 1:53 PM) Heart Rate 69 bpm (09/08/24 1:53 PM) Respiratory Rate 12 br/min (09/08/24 1:53 PM) Blood Pressure 108/72mmHg (09/08/24 1:53 PM) Cuff Pulse Pressure 36 mmHg (09/08/24 1:53 PM) Social History Social History Type Response Tobacco Current every day sm oker, Cigarettes, Started age 18 Years. 1 Smoking Status Current every day leena jakeevelin smoker Sex Female Sex Representation Female (finding) 13 cig/d. FCM Outpt Note * MD Juwan, Ria: PERFORM Event Display: FCM Outpt Note Authored Date: [id number] Chief Complaint 2 month F/U med review History of Present Illness MDD: on meds. overall stable. Chronic pain: on meds. intermittent flare up - fluctuates. Took 13 days offin the past 6 months. knee pain: feels worse. saw ortho and was recommended a procedure. GERD: on med daily. stable. active at work and home. Review of Systems No fever/chills. No headache. No respiratory symptoms. No chest pain/shortness of breath. No nausea/vomiting. No abdominal pain. No change with bowels. No urinary symptoms. Other systems reviewed andare neg. Physical Exam Vitals & Measurements HR:69(Monitored) RR:12 BP:108/72 SpO2:99% HT:158cm WT:65.600kg(Dosing) WT:65.6kg BMI:26.28 PHQ2 Data(Data Documented on:09/08/2024 13:53) Emotional health assessment NEGATIVE General: No acute distress. Nontoxic. Head:Normocephalic, Atraumatic. Neck:Supple, Non-tender, mild thyromegaly, No jugular venous distention, No lymphadenopathy Respiratory:Lungs are clear to auscultation, Respirations non-labored, Breath sounds equal JOSEPH. Cardiovascular:Normal rate, Regular rhythm, No murmur, Rubs, gallops. Gastrointestinal:Soft, Non-distended, Normal bowel sounds. Musculoskeletal:no pitting edema Neurologic:Alert, Oriented, No focal deficits. Psychiatric:Cooperative, Appropriate mood & affect. Assessment/Plan 1.CHRONIC PAIN STATUS: Chronic stable: Chronic uncontrolled: x Acute uncomplicated: Acute illness with systemic symptoms: Undiagnosed new problems with uncertain prognosis: Chronic illnesses with exacerbation, progression, or side effects of treatment: 1 acute complicated injury: DATA: Review of prior external note(s) from each unique source: Review of the result(s) of each unique test: cbc, cmp, esr, pth, ferritin, tsh Ordering of each unique test: Assessment requiring independent historian(s): GOAL: Reduce symptoms PLAN: Diagnosed in 2006 by Rheum in [place]. Tried Cymbalta and Flexeril.Saw pain management.f/u psychiatry and rheum - hypermobility. PT causes more pain. Tizanidine prnplus Tramadol prn helps. Refilled. Advised not to use when taking Clonazepam.f/u ortho. FMLA form was done. stopped medical MJ. Increasevit D. Exercise. [id number] qAm. 2.Anxiety and depression STATUS: Chronic, stable DATA: Labs reviewed: TSH GOAL: maintain stability PLAN: Cymbalta - did not help. On Rexulti,buspar, prozac.prntrazodone, and prn clonazepam. onAdderall for ADHD. f/u psychiatry. Exercise 3.Engages in vaping STATUS: Chronic,vaping DATA: Reviewed labs GOAL: Resolution PLAN: assessed and advised. cut down. declined med 4.GERD with esophagitis STATUS: Chronic stable: x Chronic uncontrolled: Acute uncomplicated: Acute illness with systemic symptoms: Undiagnosed new problems with uncertain prognosis: Chronic illnesses with exacerbation, progression, or side effects of treatment: 1 acute complicated injury: DATA: Review of prior external note(s) from each unique source: Review of the result(s) of each unique test: Ordering of each unique test: Assessment requiring independent historian(s): GOAL: Resolution PLAN: continue omeprazole 40mg - starting 20mg alternating dose. OnfamotidineBID. f/u GI 5.Low vitamin D level STATUS: Chronic stable: Chronic uncontrolled: x Acute uncomplicated: Acute illness with systemic symptoms: Undiagnosed new problems with uncertain prognosis: Chronic illnesses with exacerbation, progression, or side effects of treatment: 1 acute complicated injury: DATA: Review of prior external note(s) from each unique source: Review of the result(s) of each unique test: vit D Ordering of each unique test: Assessment requiring independent historian(s): GOAL: Resolution PLAN: increase vit D1,000 units daily. 6.Low ferritin STATUS: Chronic stable: Chronic uncontrolled: x Acute uncomplicated: Acute illness with systemic symptoms: Undiagnosed new problems with uncertain prognosis: Chronic illnesses with exacerbation, progression, or side effects of treatment: 1 acute complicated injury: DATA: Review of prior external note(s) from each unique source: Review of the result(s) of each unique test: cbc, ferritin Ordering of each unique test: Assessment requiring independent historian(s): GOAL:Resolution PLAN: still has heavy menses. check ferritin. Will consider TVUS if still low. OTC iron caused constipation. 7.Multiple thyroid nodules STATUS: Chronic stable: Chronic uncontrolled: x Acute uncomplicated: Acute illness with systemic symptoms: Undiagnosed new problems with uncertain prognosis: Chronic illnesses with exacerbation, progression, or side effects of treatment: 1 acute complicated injury: DATA: Review of prior external note(s) from each unique source: Dr. Sara dove Review of the result(s) of each unique test: tsh Ordering of each unique test: Assessment requiring independent historian(s): GOAL:Resolution PLAN: is considering thyroidectomy. call prn. f/u4 mos Time spent: Pre-visit planning/chart review: 5 minutes Pukx-[id number] visit: 37 minutes Post-visit documentation: minutes Care coordination: minutes Time spent on disease management/counseling in addition to CPE/AWV/WCC: minutes Total visit time: 42 minutes Problem List/Past Medical History Ongoing ADHD Anxiety and depression CHRONIC PAIN Constipated DN - Dysplastic nevus| Status: Inactive Engages in vaping FAMILY HISTORY OF OTHER SPECIFIED MALIGNANT NEOPLASM Fibromyalgia Foot pain| Status: Inactive Fx metatarsal| Status: Inactive GERD with esophagitis Gestational diabetes IBS - Irritable bowel syndrome Lumbar radiculopathy| Status: Inactive Melanocytic nevus of trunk| Status: Inactive Multiple thyroid nodules Tobacco user Vitamin D deficiency Weight disorder Resolved Epigastric pain Low TSH level Tobacco user Procedure/Surgical History EGD - esophagogastroduodenoscopy| [...] 20 mg= 1 tab, PO, qAM brexpiprazole(Rexulti 3 mg oral tablet), 3 mg= 1 tab, PO, Daily busPIRone(BuSpar 10 mg oral [...] Started at age:18Years - Comments: 3 cig/d. Intake (IView) Smoking History Cigarette smoker: Current every day light smoker Tobacco Product Use: Never used other tobacco products What is/was avg daily use when smoking: .25 (5 cigarettes) How many total years have you smoked: 15 Total pack years: 3.75 SHX E-Cigarette Type: Nicotine infused SHX E-Cigarette Use: Use, within last 90 days Family History Asthma: Mother. Cholecystectomy: Mother and [...] the next year) OverDue Cervical Cancer Screening due09/07/23and every 1826day Adult Influenza Vaccine due01/26/24and every 1year Due Adult COVID-19 Vaccination due09/08/24Unknown Frequency Adult Folic Acid Supplementation due09/08/24and every 3year Adult Social Determinants of Health Screening due09/08/24Unknown Frequency Adult Tdap/Td Vaccine due09/08/24Unknown Frequency Breast Cancer Screening due09/08/24Unknown Frequency Hepatitis C Screening due09/08/24One-time only Pneumococcal Vaccine Adults and Adolescents with Chronic Illness due09/08/24One-time only Due In Future Lipid Screening not due until10/10/24and every 1826day Satisfied(in the past 1 year) Satisfied Body Mass Index on09/08/24.Satisfied by EDITH Madrid Paul PHQ-9 After Positive PHQ-2 on10/24/23.Satisfied by EDITH Madrid Paul Electronic Signature on File Electronically Reviewed/Signed by: Ria Echeverria MD Author Signature Dt/Tm:09/08/2024 02:36 PM Department of Family Medicine DJ Patient Care team information Care Team Personnel Name: DO Cross Kristen M Position: Physician - Family Med Member Role: Lifetime Relationship Address: [address] [place] [address], [address] Telecom: [phone] Name: MD Echeverria Dongsheng Position: Physician - Family Med Member Role: Primary Care Provider Address: [address] Telecom: [phone] Name: DO Maki Sameer Position: Resident Member Role: Lifetime Relationship Address: [address] Telecom: [phone] Name: Dennis Miramontes Position: HIS Supervisor_P Member Role: HIS Lifetime Care Team Related Persons Name: LOGAN SIMON Name: BARRON MARTINEZ Insurance Providers Guarantor name: MAGDI MARTINEZ Health Plan Information #: 1 Payer: [employer] Member Number: [id number] Policy Number: NA Group Number: [id number] Health Plan Information #: 2 Payer: SELF PAY Member Number: NA Policy Number: NA Group Number: NA Health Plan Information #: 3 Payer: [employer] Member Number: [id number] Policy Number: NA Group Number: NA Health Plan Information #: 4 Payer: [employer] PCP ONLY Member Number: NA Policy Number: NA Group Number: NA
--- OUTSIDE RECORDS SUMMARY | 2024-10-16 06:24 | External Medical Summary | Summary of Care ---
Author Name Unknown Organization [facility] Address [address] [place] [address] Phone [phone] Care Team Providers Care Livestock Exhibitor Name Role Phone Ria Echeverria MD Primary Care Provider [phone] Reason for Visit * Reason Comments Rheum Follow Up Recheck fibromyalgia Encounter Details Date Type Department Care Team (Late st Contact Info) Description 06/17/2024 1:20 PM EST Office Visit Rheumatology [place] [id number] [place] [address] Roberto Camilo MD [facility] [address] Fibromyalgia*; Cervicalgia Allergies Active Allergy Reactions Criticality Noted Date Comments Moxifloxacin 06/18/2022 " rash in mouth" Ciprofloxacin 06/18/2022 "mood swings" documented as of this encounter (statuses as of 06/17/2024) Medications traMADol HCl 50 MG Oral Tablet (Ultram) As needed 2 Active busPIRone HCl 15 MG Oral Tablet (Buspar) 1 twice daily 2 Active Tylenol PM Extra Strength 500-25 MG Oral Tablet (diphenhydrAMI NE-APAP (sleep)) Take 1 Tablet by mouth 3 times a day as needed for Itching. Active Omeprazole 40 MG Oral Capsule Delayed Release (PriLOSEC) 3 Active Amphetamine-De xtroamphet ER 25 MG Oral Capsule Extended Release 24 Hour (Adderall XR) 1 daily 4 Active PROzac 40 MG Oral Capsule 2 Capsules. 2 daily 4 Active traZODone HCl 50 MG Oral Tablet (Desyrel) 1 Tablet. As needed 4 Active Rexulti 3 MG Oral Tablet 1 daily 4 Active tiZANidine HCl 2 MG Oral Tablet (Zanaflex) As needed 4 Active Amoxicillin 500 MG Oral Capsule (Amoxil) 1 three times daily 4 Active clonazePAM 1 MG Oral Tablet (KlonoPIN) 1 Tablet. As needed 4 Active Gabapentin 300 MG Oral Capsule (Neurontin) 1 in Am, 2 at bedtime 4 Active LORazepam 0.5 MG Oral Tablet (Ativan) As needed 2 024 Discontinued Desvenlafaxine Succinate ER 50 MG Oral Tablet Extended Release 24 Hour (Pristiq) 1 daily 2 024 Discontinued Amitriptyline HCl 25 MG Oral Tablet (Elavil) 1 Tablet. 3 024 Discontinued buPROPion HCl ER (XL) 300 MG Oral Tablet Extended Release 24 Hour (Wellbutrin XL) 3 024 Discontinued Gabapentin 100 MG Oral Capsule (Neurontin) Start: 04/20/23 14:01:00 EDT, See Instructions , Disp# 60 cap, Refills: 2, Take 1 capsule by mouth twice daily, Pharmacy: [id number] Discontinued Meclizine HCl 25 MG Oral Tablet (Antivert) 3 024 Discontinued documented as of this encounter (statuses as of 06/17/2024) Active Problems Problem Noted Date Diagnosed Date Chronic pain 03/26/2023 Irritable bowel syndrome 03/26/2023 Vitamin D deficiency 03/26/2023 Anxiety and depression 05/23/2022 PTSD (post-traumatic stress disorder) 05/23/2022 Fibromyalgia 04/26/2022 Multinodular goiter 10/13/2015 Overview (06/25/2023): subcentimeter, ..."have benign imaging characteristics & none meet threshold for biopsy." documented as of this encounter (statuses as of 06/17/2024) Social History Tobacco Use Types Packs/Day Years Used Date Smoking Tobacco: Every Day Vaporizer Smokeless Tobacco: Never Alcohol Use Standard Drinks/Week Comments Yes 0 (1 standard drink = 0.6 oz pur e alcohol) occ Comments No Sex and Gender Information Value Date Recorded Sex Assigned at Not on file Legal Sex Female 6:13 AM EST Gender Identity Not on file Sexual Orientation Not on file documented as of this encounter Last Filed Vital Signs Vital Sign Reading Time Taken Comments Blood Pressure - - Pulse - - Temperature 36.3 C (97.3 F) 06/17/2024 1:16 PM ES T Respiratory Rate - - Oxygen Saturation - - Inhaled Oxygen Concentration - - Weight 64.9 kg (143 lb) 06/17/2024 1:16 PM EST Height - - Body Mass Index - - documented in this encounter Progress Notes * Roberto Camilo MD - 06/17/2024 1:20 PM EST Subjective: Patient seen today for further follow up evaluation of fibromyalgia. Since the last visit she has had some increasing neck pain that is more at the occiput over the last 2 weeks. No injury. She has not had neck imaging. Has had US of the thyroid. She has had thyroid biopsies in the past that were normal. She also has pains in her hands, knees, feet. 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 She is no longer taking NSAIDs because she had a stomach ulcer. She has zanaflex and uses it more for her hips and back. She reports that her mother has ankylosing spondylitis Trazodone helps with her sleep and uses gabapentin twice a day. She did bring up labs on her phone - uric acid 4.8, B27 negative RF, CCP negative, normal sed rate, CRP 2.2. Does follow with Psychiatry and recently started ketamine treatment for her depression/PTSD. Musculoskeletal ROS: . Abnormal: joint pain and neck pain . Pain scale (0-10): 7 Other ROS: . Constitutional: fatigue and trouble sleeping . Head headaches . Eyes: normal . Ears, nose, throat, mouth: has some bad teeth and pain form that . Cardiovascular: normal . Respiratory: normal . Gastrointestinal: normal and constipation . Genitourinary: normal . Skin: normal . Neurologic: numbness hands All other ros reviewed and negative Social History: Social History Tobacco Use Smoking status: Every Day Types: Vaporizer Smokeless tobacco: Never Substance Use Topics Alcohol use: Yes Comment: occ Vaping/E-Cigarette Use Vaping/E-Cigarette Substances Vaping/E-Cigarette Devices Current Outpatient Medications Medication Sig Dispense Refill traMADol HCl 50 MG Oral Tablet (Ultram) As needed busPIRone HCl 15 MG Oral Tablet (Buspar) 1 twice daily Tylenol PM Extra Strength 500-25 MG Oral Tablet (diphenhydrAMINE-APAP (sleep)) Take 1 Tablet by mouth 3 times a day as needed for Itching. Omeprazole 40 MG Oral Capsule Delayed Release (PriLOSEC) Amphetamine-Dextroamphet ER 25 MG Oral Capsule Extended Release 24 Hour (Adderall XR) 1 daily PROzac 40 MG Oral Capsule 2 Capsules. 2 daily traZODone HCl 50 MG Oral Tablet (Desyrel) 1 Tablet. As needed Rexulti 3 MG Oral Tablet 1 daily tiZANidine HCl 2 MG Oral Tablet (Zanaflex) As needed Amoxicillin 500 MG Oral Capsule (Amoxil) 1 three times daily clonazePAM 1 MG Oral Tablet (KlonoPIN) 1 Tablet. As needed Gabapentin 300 MG Oral Capsule (Neurontin) 1 in Am, 2 at bedtime No current facility-administered medications for this visit. Physical Exam: Temp 36.3 C (97.3 F) (Infrared ) | Wt 64.9 kg (143 lb) General: alert, healthy, no distress, and well nourished Neck: supple, no adenopathy, thyroid normal size, non-tender, without nodularity Lymph: no palpable lymphadenopathy Heart: regular rate & rhythm and no gallops Lungs: clear to auscultation , no rales, wheezes or rhonchi Abdomen: abdomen soft, non-tender, and normal bowel sounds Extremities: no clubbing, no cyanosis Musculoskeletal Exam: Tenderness to palpation to the cervical paraspinal muscles No synovitis to the hands No knee effusions Some limitation on cervical rotational range of motion right and left on active and passive range of motion Assessment: (M79.7) Fibromyalgia (primary encounter diagnosis) (M54.2) Cervicalgia She continues to struggle with chronic pain especially in her cervical neck region. Will get x-rays. Unfortunately not many treatment options given her health history and previously tried meds along with her psychiatric disorders. Plan: 1. Continue current medications as prescribed by Psychiatry and PCP 2. Cervical neck x-rays ordered 3. Discussed natural remedies and [id number] modalities for her cervical neck pain, discuss yoga and bryanna chi 4. RTC in 1 yr Roberto Camilo MD Department of Rheumatology documented in this encounter Nursing Notes * Gabriela Johnson LPN - 06/17/2024 1:10 PM EST Chief Complaint Patient presents with Rheum Follow Up Recheck fibromyalgia documented in this encounter Plan of Treatment Upcoming Encounters Date Type Department Care Team (Late st Contact Info) Description 06/17/2024 3:15 PM EST Imaging Radiology [facility] [address] [place] [address] 07/06/2025 1:40 PM EST Office Visit Rheumatology [facility] [address] [facility] [place] [address] Roberto Camilo MD [address] [place] [address] Scheduled Orders Name Type Priority Associated Diagnoses Orde r Schedule XR C SPINE 6 OR MORE VIEWS Medical Imaging Routine Fibromyalgia Cervicalgia Ordered: 06/17/2024 Health Maintenance Due Date Last Done Comments Lipid Panel 1984 Pneumococcal Vaccine: Pediatrics (0 to 5 Years) and At-Risk Patients (6 to 64 Years) (1 of 2 - PCV) 1990 Depression Monitoring 1996 HIV Screening 1999 Hepatitis C Screening 2002 Hepatitis B Vaccine (1 of 3 - 19+ 3-dose series) 2003 Pap Smear 2005 Cervical Cancer Screening 2014 HPV/Co-Test 2014 DTap/Tdap Vaccines (2 - Tdap) 01/03/2019 01/03/2009 COVID-19 Vaccine ( - 2023-2 5 season) 2024 Influenza Vaccine (FLU shot) (#1) 2024 05/27/2017, 05/12/2015, 06/07/2013 Mammogram 2024 HPV (Gardasil) Vaccine Aged Out No lo nger eligible based on patient's age to complete this topic MENINGOCOCCAL (MENACTRA/MENVEO) Aged Out No longer eligible b ased on patient's age to complete this topic documented as of this encounter Medical Devices Not on filedocumented as of this encounter Visit Diagnoses Diagnosis Fibromyalgia- Primary Mylagia and myositis, unspecified Cervicalgia documented in this encounter Care Teams Livestock Exhibitor Relationship Specialty Start Date End Date Ria Echeverria MD [address] [address] PCP - General Family Medicine 11/17/18 documented as of this encounter
[2024-10-16] MEDS: NICOTINE 21 MG/24 HR TDSY TD SCH (09:03)
[2024-10-16] MEDS: LORazepam 1 MG TAB PO PRN (09:03)
[2024-10-16] MEDS ORDERED: tiZANidine HCL 4 MG TABLET PO PRN (09:52)
[2024-10-16] MEDS: GABAPENTIN 300 MG CAP PO SCH ×2 (10:27→21:37)
[2024-10-16] MEDS: FLUoxetine HCL 20 MG CAP PO SCH (10:27)
[2024-10-16] MEDS: traMADol HCL 50 MG TABLET PO PRN (14:29)
[2024-10-16] MEDS: lamoTRIgine 25 MG TAB PO SCH (15:06)
[2024-10-16] MEDS: ARIPiprazole 5 MG TAB PO SCH (15:06)
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
[2024-10-16] MEDS: SULFAMETHOXAZOLE/TRIMETHOPRIM DS 800/160MG TAB PO SCH (21:39)
[2024-10-16] MEDS: tiZANidine HCL 4 MG TABLET PO PRN (21:40)
[2024-10-17] MEDS: hydrOXYzine HCl 25 MG TAB PO PRN (02:35)
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
[2024-10-17] MEDS: hydrOXYzine HCl 25 MG TAB PO SCH (21:05)
[2024-10-17] MEDS: ZOLPIDEM TARTRATE 5 MG TAB PO SCH (21:07)
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
[2024-10-19] MEDS: POLYETHYLENE (MIRALAX) 17 GM PACK PO ONE (12:09)
[2024-10-19] MEDS: PSYLLIUM or GUAR GUM FIBER 4GM PACKET PO SCH (13:01)
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
[2024-10-20] MEDS: NICOTINE POLACRILEX 2 MG GUM MT PRN (07:05)
[2024-10-20] MEDS: busPIRone 15 MG TAB PO SCH (13:47)
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
[2024-10-20 18:39] LABS: Amphetamine Urine, Confirm 10421 ng/mL (<250); MDA negative; MDEA negative; MDMA (Ecstasy) Urine, Confirm negative; Marijuana Quant, GCMS Urine >5000 ng/mL (<5); Methamphetamine, Ur Confirm NEGATIVE ng/mL (<250)
[2024-10-20] MEDS: ZOLPIDEM TARTRATE 5 MG TAB PO SCH (21:50)
[2024-10-21] MEDS: FLUoxetine HCL 20 MG CAP PO SCH (09:10)
[2024-10-21] MEDS ORDERED: EUCERIN CR 120 GM JAR EXT PRN (14:32)
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
[2024-10-21] MEDS: ACETAMINOPHEN 325 MG TAB PO PRN (15:42)
[2024-10-22 06:26] VITALS: BP 112/77; RESP 16; TEMP 98.4
[2024-10-22 08:05] VITALS: PULSE 70
[2024-10-22 08:13] LABS: Estimated Average Glucose 91 mg/dl; Hemoglobin A1C 4.8 % (4.5-5.6)
[2024-10-22 08:30] LABS: Chol HDL Ratio 3.6 (0-5)
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
== END 2024-10-22 10:05 | disposition home or self-care (01) | DRG 880 ==
LOC: ED 16:22 → 3S 21:45